=== PATIENT | female | born 1965 | race Caucasian/White ===

== ENCOUNTER → 2018-05-10 14:23 | Outpatient (CLI) | payer OTHER, SELFPAY ==
--- NOTE | 2018-05-10 | DI.CT.S_ITS ---
PROCEDURE: CT CERVICAL SPINE WO CON INDICATIONS: ARTHRODESIS STATUS/NECK PAIN TECHNIQUE: Noncontrast 3 mm thick sections acquired from the skull base to the T4 level. Sagittal and coronal reformats were then constructed. For radiation dose reduction, the following was used: automated exposure control, adjustment of mA and/or kV according to patient size. COMPARISON: [facility] [place], CR, XR CERVICAL SPINE 2 OR 3 VIEWS, 05/03/2018, 13:33. [facility] [place], CR, XR CERVICAL SPINE 2 OR 3 VIEWS, 02/09/2018, 16:32. [facility] [place], CR, XR CERVICAL SPINE 2 OR 3 VIEWS, 12/07/2017, 8:57. [facility], CT, C-SPINE WITHOUT CONTRAST, 08/23/2017, 12:48. FINDINGS: Image quality: Excellent. Bones: There is a new finding of anterolisthesis of C3 on C4 by 4 mm, across the disc/endplate prosthesis at this level. A similar disc/endplate prosthesis at C45 has been removed, with anterior interbody fixation device placed subsequent to the most recent available CT scan from 08/23/17. There has been a prior fusion between C5 and C6, stable. A prior anterior fusion plate crossing C6-C7 appears stable also. Soft tissues: Prevertebral soft tissues are normal in thickness. No paravertebral hematomas. No apical pneumothoraces. IMPRESSION: Interval development of anterolisthesis by 4 mm of C3 on C4 in this patient who has previously had a greater degree of anterolisthesis of C4 on C5, stabilized by removal of the prior endplate/disc prosthesis and anterior fixation. On the prior CT the C3-C4 relationship did not include anterolisthesis. No other change identified. Dictated by: Jerod Couch M.D. on 05/10/2018 at 16:24 Approved by: Jerod Couch M.D. on 05/10/2018 at 16:29
== END ==
PROVIDERS: PCP Internal Medicine; Visit Provider Orthopaedic Surgery
DX: M54.2 Cervicalgia (principal); M43.12 Spondylolisthesis, cervical region; Z98.1 Arthrodesis status
CPT/HCPCS: 72125

== ENCOUNTER → 2018-09-18 10:54 | Outpatient (CLI) | payer OTHER, SELFPAY ==
--- NOTE | 2018-09-18 | DI.NM.S_ITS ---
PROCEDURE: [place] BONE SPECT RADIOPHARMACEUTICAL: 17.6 mCi Tc-99m MDP IV. INDICATIONS: Unspecified inflammatory spondylopathy, cervical r TECHNIQUE: Delayed bone scintigrams were obtained of the region of interest 3-4 hours after intravenous administration of Tc-99m MDP. Additional tomographic (SPECT) imaging was performed and displayed in axial, coronal, and sagittal planes. COMPARISON: [facility], CT, CT CERVICAL SPINE WO CON, 05/10/2018, 14:31. [facility], RF, CERVICAL FACET, 08/24/2018, 9:53. FINDINGS: Asymmetric mild to moderate a.c. joint osteoarthritis is present, right greater than left. Note is made of a focus of relatively prominent isotope uptake seen at a single rib on the right, likely the right sixth rib laterally, in a position not typically involved by the trauma. Note is made of elevated isotope deposition within the cervical spine from C3-C7, in the areas of prior surgical intervention. No specific prominent focus of isotope deposition is seen that would indicate device loosening or disruption. Note is also made of right and left-sided elevated isotope uptake over the middle and lower thirds of the cervical spine facet joints, left slightly greater than right. IMPRESSION: 1. Expected pattern of isotope deposition through the cervical spine, from C3-C7, considering the operative procedures that had been performed in these areas and the degenerative changes present seen on recent CT scanning from April of this year. No focus suggestive of of device loosening or disruption is identified. 2. Bilateral facet osteoarthritic change is present over the middle and lower thirds of the cervical spine, left slightly greater than right. 3. Unexplained focus of single rib involvement, likely the sixth rib on the right, near the anterior border of the scapula in an area generally not involved by trauma. Please correlate clinically for whether workup for infection or neoplasm is warranted. 4. Right greater than left a.c. joint osteoarthritic change. Dictated by: Jerod Couch M.D. on 09/18/2018 at 16:36 Approved by: Jerod Couch M.D. on 09/18/2018 at 16:46
== END ==
PROVIDERS: PCP Internal Medicine; Visit Provider Orthopaedic Surgery
DX: M46.92 Unspecified inflammatory spondylopathy, cervical region (principal); M19.012 Primary osteoarthritis, left shoulder; M19.011 Primary osteoarthritis, right shoulder; M47.812 Spondylosis without myelopathy or radiculopathy, cervical region
CPT/HCPCS: 78320; A9503

== ENCOUNTER → 2018-09-25 15:09 | Outpatient (CLI) | payer OTHER, SELFPAY ==
--- NOTE | 2018-09-25 | DI.RAD.S_ITS ---
This blank DEXA report has been sent in error by the PACS system. The correct and complete report will be forthcoming in 1-2 days. Thank you for your patience and understanding. Dictated by: Milo Kyle M.D. on 09/25/2018 at 16:54 Approved by: Milo Kyle M.D. on 09/25/2018 at 16:54
== END ==
PROVIDERS: PCP Internal Medicine; Visit Provider Internal Medicine
DX: Z78.0 Asymptomatic menopausal state (principal); M81.0 Age-related osteoporosis without current pathological fracture; Z90.722 Acquired absence of ovaries, bilateral; Z82.62 Family history of osteoporosis
CPT/HCPCS: 77080; 77081

== ENCOUNTER → 2018-10-02 10:27 | Outpatient (CLI) | payer OTHER, SELFPAY ==
--- NOTE | 2018-10-02 | DI.CT.S_ITS ---
PROCEDURE: CT CHEST WO CON INDICATIONS: DEFORMITY OF CHEST AND RIB TECHNIQUE: Noncontrast 5 mm thick sections acquired from the pulmonary apices to the posterior costophrenic angles. 7 mm thick coronal and sagittal MIP reformats were then acquired. For radiation dose reduction, the following was used: automated exposure control, adjustment of mA and/or kV according to patient size. COMPARISON: [place], [place], [place] BONE SPECT, 09/18/2018, 14:16. FINDINGS: Image quality: Excellent. Lungs and pleura: No acute air space opacities. No pleural effusions or pneumothorax. Central and peripheral airways are patent and normal in caliber. Mediastinum: Heart size is normal. No pericardial effusion. No mediastinal adenopathy by size criteria. Thoracic aorta and central pulmonary arteries are normal in size. Esophagus is normal in caliber. No hiatal hernia. Bones and chest wall: No suspicious bony lesions. A healing sixth right lateral rib fractures noted (series 3, image 26). This most likely corresponds with the focus of abnormal radiotracer uptake on the comparison bone scan dated 09/18/18. No vertebral body compression fractures. No axillary or supraclavicular adenopathy by size criteria. Thyroid gland is unremarkable. Abdomen: Visualized upper abdominal solid organs and bowel loops appear normal in the absence of contrast. IMPRESSION: 1. Solitary healing right sixth lateral rib fracture which corresponds with the abnormal focus of radiotracer uptake on the comparison bone scan dated 09/18/18. 2. No other bony abnormalities. 3. No cardiopulmonary abnormalities. Dictated by: Kajal Ewing M.D. on 10/02/2018 at 13:33 Approved by: Kajal Ewing M.D. on 10/02/2018 at 13:38
== END ==
PROVIDERS: PCP Internal Medicine; Visit Provider Orthopaedic Surgery
DX: M95.4 Acquired deformity of chest and rib (principal); S22.31XD Fracture of one rib, right side, subsequent encounter for fracture with routine healing
CPT/HCPCS: 71250

== ENCOUNTER 2018-11-24 08:43 | Day surgery (SDC) | payer OTHER, SELFPAY ==
[2018-11-24] VITALS (7 sets, daily range): BP systolic 104–114; BP diastolic 62–76; PULSE 73–110; RESP 14–19; TEMP 36.6–36.7; O2SAT 96–100; BMI 25.7
--- NOTE | 2018-11-24 | PATH_ITS ---
[facility] Accession Number: [id number] . 01 Material submitted: . PART A: SIGMOID POLYP PART B: SIGMOID POLYP AT 15CM . 02 Diagnosis: A. Sigmoid Colon, Polyp, Biopsy: Hyperplastic polyp. . B. Sigmoid Colon, Polyp at 15 cm, Biopsy: Hyperplastic polyp. MRV/11/27/2018 . 02 Electronically signed: . Radha Gaming MD, Pathologist NPI- [id number] . 01 Gross description: . Part A: SIGMOID POLYP: Received in formalin are 2 fragment(s) of mantilla, soft tissue measuring 0.5 x 0.3 x 0.2 cm to 0.3 x 0.3 x 0.1 cm submitted entirely in 1 cassette(s) Part B: SIGMOID POLYP AT 15CM: Received in formalin are multiple fragment(s) of mantilla, soft tissue measuring 0.2 x 0.1 x 0.1 cm in aggregate submitted entirely in 1 cassette(s) /CKI /CKI . 02 Pathologist provided ICD-10: K63.5 . 02 CPT . 511313, [id number] Performed at: 01 [facility] [address] [facility], [place], [place] [id number] MD Niles Norwood MD Phone: [phone] Performed at: 02 [facility] [address] [place], [place] [id number] MD Radha Gaming MD Phone: [phone]
[2018-11-24] MEDS: SODIUM CHLORIDE 0.9% 1,000 ML 200 ML IV (09:52)
--- NOTE | 2018-11-24 10:30 | PM.HP.1 ---
History of Present Illness Date Patient Seen: 11/24/18 Time Patient Seen: 10:30 Chief complaint: 24510 SCREENING COLONOSCOPY Narrative: 53-year-old female with family history of colon cancer in her mother who was diagnosed at a very early age with the disease. By the patient's report her mother was in her 30s when she was treated for colorectal cancer. Patient has had several colonoscopies in the past with no significant findings. Last colonoscopy was 5 years ago. She presents now for colorectal surveillance given her family history. On further history today she denies any nausea, vomiting, abdominal pain, anorexia, unintended weight loss, change in bowel habits, diarrhea, constipation, melena, hematochezia, or bright red blood per rectum. 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) Surgical History History of breast surgery (Acute) History of colonoscopy (Acute) History of tonsillectomy (Acute) Family History Brother Age: 58 Hypertension Brother Age: 69 Hypertension High cholesterol Father Skin cancer Hypertension Mother Colon cancer Hypertension Stroke Sister Age: 62 Hypertension Sister Age: 68 Hypertension High cholesterol Social History household members: spouse Family & Social History Family History Brother Age: 58 Hypertension Brother Age: 69 Hypertension High cholesterol Father Skin cancer Hypertension Mother Colon cancer Hypertension Stroke Sister Age: 62 Hypertension Sister Age: 68 Hypertension High cholesterol Social History: household members spouse Meds Home Medications Medication Instructions Recorded Confirmed Type cyclobenzaprine 5 mg PO HSP #0 08/31/17 11/24/18 History acetaminophen [Tylenol Extra 500 mg PO Q6HP PRN #0 12/30/17 11/24/18 History Strength] Celebrex 200 mg BID 11/24/18 11/24/18 History Celexa 20 mg DAILY 11/24/18 11/24/18 History terbinafine 250 mg DAILY 11/24/18 11/24/18 History Allergies Allergy/AdvReac Type Severity Reaction Status Date / Time oxycodone [OXYCODONE] Allergy Severe ANAPHYLAXIS Unverified 02/01/18 12:11 gabapentin [GABAPENTIN] Allergy Intermediate RASH/ITCH Unverified 02/01/18 12:11 latex [LATEX] Allergy Mild HIVES Unverified 02/01/18 12:11 pregabalin [PREGABALIN] AdvReac Intermediate BLURRED Unverified 02/01/18 12:11 VISION, HEADACHES Review of Systems Review of Systems All systems reviewed & are unremarkable except as noted in HPI and below Exam Vital Signs (past 8 hours): - 11/24/18 09:38 Temperature 97.8 F Pulse Rate 73 Respiratory Rate 16 Blood Pressure 110/71 Pulse Oximetry 100 Oxygen Delivery Method Room Air Narrative Exam Narrative: Well-nourished well-developed female in no acute distress. Alert oriented x3. Neck is supple Regular rate and rhythm Abdomen soft, nondistended, nontender Extremities show no clubbing or cyanosis Objective Labs Labs: No recent laboratory or radiographic studies review Assessment & Plan Plan: Assessment/Plan Narrative: 53-year-old female with family history of colon cancer in her mother at an early age. Her last endoscopy was 5 years ago. Patient requires colorectal surveillance given her strong family history. Colonoscopy is once again recommended. Technical details reviewed. Risks, benefits, alternatives were explained. Risks including but not limited to sedation, aspiration, bleeding, pain, missed lesion, incomplete examination, need for further radiographic studies, colonic perforation, and need for further major abdominal surgery were all discussed in detail. All questions were answered to her satisfaction, and she voiced understanding. Consent was placed on the chart. We will proceed as above.
--- NOTE | 2018-11-24 10:34 | PM.PREOP ---
Pre-operative Note Interval Note History & Physical reviewed/Exam performed by Physician: Yes Changes to H&P: No H&P completed within 30 days and has changed as indicated here:: Patient seen and examined today. History physical examination placed on the chart. Obviously, there have been no changes within the last 15 min. Proceed with colonoscopy today as planned. ASA Class (for procedural sedation): II
[2018-11-24] MEDS: MIDAZOLAM 5 MG/5 ML VIAL IV (10:52)
[2018-11-24] MEDS: fentaNYL 250 MCG/5 ML INJ IV (10:53)
--- NOTE | 2018-11-24 11:01 | PM.OP.ENDO ---
Operative Date/Time/Diagnoses Date of procedure: 11/24/18 Time of procedure: 11:01 Pre-op diagnosis: Family history of colorectal cancer in her mother at an early age Post-op diagnosis: other (Colon polyps) Procedure & Clinicians Study performed: 1. Sedation per surgeon 2. Colonoscopy with cold forceps polypectomies Same procedure as scheduled: Yes Indications: 53-year-old female with family history of colorectal cancer in her mother who was diagnosed with the disease in her 30s. Patient has had prior colonoscopies for surveillance. Last colonoscopy was 5 years ago. She requires colorectal surveillance currently, and therefore colonoscopy is once again recommended. Surgeon: Edmar Le Procedure Notes SCOAP/Timeout: Yes Procedure in detail: After obtaining informed consent, the patient was brought to the GI suite and placed in the left lateral decubitus position on the examination table. After placement of appropriate monitors, the patient was given incremental doses of Versed and Fentanyl until an appropriate level of sedation was achieved. A time out was held per SCOAP protocol. A digital rectal examination was performed and did not reveal any masses or obstructing lesions. The colonoscope was gently passed into the patient's anus and the entire colon navigated to the level of the cecum with minimal difficulty. Once in the cecum, the scope was withdrawn being sure to go before and beyond all mucosal folds and prominences and get an excellent examination. The findings are noted above. At the level of the rectal vault, the scope was retroflexed and the internal anal canal was examined. The scope was straightened and air aspirated from the colon. The instrument was removed from the patient's body and the procedure was concluded. The patient was allowed to awaken from sedation without difficulty and taken to the post-anesthesia care unit in good condition. Scope withdrawal time: 12:40 min Sedation minutes: 25 Findings: polyp and other findings (Otherwise normal colon and rectum) Specimen(s): other (1. Sigmoid polyp above rectosigmoid junction 2. Second sigmoid polyp at 15 cm) Complications: none Recommendations: Colonscopy in 5 years, High fiber diet and Will call with biopsy results Plan for aftercare: 1. Discharge home Follow up: as needed Disposition: PACU
== END 2018-11-24 12:01 | disposition home or self-care (01) ==
PROVIDERS: PCP Internal Medicine; Visit Provider Surgery
PROC: 0DJD8ZZ Inspection of Lower Intestinal Tract, Via Natural or Artificial Opening Endoscopic (ICD-10-PCS; CPT 45378; principal; 2018-11-24 10:45)
DX: Z12.11 Encounter for screening for malignant neoplasm of colon (principal); Z80.0 Family history of malignant neoplasm of digestive organs; F41.9 Anxiety disorder, unspecified; F33.41 Major depressive disorder, recurrent, in partial remission; M79.7 Fibromyalgia; D12.5 Benign neoplasm of sigmoid colon
CPT/HCPCS: 45380; 88305; 99152; 99153; J2250; J3010

== ENCOUNTER → 2019-03-21 11:22 | Outpatient (CLI) | payer OTHER, SELFPAY ==
--- NOTE | 2019-03-21 | DI.CT.S_ITS ---
PROCEDURE: CT CERVICAL SPINE WO CON INDICATIONS: Strain of muscle, fascia and tendon at neck level TECHNIQUE: Noncontrast 3 mm thick sections acquired from the skull base to the T4 level. Sagittal and coronal reformats were then constructed. For radiation dose reduction, the following was used: automated exposure control, adjustment of mA and/or kV according to patient size. COMPARISON: [facility], CT, CT CERVICAL SPINE WO CON, 05/10/2018, 14:31. [facility], CT, C-SPINE WITHOUT CONTRAST, 08/23/2017, 12:48. FINDINGS: Image quality: Excellent. Bones: No fractures or dislocations. Visualized superior ribs are intact. Note is made of multiple prior cervical surgeries, to include interbody disc prosthesis at C3-C4 with grade 1 anterolisthesis previously present again noted at that level. Additionally, what appears to be a interbody bone graft at the disc level of C4-C5 with an anterior fusion staple is present. This was previously present also on the comparison study from April of last year. Osseous fusion between C5 and C6 appears chronic, and likely is operative in origin. There is also a C6-C7 anterior fusion plate with nonunion between the vertebral endplates at this level after presumed anterior discectomy. No subluxation is associated. Soft tissues: Prevertebral soft tissues are normal in thickness. No paravertebral hematomas. No apical pneumothoraces. IMPRESSION: Extensive multiple surgical procedures have been performed along the cervical spine from C3 inferiorly to the cervical thoracic junction. No change in alignment or evidence of device loosening or disruption is seen with reference to the prior CT scan utilizing standard technique 05/10/18. Source of new neck pain is not seen. Dictated by: Jerod Couch M.D. on 03/21/2019 at 15:37 Approved by: Jerod Couch M.D. on 03/21/2019 at 15:40
== END ==
PROVIDERS: PCP Internal Medicine; Visit Provider Orthopaedic Surgery
DX: S16.1XXD Strain of muscle, fascia and tendon at neck level, subsequent encounter (principal); M43.12 Spondylolisthesis, cervical region; M54.2 Cervicalgia; Z98.1 Arthrodesis status
CPT/HCPCS: 72125

== ENCOUNTER → 2019-08-30 19:18 | Outpatient (CLI) | payer OTHER, SELFPAY ==
--- NOTE | 2019-08-30 | DI.MRI.S_ITS ---
PROCEDURE: MR LUMBAR SPINE WO CON INDICATIONS: STRAIN OF MUSCLE, FASCIA AND TENDON OF LOWER BACK TECHNIQUE: Noncontrast sagittal T1 spin echo and T2 fast echo, sagittal STIR, axial T1 and T2 fast spin echo through the lumbar spine. In cases with scoliosis, additional coronal T2 fast spin echo may be performed. COMPARISON: [facility] [place], CR, XR LUMBAR SPINE 2 OR 3 VIEWS, 08/08/2019, 8:44. [facility], MR, L-SPINE WITHOUT CONTRAST, 10/07/2014, 13:00. FINDINGS: Image quality: Diagnostic. Alignment and Curvature: There is straightening of normal lumbar lordosis. Moderate dextroscoliosis of lumbar spine centered at L2-3 level is seen. Bone Marrow: Patient is status post right transpedicular fusion at L5-S1 level with intervertebral spacer placement. No gross marrow edema. No acute compression fracture. Grade 1 anterolisthesis of L5 on S1 is seen. Minimal retrolisthesis of L3 on L4 is noted. Vertebral body heights are preserved. No suspicious intraosseous lesion. Spinal Cord: Conus medullaris terminates at the T12-L1 level. Visualized cord demonstrates normal signal and size. Paraspinous Soft Tissues: No paravertebral masses. L1-L2: Decreased intervertebral disc space is seen. Diffuse disc bulge and bilateral facet arthrosis is seen with mild central canal stenosis, no significant neuroforaminal narrowing. L2-L3: Decreased intervertebral disc space and degenerative endplate changes are noted. There is broad-based disc bulge and bilateral facet arthrosis causing mild central canal stenosis and left-sided neuroforaminal narrowing. Bulging disc is seen contacting exiting left L2 nerve root. L3-L4: Broad-based disc bulge and bilateral facet arthrosis is seen with hypertrophy of ligamentum flavum. Moderate central canal stenosis and bilateral neuroforaminal narrowing is seen. There is likely mild compression of exiting left L3 nerve root. L4-L5: The broad-based disc bulge and bilateral facet arthrosis is seen. There is diffuse disc bulge and bilateral facet arthrosis causing moderate central canal stenosis. Right worse than left bilateral neuroforaminal narrowing is seen. L5-S1: Post surgical changes are noted. There is bilateral facet arthrosis and broad-based disc bulge. Mild central canal stenosis and bilateral neuroforaminal narrowing is seen. IMPRESSION: 1. Prior right transpedicular fusion at L5-S1 level. Grade 1 anterolisthesis of L5 on S1. No acute compression fracture. Minimal retrolisthesis at L3-4 level. 2. Moderate dextroscoliosis centered at L2-3 level. 3. Degenerative disc bulge and bilateral facet arthrosis throughout lumbar spine causing [id number] central canal stenosis and left worse than right bilateral neuroforaminal narrowing as described above. Dictated by: Milo Kyle M.D. on 08/31/2019 at 10:45 Approved by: Milo Kyle M.D. on 08/31/2019 at 10:53
== END ==
PROVIDERS: PCP Internal Medicine; Visit Provider Orthopaedic Surgery
DX: S39.012D Strain of muscle, fascia and tendon of lower back, subsequent encounter (principal); M47.816 Spondylosis without myelopathy or radiculopathy, lumbar region; M47.817 Spondylosis without myelopathy or radiculopathy, lumbosacral region; M51.36 Other intervertebral disc degeneration, lumbar region; M51.37 Other intervertebral disc degeneration, lumbosacral region; M48.061 Spinal stenosis, lumbar region without neurogenic claudication; M48.07 Spinal stenosis, lumbosacral region; M43.17 Spondylolisthesis, lumbosacral region; M41.86 Other forms of scoliosis, lumbar region; Z98.1 Arthrodesis status
CPT/HCPCS: 72148

== ENCOUNTER 2019-11-13 06:04 | Inpatient (IN) | payer MEDICARE, OTHER, SELFPAY ==
[2019-10-29 09:57] VITALS: BMI 26.6
[2019-11-13] VITALS (19 sets, daily range): BP systolic 88–147; BP diastolic 47–79; PULSE 77–110; RESP 11–20; TEMP 35.7–37.3; O2SAT 93–100; BMI 26.9
--- NOTE | 2019-11-13 | DI.RAD.S_ITS ---
PROCEDURE: XR LUMBAR SPINE 2-3V INDICATIONS: L1-2, L2-3, L3-4, L4-5 XLIF TECHNIQUE: Fluoroscopic images were obtained during an operative procedure and submitted for interpretation following the completion of the procedure. COMPARISON: [facility], , L-SPINE 2-3 VIEWS, 02/24/2016, 8:30. FINDINGS: These fluoroscopic images were performed for intraoperative localization. On these images, the apparent disc spacers can be seen at L1-L2, L3-L4, and L4-L5, with an apparent artificial disc at L2-L3. Please correlate with intraoperative findings. IMPRESSION: Normal intraoperative examination. Dictated by: Tavo Scruggs M.D. on 11/13/2019 at 9:46 Approved by: Tavo Scruggs M.D. on 11/13/2019 at 9:48
--- NOTE | 2019-11-13 07:29 | PM.PREOP ---
Pre-operative Note Interval Note History & Physical reviewed/Exam performed by Physician: Yes Changes to H&P: No
[2019-11-13] MEDS: LACTATED RINGERS 1,000 ML 42 ML IV ×2 (07:30→09:56)
--- NOTE | 2019-11-13 07:37 | PM.OP.1 ---
Operative Date/Time/Diagnoses Date of procedure: 11/13/19 Time of procedure: 10:13 Pre-op diagnosis: lumbar stenosis with radiculopathy thoracolumbar scoliosis history lumbar fusion Post-op diagnosis: same Procedure & Clinicians Procedure: L1-2, L23, L34, L45 anterior fusion with cages allograft bone Same procedure as scheduled: Yes Indications: [age] year old the with intractable pain from stenosis. They had failed conservative management and requested operative intervention. Risks and benefits of surgery were discussed and appropriate consents were obtained. Surgeon: Geo Wilson Solution Sales Senior Executive: Urvashi Hollingsworth Anesthesia Type: General Operative Notes Findings: None Closure Type: primary Specimen(s): none sent Prosthetic devices, grafts, tissues, transplants, or devices: NuVasive XLIF cages Applied: catheter Estimated Blood Loss (mL): 75 Procedure in detail: Patient was brought to the operating room and intubated on the table. Time-out was performed. They were then rolled over to the lateral decubitus position with the [id number]. The table was bent and they were taped down in the correct position. X-rays were taken to confirm a true AP and lateral. Preoperative antibiotics were given. The left flank was prepped and draped in standard sterile fashion. Using fluoroscopy, a 3 cm incision was made above the iliac crest. We bluntly dissected down with Metzenbaum scissors and split the 3 abdominal muscle layers. We dissected out the retroperitoneal space and using finger guidance, brought our 1st dilator down to the psoas muscle. Using neuromonitoring and fluoroscopy, we placed it through the psoas onto the L4-5 disc space in an anterior position and gradually pulled the dilator posteriorly along the disc space. We placed our guidewire and measured our depth for the retractor. We then dilated with the next 2 dilators and then placed our retractor over the dilators. Position was confirmed with fluoroscopy and the retractor was locked down to the bar. We opened up the retractor and checked with neuro monitoring. We then placed the ras and again checked with neuro monitoring. The retractor was opened further and the ALL retractor was placed. An annulotomy was performed. We then performed a complete diskectomy with ring curette, pituitary, box osteotome. A Ovalle was advanced across the disc space under fluoroscopy to release the lateral annulus on the opposite side. We then used sequentially larger trials and confirmed under fluoroscopy. An XLIF cage was packed with Osteocel bone graft and impacted into the L4-5 disc space with fluoroscopy for the anterior fusion at this level. The wound was irrigated. The retractor was closed down. The ras was removed. We carefully removed the retractor with direct visualization to make sure there was no neurovascular or abdominal injury. We then went up to the L3-4 level. Again we used the dilators and placed a retractor. A complete diskectomy was performed as well as lateral annulus released. We trialed with the 8, and then the 10 mm trial. When we were impacting the 10 mm trial, this kicked forward and tore through part of the ALL on the right-hand side but was still intact on the left anterior portion. We carefully placed another cage packed with bone graft for the anterior fusion at L3-4, with care to try to put it as posterior as possible as it kept trying to kick forward, but it was still well contained at the end, although slightly out laterally to maintain this position. The wound was irrigated and the retractor was removed with direct visualization. We then went up to L2-3. Again we we used our dilators then placed a retractor. This was placed on top of her osteophytes at this level and then opened up and pressed around the edges. We used a box osteotome to break through the osteophyte and then performed a complete diskectomy with lateral annular release. We trialed and placed another cage with bone graft for the anterior fusion at L2-3. This 1 was tight enough that I elected to use the Modulus titanium cage for stability. The wound was irrigated and the retractor was removed. Finally we went up to L1-2. Again we used our dilators placed a retractor. We performed a complete diskectomy with lateral release. We trialed and placed our cage with bone graft for the anterior fusion at L1-2. Wound was irrigated and the retractor was removed. Final x-rays were taken. The muscle fascia was closed, superficial tissue was closed. The skin was closed. Sterile dressing was placed. The patient was then rolled over, extubated, brought to the recovery room with no complications. Complications: none Post-operative Condition: stable Disposition: PACU Plan for aftercare: Inpatient. Plan for return for a T10 through S1 posterior instrumented fusion in 2 days.
[2019-11-13] MEDS: CEFAZOLIN 2 GM/100 ML FROZ.PIGGY IV ×3 (07:45→23:34)
--- NOTE | 2019-11-13 08:31 | SUR.OPER ---
Right lateral on padded OR table. Head on pillow, gel axillary roll, pillows x2 to support left arm. Legs flexed, pillows between legs, gel pad under down leg and ankle. Multiple passes of 3 inch cloth tape across shoulder, hip, upper and lower legs to secure patient on OR table by surgeon.
[2019-11-13] MEDS: THROMBIN (RECOMBINANT) 5,000 UNIT VIAL 5000 UNIT TOP (08:36)
[2019-11-13] MEDS: SODIUM CHLORIDE 0.9% 1,000 ML, GENTAMICIN 80 MG IRR (08:37)
[2019-11-13] MEDS: BUPIVACAINE 0.25% W/ EPI (PF) 10 ML VIAL 60 ML INJ (10:09)
[2019-11-13] MEDS: VANCOMYCIN 1,000 MG VIAL 1000 MG TOP (10:14)
--- NOTE | 2019-11-13 12:23 | SUR.PHASEI ---
Patient taken up to room 223 in bed by nursing staff. Receiving RN at bedside to receive patient.
[2019-11-13] MEDS: LACTATED RINGERS 1,000 ML 125 ML IV ×2 (12:38→20:13)
--- NOTE | 2019-11-13 13:19 | PC.NURSE ---
Addendum entered by Marianela Moe R.N. 11/13/19 14:33: Pt sat upright, more alert, having, water, saltine crackers and applesauce. C/O 8/10 pain to BLE, states has chronic pain to RLE at home. Dilaudid IV prn given at 1424. Plan to have po pain management after tolerating snack. Original Note: Day Shift- Report rec'd from RN Coordinator Keenan who rec'd report from PACU. Pt arrived to unit via bed at 1210 into room 223. Pt sleepy, arousable upon arrival, able to answer questions appropriately, denies pain, repositioned onto left side then 30 mins later onto right side supported with pillows behind back and in between legs. Ice pack to left flank/back incision dressing CDI area. VSS, afebrile. O2 sat 95-98% on RA, RR 14bpm , shallow, encouraged to take deep breaths. repositioned using SMOOTH bed tilt function. Pt's Orville in room, assisted with admission assessment, Orville took pt's home meds home after med review. Oriented to stuart light, bed tilt with staff assist, post op vital signs check. Pt denies pain, nausea, wants to sleep. Will hold Scheduled Celebrex until more alert and having fluids, light food. IVF started per DEC. Bilateral foot SCD's in place. call light within reach, bed alarm on.
[2019-11-13] MEDS: HYDROMORPHONE 0.5 MG INJ IV (14:24)
--- NOTE | 2019-11-13 15:15 | PT.IIE ---
Current Diagnoses Other forms of scoliosis, lumbar region (11/13/19) Spinal stenosis, lumbar region with neurogenic claudication (11/13/19) Arthrodesis status (11/13/19) Surgery Performed Operation Date: 11/13/19 07:45 Actual Procedures p L1-2,L23,L34,L45 anterior fusion w/cages and bone graft - Geo Wilson MD Operation Date: 11/15/19 07:45 <No data on this case meets the specified criteria> Surgical History (Last Updated 10/29/19 @ 10:43 by Macie Recinos RN) H/O: hysterectomy (Acute ~2014) History of breast surgery (Acute) History of colonoscopy (Acute) History of hysterectomy (Acute) History of lumbar fusion (Acute ~2015) History of lumbar surgery (Acute ~2015) History of lumbar surgery (Acute) History of repair of left rotator cuff (Acute) History of repair of right rotator cuff (Acute) History of surgery (Acute) History of tonsillectomy (Acute) Hx of arthroscopy of right knee (Acute 12/30/17) Hx of left knee surgery (Acute) Hx of rhinoplasty (Acute) S/P cervical spinal fusion (Acute) Status post Mohs surgery (Acute) Medical History (Last Updated 10/29/19 @ 10:45 by Macie Recinos RN) Anxiety (Acute) Atypical chest pain (Acute) Balance problem (Acute) Bartholin's cyst (Acute) Chronic constipation (Acute) Chronic low back pain (Acute) Cyst in hand (Acute) Depression (Acute) Difficulty in walking (Acute) Easy bruisability (Acute) Family history of colon cancer in mother (Acute) Fibromyalgia (Acute) History of hysteroscopy (Acute) Jaw fracture (Acute) 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) Osteoarthritis (Acute) Osteoporosis (Acute) Raynaud's disease (Acute) Rheumatoid arthritis (Acute) RLS (restless legs syndrome) (Acute) Scoliosis (Acute) Physical Therapy Inpatient Evaluation/Re-Eval M1 PT/OT-IP Prior Functional Status Start: 11/13/19 16:31 Freq: NEEDED Status: Active Protocol: Document 11/13/19 15:15 AB (Rec: 11/13/19 16:51 AB [id number]) Medical Review Prior Functional Status Medical History Reviewed Yes Communication able to make needs known Mobility and Gait pt stated that he is independent with all mobilities and ambulation without AD Social History Household Members spouse Living Arrangements RV Number of Floors (Floors) Two Floors Number of Stairs To Enter/Railing? pt lives in a 5th wheel has 4 steps to enter with L rail ascending has 2 steps to the living room with R rail ascending Home Environment Standard Height Toilet,Walk in Shower,Built-In Shower Seat Home Equipment Front Wheel Walker,Raised Toilet Seat Without Armrests, Hand Held Shower Additional Social History Comment stated that she will sleep on a power recliner at home M2 PT-IP Current Condition Start: 11/13/19 16:31 Freq: NEEDED Status: Active Protocol: Document 11/13/19 15:15 AB (Rec: 11/13/19 16:51 AB [id number]) Physical Therapy Current Condition Current Condition Evaluation Date 11/13/19 Treatment Diagnosis s/p L1-5 anterior fusion; difficulty in walking Onset Date 11/13/2019 Precautions Lumbar Precautions Log Roll,No Twisting,Limit Bending,Lifting Restriction of 10 lbs,Gait Belt above Incisional Area M3 PT-IP Subjective Start: 11/13/19 16:31 Freq: NEEDED Status: Active Protocol: Document 11/13/19 15:15 AB (Rec: 11/13/19 16:51 AB [id number]) Subjective Physical Therapy Visit Type Type Initial Evaluation Visit Start Time 15:15 Visit Stop Time 15:40 Total Visit Minutes 25 Notes pt s/p L1-5 anterior fusion with cage and plans to have another surgery in 2 days/ for T10-S1 posterior fusion per EMR Number of ADULT NEUROLOGIST Visits 0 Physical Therapy Visit Comments Patient Comments pt agreeable to do PT Therapy Pain Assessment Pain When Pain Assessed At Rest Pain Present Pain Present Pain Reported Location lower back Intensity 3 Scale Used Numeric (1 - 10) Pain Management Techniques Re-positioning,Timing of Activity with Medications M4 PT-IP Mobility and Gait Start: 11/13/19 16:31 Freq: NEEDED Status: Active Protocol: Document 11/13/19 15:15 AB (Rec: 11/13/19 16:51 AB [id number]) PT-Bed Mobility Assessment Rolling Type of Rolling Log Rolling Level of Assist Standby Assistance Supine to Sit Supine to Sit Standby Assistance PT-Transfer Assessment Sit to and From Stand Sit to and from Stand Contact Guard Assistance,1 Person Assistance Equipment Transfer Assistive Device Gait Belt,Front Wheeled Walker Orthotic/Prosthetic Devices or Brace: No Transfers Transfer Destination Chair Transfer Technique ambulated using FWW Transfer Ability Level of Assist Contact Guard Assistance, Minimal Assistance,1 Person Assistance,Use of Upper Extremities Comments Mobility Comments pt agreed to do PT. BP: 116/ 74. reviewed back precautions and log roll bed mobility. pt completed supine to sit SBA . pt was able to sit on EOB SBA. completed sit to stand CGA and cues. ambulated towards the chair using FWW ~ 10 ft requiring CGA to occasionaly min A and cues. pt refused further ambualation but agreed to sit up on chair . positioned pt on chair. call light and table placed within reach. Gait Assessment Gait Gait Assistance Required: Contact Guard Assist,Minimum Assistance Distance (Feet) 10 Able to Maintain Weight Bearing Status Yes During Gait Assistive Devices Assistive Device Gait Belt,Front Wheeled Walker Orthotic/Prosthetic Devices or Brace: No Gait Deviations General Gait Pattern Antalgic,Decreased Stride Length,Decreased Feet Clearance Factors Limiting Gait Function Factors Limiting Gait Function Decreased Activity Tolerance, Decreased Strength,Limited Range of Motion,Pain,Poor Balance,Poor Safety Awareness Comments Gait Comments pls refer to mobility section for details PT-Balance Assessment Sitting Balance and Reactions Static Sitting Balance Ability Good Dynamic Sitting Balance Ability Good Standing Balance and Reactions Static Standing Balance Ability Fair Dynamic Standing Balance Ability Fair Device Used FWW M5 PT-IP Objective Assessments Start: 11/13/19 16:31 Freq: NEEDED Status: Active Protocol: Document 11/13/19 15:15 AB (Rec: 11/13/19 16:51 AB [id number]) Orientation Orientation/Cognition Level of Alertness Alert Orientation Name,Age,Place,Situation Language Function Ability No Deficits Noted Safety Awareness Understands Safety Issues Memory Description No Deficits Noted Gross Range of Motion Lower Extremity ROM Assessment Within Functional Limits Strength Lower Extremity Strength Assessment Bilaterally Impaired Hip 4-/5 Knee 3+/5 Coordination Assessment Gross Coordination Gross Coordination WNL Muscle Tone Muscle Tone WNL Yes M6 PT-IP Treatment Start: 11/13/19 16:31 Freq: NEEDED Status: Active Protocol: Document 11/13/19 15:15 AB (Rec: 11/13/19 16:51 AB [id number]) Physical Therapy Treatment Education Education Provided Precautions,Weight Bearing Status,Post-Op Packet,Safety M7 PT-IP Assessment and Plan Start: 11/13/19 16:31 Freq: NEEDED Status: Active Protocol: Document 11/13/19 15:15 AB (Rec: 11/13/19 16:51 AB [id number]) PT Summary Assessment and Plan Potential Rehabilitation Potential Good Status of Condition at Evaluation Stable Summary Impairments Pain,ROM,Strength,Balance, Coordination,Sensation,Tone, Cognition,Bed Mobility, Transfers,Gait,Activity Tolerance Assessment Summary pt s/p L1-L5 anterior fusion and plans to have another surgery on for T10-L1 posterior fusion. currently, pt requires CGA to min A with ambulation. d/c plan depending on level of assistance after 2nd surgery but pt plans to go home and spouse will assist pt and her son will also be able to assist when spouse is not available. will continue to assess progress. Goals Bed Mobility Goal Independent Transfer Goal Independent,Front Wheeled Walker Gait Goal Independent,Front Wheel Walker Gait Distance 150 Other Goals up/down 4 steps L rail ascending up/down 2 steps R rail ascending Days to Meet Goals 10 Frequency of Treatment Frequency Of Treatment Twice a Day Treatment Plan Physical Therapy Treatment Plan Bed Mobility Training,Transfer Training,Gait Training, Therapeutic Exercise,Balance Retraining,Post Op Education, Discharge Planning,Hot or Cold Pack,Neuromuscular Re-ed, Coordination Retraining,Manual Therapy Other Recommendations and Next Treatment ambulation, bed mobility Focus Recommendations To Nursing Amount of Assist Needed 1 Person Assist Discharge Recommendations PT Discharge Recommendations Home with Assistance Other Discharge Recommendations d/c plan depending on level of assistance after 2nd surgery on 11/15/2019
[2019-11-13] MEDS: CELECOXIB 200 MG CAPSULE 400 MG PO (15:22)
--- NOTE | 2019-11-13 15:35 | CM.DANOTE ---
Discharge Planning/Care Management CM Discharge Assessment Start: 11/13/19 15:34 Freq: Status: Active Protocol: Document 11/13/19 15:35 ITV (Rec: 11/13/19 15:35 ITV [id number]) Discharge Planning Assessment Advance Directives? No History Provided By Medical Record Prior Living Arrangements RV Household Members spouse Review Status In Process Pre-Anesthesia Assessment Start: 10/29/19 09:57 Freq: Status: Complete Protocol: Document 10/29/19 09:57 CAB (Rec: 10/29/19 10:46 CAB [id number]) Pre-Anesthesia Assessment Preferred Name Randa Patient Information Reviewed Via Phone Assessment Assessment Completed With Patient Primary Care Provider NAV[employer] Specialist Seen Swimming Pool Salesperson,Orthopedist, Animal Ride Manager,Other Primary Language Setswana Caustic Room Operator Required No Height 165.1 cm Weight 72.575 kg Body Mass Index (BMI) 26.6 Hearing Ability Normal Visual Assist Magnifying Glass Dentition Type Teeth, Natural Present,Partial - Upper Barriers to Learning None Hx Anesthesia Reactions No: Pt denies Hx Family Anesthesia Reaction Yes: Mom-PONV Hx Malignant Hyperthermia No Hx Blood Transfusions No Anesthesia Review Requested No alcohol intake current Alcohol Intake Frequency Other: Occasional Smoking Status Never smoker Substance Use Type does not use Pain Present Pain Reported Musculoskeletal Symptoms Abnormal Gait,Back Pain, Difficulty Walking,Joint Stiffness,Muscle Weakness,Neck Pain,Numbness,Radiating Pain into Limb,Tingling History of Falling (Recent or History of Yes ) Patient is completely paralyzed or No completely immobile Mental Status Oriented to own ability Is patient on oxygen? No Does patient have COOPER/SOB No Hx Sleep Apnea No Currently Taking a Beta Ady No Can You Climb a Flight of Stairs Without Yes SOB Hx Chest Pain Yes: Greater than 15 years ago , none since Hx SOB No Hx Syncope or Dizziness No Anti-Coagulant Therapy No Has a Newspaper Columnist No Cardiac Testing No Hx Pacemaker/ICD No Pacemaker Rep Required? No Cardiac Clearance Received Not Applicable Diet Type At Home Regular dysphagia Yes: Occasional, pt feels r/t mult neck surgeries Bladder Pattern Incontinent, Stress Urinary Catheter Present No Hx Urinary Self Catheterization No Diabetes No Patient No Lactating No Hx Drug Resistant Organism No Presence of External or Internal Medical No Devices Have you traveled outside the [facility] in the last 30 days? Marital Status Lives With spouse Prior Living Arrangements RV Support System Spouse Does the Patient Have Assistance After Yes Surgery Patient Discharge Plan Description Return Home Comment Pt advised 7 days total for both surgeries Feels Safe in Current Environment Yes Been Physically Hurt or Threatened By a No Person in Current Environment Do you have thoughts of harming yourself None or others? Are you currently considering suicide? No Do you have a plan to hurt yourself or No Plan others? Do You Have Any Spiritual Beliefs That No May Affect Your HC Choices? Do You Have Any Cultural Practices That No May Affect Your HC Choices? Who Can We Speak to About Patient's Care Family, friends Identifying Code for Release of Patient Declines to issue Information Health Care Proxy/Next of Kin Orville () Health Care Proxy Emergency Contact Name Orville () Emergency Contact Advance Directives? No Power of Stoneworking Belt Sander Yes Power of Stoneworking Belt Sander Name Orville Doyle Power of Stoneworking Belt Sander PAC Instructions Medications to take/avoid, Nasal antibiotic,No ETOH/ petroleum product on skin DOS, NPO,Pre-surgical wash,Sturdy shoes/comfortable clothes,Do not bring valuables and remove jewelry
--- NOTE | 2019-11-13 15:39 | CM.DANOTE ---
Discharge Planning/Care Management DCP: assessment: Initiated: Case received, EMR reviewed and pre-op assessment information noted: from 10/29: CAB. Pt's d/c plan as expressed to the pre-op RN was for d/c to home setting when stable for same. Pt has been in surgery most of the day; has now arrived to the acute care floor. Pt is a 54 year old female who admitted to care of surgeon Dr. Wilson for a planned spinal fusion/hardware removal. Planned as a 2 part surgery with next surgery scheduled for 11/15. Payer: Medicare A only and for Life. INPT admission status: confirmed by UR RN Brti. OT and PT will be seeing pt. P: DCP team to meet with pt to continue the assessment process and follow as the d/c needs are clarified. pt is well poised for snf level rehab should this be needed as she can access her Medicare A snf benefit for same. CM Discharge Assessment Start: 11/13/19 15:34 Freq: Status: Active Protocol: Document 11/13/19 15:35 ITV (Rec: 11/13/19 15:35 ITV [id number]) Discharge Planning Assessment Advance Directives? No History Provided By Medical Record Prior Living Arrangements RV Household Members spouse Review Status In Process Document 11/13/19 15:38 ITV (Rec: 11/13/19 15:39 ITV [id number]) Discharge Planning Assessment Advance Directives? No History Provided By Medical Record Prior Living Arrangements RV Household Members spouse Review Status In Process Pre-Anesthesia Assessment Start: 10/29/19 09:57 Freq: Status: Complete Protocol: Document 10/29/19 09:57 CAB (Rec: 10/29/19 10:46 CAB [id number]) Pre-Anesthesia Assessment Preferred Name Randa Patient Information Reviewed Via Phone Assessment Assessment Completed With Patient Primary Care Provider [employer] Specialist Seen Android Ios Developer,Orthopedist, Stitching Machine Setter,Other Primary Language Swedish Train Brakeman Required No Height 165.1 cm Weight 72.575 kg Body Mass Index (BMI) 26.6 Hearing Ability Normal Visual Assist Magnifying Glass Dentition Type Teeth, Natural Present,Partial - Upper Barriers to Learning None Hx Anesthesia Reactions No: Pt denies Hx Family Anesthesia Reaction Yes: Mom-PONV Hx Malignant Hyperthermia No Hx Blood Transfusions No Anesthesia Review Requested No alcohol intake current Alcohol Intake Frequency Other: Occasional Smoking Status Never smoker Substance Use Type does not use Pain Present Pain Reported Musculoskeletal Symptoms Abnormal Gait,Back Pain, Difficulty Walking,Joint Stiffness,Muscle Weakness,Neck Pain,Numbness,Radiating Pain into Limb,Tingling History of Falling (Recent or History of Yes ) Patient is completely paralyzed or No completely immobile Mental Status Oriented to own ability Is patient on oxygen? No Does patient have COOPER/SOB No Hx Sleep Apnea No Currently Taking a Beta Ady No Can You Climb a Flight of Stairs Without Yes SOB Hx Chest Pain Yes: Greater than 15 years ago , none since Hx SOB No Hx Syncope or Dizziness No Anti-Coagulant Therapy No Has a Early Childhood Special Educator No Cardiac Testing No Hx Pacemaker/ICD No Pacemaker Rep Required? No Cardiac Clearance Received Not Applicable Diet Type At Home Regular dysphagia Yes: Occasional, pt feels r/t mult neck surgeries Bladder Pattern Incontinent, Stress Urinary Catheter Present No Hx Urinary Self Catheterization No Diabetes No Patient No Lactating No Hx Drug Resistant Organism No Presence of External or Internal Medical No Devices Have you traveled outside the [facility] in the last 30 days? Marital Status Lives With spouse Prior Living Arrangements RV Support System Spouse Does the Patient Have Assistance After Yes Surgery Patient Discharge Plan Description Return Home Comment Pt advised 7 days total for both surgeries Feels Safe in Current Environment Yes Been Physically Hurt or Threatened By a No Person in Current Environment Do you have thoughts of harming yourself None or others? Are you currently considering suicide? No Do you have a plan to hurt yourself or No Plan others? Do You Have Any Spiritual Beliefs That No May Affect Your HC Choices? Do You Have Any Cultural Practices That No May Affect Your HC Choices? Who Can We Speak to About Patient's Care Family, friends Identifying Code for Release of Patient Declines to issue Information Health Care Proxy/Next of Kin Orville quinton) Health Care Proxy Emergency Contact Name Orville alcantara) Emergency Contact Advance Directives? No Power of Sterilizer Operator Yes Power of Sterilizer Operator Name Orville Doyle Power of Sterilizer Operator PAC Instructions Medications to take/avoid, Nasal antibiotic,No ETOH/ petroleum product on skin DOS, NPO,Pre-surgical wash,Sturdy shoes/comfortable clothes,Do not bring valuables and remove jewelry
[2019-11-13] MEDS: HYDROCODONE/ACET 5/325 TABLET 2 TAB PO (16:31)
[2019-11-13] MEDS: DOCUSATE 100 MG CAPSULE PO (20:12)
[2019-11-13] MEDS: ACETAMINOPHEN 325 MG TABLET 650 MG PO (20:12)
[2019-11-13] MEDS: CITALOPRAM 20 MG TABLET PO (20:13)
[2019-11-13] MEDS: SENNOSIDES 8.6 MG TABLET 17.2 MG PO (20:13)
--- NOTE | 2019-11-14 04:53 | PC.NURSE ---
Pt POD 1 s/p lumbar fusion with cage and bone graft. Rates pain 0-1/10 overnight, denies need for pain medication. Neurovascular checks normal. Pt denies numbness/tingling out of her normal. Unable to lie on back at baseline. Logrolls to left/right side q2hrs with use of marielle bed. Hood intact, draining large amt clear yellow urine. Order to discontinue Hood today. Plan for pt to remain inpt and have second step of surgery on . Continue to monitor for neurovascular changes.
[2019-11-14 05:00] VITALS: BP 111/63; PULSE 75; RESP 16; TEMP 36; O2SAT 99
[2019-11-14] MEDS: LACTATED RINGERS 1,000 ML 125 ML IV ×3 (05:32→21:17)
[2019-11-14] MEDS: SODIUM CHLORIDE 0.9% FLUSH 10 ML IV (05:32)
[2019-11-14] MEDS: ACETAMINOPHEN 325 MG TABLET 650 MG PO (05:34)
[2019-11-14 05:35] LABS: Hematocrit 36.2 % (36-46); Hemoglobin 12.1 g/dL (12.0-16.0)
[2019-11-14 07:42] VITALS: BP 111/66; PULSE 97; RESP 16; TEMP 36.8; O2SAT 98
--- NOTE | 2019-11-14 08:05 | PM.PNPO.1 ---
Subjective Subjective Date Patient Seen: 11/14/19 Time Patient Seen: 08:05 Interval history: She is doing well. Minimal pain at rest. However, she had a significant amount of back pain after sitting up for about 5 minutes yesterday and didn't do anything else besides that. No more leg symptoms since she woke up from surgery. Exam Vital Signs (past 8 hours): - 11/14/19 05:00 Temperature 96.8 F L Pulse Rate 75 Respiratory Rate 16 Blood Pressure 111/63 Pulse Oximetry 99 Oxygen Delivery Method Room Air Oxygen Flow Rate 0 Const Orientation: alert and oriented x3 Back/Spine/Pelvis Other: Minimal drainage. 5/5 motor both lower extremities Objective Labs Result Diagrams: 11/14/19 04:55 Labs: Laboratory Results - last 24 hr 11/14/19 04:55 Hgb 12.1 Hct 36.2 Assessment & Plan Post-op Postoperative Procedures: Procedures Operation Date: 11/13/19 07:45 Actual Procedures Side Surgeon p L1-2,L23,L34,L45 anterior fusion w/cages and bone graft Geo Wilson MD Operation Date: 11/15/19 07:45 <No data on this case meets the specified criteria> She is doing well. We're going to return tomorrow for the posterior half of her surgery with a T10 through S1 instrumented fusion with bone graft. Risks and benefits were again discussed and consents signed. Quality VTE Deep Vein Thrombosis/Pulmonary Embolism Present on Admission: No
[2019-11-14] MEDS: DOCUSATE 100 MG CAPSULE PO ×2 (08:41→21:16)
--- NOTE | 2019-11-14 09:43 | PT.IPTN ---
Current Diagnoses Other forms of scoliosis, lumbar region (11/13/19) Spinal stenosis, lumbar region with neurogenic claudication (11/13/19) Arthrodesis status (11/13/19) Surgery Performed Operation Date: 11/13/19 07:45 Actual Procedures p L1-2,L23,L34,L45 anterior fusion w/cages and bone graft - Geo Wilson MD Operation Date: 11/15/19 07:45 <No data on this case meets the specified criteria> Physical Therapy Treatment Note M2 PT-IP Current Condition Start: 11/13/19 16:31 Freq: NEEDED Status: Active Protocol: Document 11/13/19 15:15 AB (Rec: 11/13/19 16:51 AB [id number]) Physical Therapy Current Condition Current Condition Evaluation Date 11/13/19 Treatment Diagnosis s/p L1-5 anterior fusion; difficulty in walking Onset Date 11/13/2019 Precautions Lumbar Precautions Log Roll,No Twisting,Limit Bending,Lifting Restriction of 10 lbs,Gait Belt above Incisional Area M3 PT-IP Subjective Start: 11/13/19 16:31 Freq: NEEDED Status: Active Protocol: Document 11/14/19 09:33 LJ (Rec: 11/14/19 09:43 LJ [id number]) Subjective Physical Therapy Visit Type Type Treatment Note Visit Start Time 09:15 Visit Stop Time 09:33 Total Visit Minutes 18 Notes Pt sleeping in bed willing to get up amd ambulate in the room. Therapy Pain Assessment Pain When Pain Assessed At Rest Pain Present Pain Present Pain Reported M4 PT-IP Mobility and Gait Start: 11/13/19 16:31 Freq: NEEDED Status: Active Protocol: Document 11/14/19 09:33 LJ (Rec: 11/14/19 09:43 LJ [id number]) PT-Bed Mobility Assessment Rolling Type of Rolling Log Rolling Level of Assist Standby Assistance Supine to Sit Supine to Sit Standby Assistance Sit to Supine Sit to Supine Standby Assistance Scooting Scooting to Edge of Bed Standby Assistance PT-Transfer Assessment Sit to and From Stand Sit to and from Stand Standby Assistance,1 Person Assistance Equipment Transfer Assistive Device Gait Belt,Front Wheeled Walker Orthotic/Prosthetic Devices or Brace: No Transfers Transfer Destination Bed Transfer Technique ambulated using FWW Transfer Ability Level of Assist Standby Assistance,1 Person Assistance,Use of Upper Extremities Comments Mobility Comments Pt in bed agreeable to do PT. SBA for bed mobility and transfers. Pt reuired assist for IV only. Gait Assessment Gait Gait Assistance Required: Standby Assistance,Minimum Assistance Distance (Feet) 90 Able to Maintain Weight Bearing Status Yes During Gait Assistive Devices Assistive Device Gait Belt,Front Wheeled Walker Orthotic/Prosthetic Devices or Brace: No Gait Deviations General Gait Pattern Antalgic,Decreased Stride Length,Decreased Feet Clearance Factors Limiting Gait Function Factors Limiting Gait Function Decreased Activity Tolerance, Decreased Strength,Limited Range of Motion,Pain,Poor Balance,Poor Safety Awareness Comments Gait Comments Pt ambulated around room x3 laps with Min assist for IV. Pt is steady with slow gait and proper FWW management. M5 PT-IP Objective Assessments Start: 11/13/19 16:31 Freq: NEEDED Status: Active Protocol: Document 11/13/19 15:15 AB (Rec: 11/13/19 16:51 AB [id number]) Orientation Orientation/Cognition Level of Alertness Alert Orientation Name,Age,Place,Situation Language Function Ability No Deficits Noted Safety Awareness Understands Safety Issues Memory Description No Deficits Noted Gross Range of Motion Lower Extremity ROM Assessment Within Functional Limits Strength Lower Extremity Strength Assessment Bilaterally Impaired Hip 4-/5 Knee 3+/5 Coordination Assessment Gross Coordination Gross Coordination WNL Muscle Tone Muscle Tone WNL Yes M6 PT-IP Treatment Start: 11/13/19 16:31 Freq: NEEDED Status: Active Protocol: Document 11/13/19 15:15 AB (Rec: 11/13/19 16:51 AB [id number]) Physical Therapy Treatment Education Education Provided Precautions,Weight Bearing Status,Post-Op Packet,Safety M7 PT-IP Assessment and Plan Start: 11/13/19 16:31 Freq: NEEDED Status: Active Protocol: Document 11/14/19 09:33 LJ (Rec: 11/14/19 09:43 LJ [id number]) PT Summary Assessment and Plan Potential Rehabilitation Potential Good Status of Condition at Evaluation Stable Summary Impairments Pain,ROM,Strength,Balance, Coordination,Sensation,Tone, Cognition,Bed Mobility, Transfers,Gait,Activity Tolerance Assessment Summary Pt moving well with bed mobility, transfers and gait. Requires SBA with Zahida for IV. Goals Bed Mobility Goal Independent Transfer Goal Independent,Front Wheeled Walker Gait Goal Independent,Front Wheel Walker Gait Distance 150 Other Goals up/down 4 steps L rail ascending up/down 2 steps R rail ascending Days to Meet Goals 10 Frequency of Treatment Frequency Of Treatment Twice a Day Treatment Plan Physical Therapy Treatment Plan Bed Mobility Training,Transfer Training,Gait Training, Therapeutic Exercise,Balance Retraining,Post Op Education, Discharge Planning,Hot or Cold Pack,Neuromuscular Re-ed, Coordination Retraining,Manual Therapy Other Recommendations and Next Treatment ambulation, bed mobility Focus Recommendations To Nursing Amount of Assist Needed 1 Person Assist Discharge Recommendations PT Discharge Recommendations Home with Assistance Other Discharge Recommendations d/c plan depending on level of assistance after 2nd surgery on 11/15/2019
[2019-11-14 11:30] VITALS: BP 121/65; PULSE 93; RESP 16; TEMP 37.2; O2SAT 97
--- NOTE | 2019-11-14 12:54 | OT.IPNOTE ---
Pt wanted to hold off on OT eval until tomorrow after her second back surgery.. Pt states has already been up with PT. therefore to see pt tomorrow for OT eval.
--- NOTE | 2019-11-14 14:45 | PT.IPTN ---
Current Diagnoses Other forms of scoliosis, lumbar region (11/13/19) Spinal stenosis, lumbar region with neurogenic claudication (11/13/19) Arthrodesis status (11/13/19) Surgery Performed Operation Date: 11/13/19 07:45 Actual Procedures p L1-2,L23,L34,L45 anterior fusion w/cages and bone graft - Geo Wilson MD Operation Date: 11/15/19 07:45 <No data on this case meets the specified criteria> Physical Therapy Treatment Note M2 PT-IP Current Condition Start: 11/13/19 16:31 Freq: NEEDED Status: Active Protocol: Document 11/13/19 15:15 AB (Rec: 11/13/19 16:51 AB [id number]) Physical Therapy Current Condition Current Condition Evaluation Date 11/13/19 Treatment Diagnosis s/p L1-5 anterior fusion; difficulty in walking Onset Date 11/13/2019 Precautions Lumbar Precautions Log Roll,No Twisting,Limit Bending,Lifting Restriction of 10 lbs,Gait Belt above Incisional Area M3 PT-IP Subjective Start: 11/13/19 16:31 Freq: NEEDED Status: Active Protocol: Document 11/14/19 14:30 LJ (Rec: 11/14/19 14:45 LJ [id number]) Subjective Physical Therapy Visit Type Type Treatment Note Visit Start Time 14:16 Visit Stop Time 14:30 Total Visit Minutes 14 Physical Therapy Visit Comments Patient Comments Pt in bed with in room . Willing to get up and walk in hallway. Stated her left leg felt weird, like it didn 't want to do what she told it to do. She then stated the DrEnrico told her that was normal and he had to cut through some muscle. Therapy Pain Assessment Pain When Pain Assessed At Rest Pain Present Pain Present Pain Reported M4 PT-IP Mobility and Gait Start: 11/13/19 16:31 Freq: NEEDED Status: Active Protocol: Document 11/14/19 14:30 LJ (Rec: 11/14/19 14:45 LJ [id number]) PT-Bed Mobility Assessment Rolling Type of Rolling Log Rolling Level of Assist Standby Assistance Supine to Sit Supine to Sit Standby Assistance Sit to Supine Sit to Supine Standby Assistance Scooting Scooting to Edge of Bed Standby Assistance PT-Transfer Assessment Sit to and From Stand Sit to and from Stand Standby Assistance,1 Person Assistance Equipment Transfer Assistive Device Gait Belt,Front Wheeled Walker Orthotic/Prosthetic Devices or Brace: No Transfers Transfer Destination Bed Transfer Technique ambulated using FWW Transfer Ability Level of Assist Standby Assistance,1 Person Assistance,Use of Upper Extremities Comments Mobility Comments Pt SBA for bed mobility and required assist for IV and Hood. Pt used UEs on bed to stand Gait Assessment Gait Gait Assistance Required: Standby Assistance,Minimum Assistance Distance (Feet) 140 Able to Maintain Weight Bearing Status Yes During Gait Assistive Devices Assistive Device Gait Belt,Front Wheeled Walker Orthotic/Prosthetic Devices or Brace: No Gait Deviations General Gait Pattern Antalgic,Decreased Stride Length,Decreased Feet Clearance Factors Limiting Gait Function Factors Limiting Gait Function Decreased Activity Tolerance, Decreased Strength,Limited Range of Motion,Pain,Poor Balance,Poor Safety Awareness Comments Gait Comments Pt ambulated to sink to brush teeth. Ambulated SBA and Zahida (for IV) in hallway. Good FWW management M5 PT-IP Objective Assessments Start: 11/13/19 16:31 Freq: NEEDED Status: Active Protocol: Document 11/13/19 15:15 AB (Rec: 11/13/19 16:51 AB [id number]) Orientation Orientation/Cognition Level of Alertness Alert Orientation Name,Age,Place,Situation Language Function Ability No Deficits Noted Safety Awareness Understands Safety Issues Memory Description No Deficits Noted Gross Range of Motion Lower Extremity ROM Assessment Within Functional Limits Strength Lower Extremity Strength Assessment Bilaterally Impaired Hip 4-/5 Knee 3+/5 Coordination Assessment Gross Coordination Gross Coordination WNL Muscle Tone Muscle Tone WNL Yes M6 PT-IP Treatment Start: 11/13/19 16:31 Freq: NEEDED Status: Active Protocol: Document 11/13/19 15:15 AB (Rec: 11/13/19 16:51 AB [id number]) Physical Therapy Treatment Education Education Provided Precautions,Weight Bearing Status,Post-Op Packet,Safety M7 PT-IP Assessment and Plan Start: 11/13/19 16:31 Freq: NEEDED Status: Active Protocol: Document 11/14/19 14:30 LJ (Rec: 11/14/19 14:45 LJ [id number]) PT Summary Assessment and Plan Potential Rehabilitation Potential Good Status of Condition at Evaluation Stable Summary Impairments Pain,ROM,Strength,Balance, Coordination,Sensation,Tone, Cognition,Bed Mobility, Transfers,Gait,Activity Tolerance Assessment Summary Pt with less pain this afternoon. Requires SBA for mobility and Zahida for IV during ambulation. Pt did not want to walk any farther though stated she could. Goals Bed Mobility Goal Independent Transfer Goal Independent,Front Wheeled Walker Gait Goal Independent,Front Wheel Walker Gait Distance 150 Other Goals up/down 4 steps L rail ascending up/down 2 steps R rail ascending Days to Meet Goals 10 Frequency of Treatment Frequency Of Treatment Twice a Day Treatment Plan Physical Therapy Treatment Plan Bed Mobility Training,Transfer Training,Gait Training, Therapeutic Exercise,Balance Retraining,Post Op Education, Discharge Planning,Hot or Cold Pack,Neuromuscular Re-ed, Coordination Retraining,Manual Therapy Other Recommendations and Next Treatment ambulation, bed mobility Focus Recommendations To Nursing Amount of Assist Needed 2 Person Assist Discharge Recommendations PT Discharge Recommendations Home with Assistance Other Discharge Recommendations d/c plan depending on level of assistance after 2nd surgery on 11/15/2019
--- NOTE | 2019-11-14 16:41 | PC.NURSE ---
Patient alert, oriented, denies pain and nausea. Assisted to right side, CMS+, patient refused foot SCDs at this time, states I've had them on all day.
[2019-11-14 16:57] VITALS: BP 108/65; PULSE 98; RESP 19; TEMP 36.7; O2SAT 99
[2019-11-14 20:12] VITALS: BP 110/60; PULSE 91; RESP 16; TEMP 36.8; O2SAT 93
[2019-11-14] MEDS: SENNOSIDES 8.6 MG TABLET 17.2 MG PO (21:16)
[2019-11-14] MEDS: CITALOPRAM 20 MG TABLET PO (21:17)
[2019-11-14 23:00] VITALS: BP 117/76; PULSE 88; RESP 16; TEMP 36.7; O2SAT 96
[2019-11-15] VITALS (19 sets, daily range): BP systolic 92–132; BP diastolic 56–87; PULSE 85–105; RESP 7–23; TEMP 35.9–36.9; O2SAT 95–100; BMI 26.9
--- NOTE | 2019-11-15 | DI.RAD.S_ITS ---
PROCEDURE: XR LUMBAR SPINE 2-3V INDICATIONS: POSTERIOR SCREWS T10 TO S1 BILATERAL TECHNIQUE: Fluoroscopic images were obtained during an operative procedure and submitted for interpretation following the completion of the procedure. COMPARISON: [facility] Outside Film, CT, CT LUMBAR SPINE WITHOUT CONTRAST, 09/18/2019, 13:42. [facility], CR, XR LUMBAR SPINE 2-3V, 11/13/2019, 11:04. FINDINGS: These fluoroscopic images were performed for intraoperative localization. On these images, lumbar fixation hardware has been placed posteriorly T10-S1. Please correlate with intraoperative findings. IMPRESSION: Normal intraoperative examination. Dictated by: Tavo Scruggs M.D. on 11/15/2019 at 11:09 Approved by: Tavo Scruggs M.D. on 11/15/2019 at 11:11
[2019-11-15] MEDS: LACTATED RINGERS 1,000 ML 125 ML IV ×4 (05:46→22:38)
[2019-11-15] MEDS: LACTATED RINGERS 1,000 ML 42 ML IV ×2 (07:09→12:55)
--- NOTE | 2019-11-15 07:18 | PM.PREOP ---
Pre-operative Note Interval Note History & Physical reviewed/Exam performed by Physician: Yes Changes to H&P: No
[2019-11-15] MEDS: ACETAMINOPHEN 325 MG TABLET PO (07:19)
[2019-11-15] MEDS: CELECOXIB 200 MG CAPSULE 400 MG PO (07:20)
[2019-11-15] MEDS: SCOPOLAMINE 1 PATCH TOP (07:25)
[2019-11-15] MEDS: CEFAZOLIN 2 GM/100 ML FROZ.PIGGY IV ×3 (07:50→23:54)
--- NOTE | 2019-11-15 08:32 | SUR.OPER ---
Prone on spine table, head in foam head support, padded chest and pelvic supports, gel pad at knees, lower legs supported by pillows; nipples, genitalia and toes free of pressure, arms secured on foam padded arm boards at <90 degrees abduction. Tape over blanket at thigh secured to table.
[2019-11-15] MEDS: BUPIVACAINE 0.5% (PF) 20 ML, BUPIVACAINE LIPOSOME 266 MG INJ (08:41)
[2019-11-15] MEDS: SODIUM CHLORIDE 0.9% 1,000 ML, GENTAMICIN 80 MG IRR (08:41)
[2019-11-15] MEDS: VANCOMYCIN 1,000 MG VIAL 1000 MG TOP (08:42)
--- NOTE | 2019-11-15 10:27 | PT-IP ANOTE ---
Pt out of her room for her back surgery. will f/u
--- NOTE | 2019-11-15 11:51 | P.OP_ITS ---
Operative Date/Time/Diagnoses Date of procedure: 11/15/19 Time of procedure: 11:51 Pre-op diagnosis: Lumbar scoliosis and stenosis Post-op diagnosis: same Procedure & Clinicians Procedure: T10 through S1 instrumented posterior fusion Iliac crest bone graft aspirate Removal of L5-S1 screws with fusion exploration Same procedure as scheduled: Yes Indications: 54-year-old female who had undergone stage I of her anterior- posterior scoliosis fusion. Plan was to return today for the posterior fusion. Risks and benefits of surgery were discussed and appropriate consents were obtained. Surgeon: Geo Wilson Supervisor Rubber Covering: [place] Anesthesia Type: General Operative Notes Findings: None Closure Type: primary Specimen(s): none sent Prosthetic devices, grafts, tissues, transplants, or devices: NuVasive MAS Reline screws Applied: catheter Estimated Blood Loss (mL): 1,500 Blood products transfused: none Procedure in detail: Patient was brought to the operating room and intubated on the stretcher. The rolled over to the well-padded prone position on the Mau table. A time-out was performed. Antibiotics were given. Back was prepped and draped in the standard sterile fashion. Using fluoroscopy for localization, two 25 cm incisions were made on each side of the midline. Bovie used to come down to and split the fascia. We exposed the previous right-sided L5 and S1 screws. The set screws were removed and the simeon was removed. These were stressed and there appeared to still be motion and looseness in the S1 screw. These were removed. We then percutaneously placed Jamshidi needles down the bilateral pedicles of T10 through S1 using fluoroscopy and neural monitoring. We change these out to guidewires. We dissected down through the soft tissue on the right side to expose the posterolateral gutter with transverse processes through the lumbar spine as well as the posterior aspect of the thoracic spine. We used a bur to decorticate the facets and posterior lamina and transverse processes on the right side. We then exposed the left side and decorticated the sacral ala and the facet and the L5 transverse process. This completed the preparation for the fusion. We then tapped and placed our screws over the guidewires on the right. We manipulated the simeon into a good alignment. The set screws were placed into the screws and tightened down. The towers were removed. We then went over and did the same on the left side and tightened down the simeon and set screws. Final x-rays were taken. The wounds were irrigated. A small stab incision was made over the right PSIS and Jamshidi needle was inserted into the iliac crest. 10 mL of bone marrow was aspirated through this. This was then mixed with Osteocel and bone chips and placed in the posterior and posterolateral gutter for the posterior fusion from T10 through S1 on the right as well as at L5-S1 on the left. The fascia was then closed in layers. Vancomycin powder was placed in the wounds. The superficial tissues closed then the skin was closed. Sterile dressings were placed. They were then rolled over, extubated, and brought to recovery room without complications. Complications: none Post-operative Condition: stable Disposition: PACU Plan for aftercare: Inpatient. Up with PT.
[2019-11-15] MEDS: fentaNYL 100 MCG/2 ML INJ IV ×2 (12:33→12:52)
--- NOTE | 2019-11-15 12:39 | SUR.PHASEI ---
Pt awakened, 08/02 pain, Dr. Florentino to bedside, stated it was ok to give 50mcg of fentanyl, pain 101/. Pt assisted to turn to l and r sides for POC.
--- NOTE | 2019-11-15 12:41 | SUR.PHASEI ---
Report to DONNA Zeng
--- NOTE | 2019-11-15 12:46 | SUR.PHASEI ---
ASSUMED CARE OF PT AT THIS TIME. RECEIVED BEDSIDE REPORT FROM DONNA HOLLIS. PT IN STABLE CONDITION, VSS. PT LAYING ON LEFT SIDE SLEEPING AT THIS TIME, EASILY AROUSABLE TO VOICE WHEN SPOKEN TO. IV SITE CLEAR AND INFUSING WITHOUT DIFFICULTLY. DRSG OBSERVED TO HAVE MODERATE AMOUNT OF DRAINAGE, OUTLINED WITH BLACK SHARPIE. PT APPEARS COMFORTABLE AT THIS TIME. GODFREY SECURED AND DRAINING YELLOW URINE.
[2019-11-15] MEDS: HYDROMORPHONE 2 MG INJ IV ×2 (12:55→13:00)
--- NOTE | 2019-11-15 13:23 | SUR.PHASEI ---
NICOLLE GARG AT BEDSIDE OBSERVING DRAINAGE AMOUNT ON SURGICAL DRESSING ON BACK. PA INSTRUCTED TO CHANGE DRSG, WILL CHANGE DRSG INSTRUCTED AT THIS TIME.
--- NOTE | 2019-11-15 13:32 | SUR.PHASEI ---
SURGICAL BACK DRSG CHANGED BY Chris HOLLIS RN. PT TOLERATED WELL. REPORT CALLED TO DONNA GARCIA AT THIS TIME. PT VSS AND IN STABLE CONDITION. PT BEING TRANSFERRED TO ACUTE CARE FLOOR AT THIS TIME.
--- NOTE | 2019-11-15 13:53 | SUR.PHASEI ---
VITAL SIGNS CHARTED BY ME WHILE PT IN PACU SHOULD OF SHOWN PT ON 3L NASAL CANNULA SUPPLEMNTAL O2.
--- NOTE | 2019-11-15 15:43 | OT.IPNOTE ---
Pt's nurse states pt hs not been up on the floor for long , still sleeping and better to see pt tomorrow for OT eval.
[2019-11-15] MEDS: HYDROMORPHONE 0.5 MG INJ IV ×2 (15:51→20:58)
--- NOTE | 2019-11-15 16:06 | PT-IP ANOTE ---
Checked with the nurse and stated that pt is not ready for PT. will f/u tomorrow.
[2019-11-15] MEDS: HYDROCODONE/ACET 5/325 TABLET 1 TAB PO (18:24)
[2019-11-15] MEDS: CYCLOBENZAPRINE 5 MG TABLET PO (18:24)
[2019-11-15] MEDS: DOCUSATE 100 MG CAPSULE PO (20:58)
[2019-11-15] MEDS: SENNOSIDES 8.6 MG TABLET 17.2 MG PO (20:58)
[2019-11-15] MEDS: CELECOXIB 200 MG CAPSULE PO (20:59)
[2019-11-15] MEDS: CITALOPRAM 20 MG TABLET PO (20:59)
[2019-11-15] MEDS: SODIUM CHLORIDE 0.9% FLUSH 10 ML IV (20:59)
--- NOTE | 2019-11-15 21:42 | PC.NURSE ---
Evening Shift Note- Dressing found to have drained and leaked onto draw sheet. reinforced dressing as ordered. patient tolerated. will continue to monitor.
[2019-11-15] MEDS: HYDROCODONE/ACET 5/325 TABLET 2 TAB PO (22:36)
[2019-11-16] VITALS (8 sets, daily range): BP systolic 88–110; BP diastolic 53–65; PULSE 93–108; RESP 16–17; TEMP 36.4–37.3; O2SAT 90–96
[2019-11-16] MEDS: LACTATED RINGERS 1,000 ML 125 ML IV (04:08)
[2019-11-16] MEDS: HYDROMORPHONE 0.5 MG INJ 0.2 MG IV (04:37)
[2019-11-16] MEDS: hydrOXYzine pamoate 25 MG CAPSULE PO ×2 (04:38→08:44)
[2019-11-16 05:25] LABS: Hematocrit 30.3 % (36-46); Hemoglobin 10.2 g/dL (12.0-16.0)
--- NOTE | 2019-11-16 06:10 | PC.NURSE ---
Pt POD 1 s/p Satinder/TLIF. This was second (and final) of two back surgeries. Bulky gauze with tegaderm dressing saturated with oozing, no copious bleeding noted. Previous RN reinforced dressing per order, no order to change dressing. CMS intact. Denies pain until 0500 then reported pain 6/10 at back surgical site. PRN diluadid and vistaril given with good effect, allowed pt to sleep. Pt felt need to use BSC. Up to BSC with 2pa, FWW, gait belt. Allowed to dangle at bedside before standing. Pt tolerated pivot transfer with activity precautions. When sitting pt began to feel dizzy, assisted back to bed. BP at that time 90/60, HR 98. Recheck BP 89/58 (MAP 68). Hood patent, clear yellow UOP. Denies passing flatus. Pt uses marielle bed for side to side lying only, unable to tolerated supine position. IVF of LR @125cc/hr con't due to dizziness and low BP. Will monitor symptoms and VS.
--- NOTE | 2019-11-16 07:08 | P.PN_ITS ---
Subjective Subjective Date Patient Seen: 11/16/19 Time Patient Seen: 07:08 Interval history: She is doing very well. Pain had been up to about a 7/10 but is back under control with medication. Fairly manageable just laying in bed. She had some cramping in the left leg but that's resolved. Otherwise, legs are doing great. Exam Vital Signs (past 8 hours): - 11/15/19 23:54 11/16/19 01:26 11/16/19 04:43 Temperature 98.0 F 97.6 F Pulse Rate 97 H 106 H 98 H Respiratory Rate 16 16 16 Blood Pressure 92/56 L 110/65 101/53 L Pulse Oximetry 96 11/16/19 06:23 11/16/19 06:39 Temperature Pulse Rate 99 H 108 H Respiratory Rate 16 Blood Pressure 89/58 L 99/58 L Pulse Oximetry Oxygen Delivery Method Room Air Oxygen Flow Rate 0 Const Orientation: alert and oriented x3 Back/Spine/Pelvis Other: Mild to moderate drainage. 5/5 motor both lower extremities Objective Labs Result Diagrams: 11/16/19 04:40 Labs: Laboratory Results - last 24 hr 11/16/19 04:40 Hgb 10.2 L Hct 30.3 L Assessment & Plan Post-op Postoperative Procedures: Procedures Operation Date: 11/13/19 07:45 Actual Procedures Side Surgeon p L1-2,L23,L34,L45 anterior fusion w/cages and bone graft Geo Wilson MD Operation Date: 11/15/19 07:45 Actual Procedures Side Surgeon p T10-S1 instrumentated fusion w/bone graft, removal old L5S1 screws Geo Wilson MD She is doing very well. Mobilize with physical therapy. Anticipate discharge darrion shea Tuesday. Quality VTE Deep Vein Thrombosis/Pulmonary Embolism Present on Admission: No
--- NOTE | 2019-11-16 08:00 | OT.IP.EVAL ---
Current Diagnoses Other forms of scoliosis, lumbar region (11/13/19) Spinal stenosis, lumbar region with neurogenic claudication (11/13/19) Arthrodesis status (11/13/19) Surgery Performed Operation Date: 11/13/19 07:45 Actual Procedures p L1-2,L23,L34,L45 anterior fusion w/cages and bone graft - Geo Wilson MD Operation Date: 11/15/19 07:45 Actual Procedures p T10-S1 instrumentated fusion w/bone graft, removal old L5S1 screws - Geo Wilson MD Past Medical History (Last Updated 10/29/19 @ 10:45 by Macie Recinos RN) Anxiety (Acute) Atypical chest pain (Acute) Balance problem (Acute) Bartholin's cyst (Acute) Chronic constipation (Acute) Chronic low back pain (Acute) Cyst in hand (Acute) Depression (Acute) Difficulty in walking (Acute) Easy bruisability (Acute) Family history of colon cancer in mother (Acute) Fibromyalgia (Acute) History of hysteroscopy (Acute) Jaw fracture (Acute) 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) Osteoarthritis (Acute) Osteoporosis (Acute) Raynaud's disease (Acute) Rheumatoid arthritis (Acute) RLS (restless legs syndrome) (Acute) Scoliosis (Acute) Surgical History (Last Updated 10/29/19 @ 10:43 by Macie Recinos, RN) H/O: hysterectomy (Acute ~2014) History of breast surgery (Acute) History of colonoscopy (Acute) History of hysterectomy (Acute) History of lumbar fusion (Acute ~2016) History of lumbar surgery (Acute ~2016) History of lumbar surgery (Acute) History of repair of left rotator cuff (Acute) History of repair of right rotator cuff (Acute) History of surgery (Acute) History of tonsillectomy (Acute) Hx of arthroscopy of right knee (Acute 12/30/17) Hx of left knee surgery (Acute) Hx of rhinoplasty (Acute) S/P cervical spinal fusion (Acute) Status post Mohs surgery (Acute) Occupational Therapy Inpatient Evaluation/Re-Eval M1 PT/OT-IP Prior Functional Status Start: 11/13/19 16:31 Freq: NEEDED Status: Active Protocol: Document 11/16/19 10:43 CGR (Rec: 11/16/19 10:57 CGR [email or web address]) Medical Review Prior Functional Status Medical History Reviewed Yes Communication able to make needs known Mobility and Gait pt stated that she is independent with all mobilities and ambulation without AD Activities of Daily Living and IADL's Pt was IND in all ADLs Social History Household Members spouse Living Arrangements RV Number of Floors (Floors) One Floor Number of Stairs To Enter/Railing? pt lives in a 5th wheel has 4 steps to enter with L rail ascending has 2 steps to the living room with R rail ascending Home Environment Standard Height Toilet,Walk in Shower,Built-In Shower Seat Home Equipment Front Wheel Walker,Raised Toilet Seat Without Armrests, Hand Held Shower,Senior Sustainability Advisor Employment Status Unemployed Additional Social History Comment Pt lives with her in an RV. Pt has been disabled. M2 OT-IP Current Condition Start: 11/14/19 12:53 Freq: Status: Active Protocol: Document 11/16/19 10:43 CGR (Rec: 11/16/19 10:57 CGR [email or web address]) Occupational Therapy Current Condition Current Condition Evaluation Date 11/16/19 Treatment Diagnosis L1-5 anterior fusion with cage , T10-S1 post instrumentation (sx x 2 days) Diagnosis Onset Date 11/13/19 11/15/19 Post Operative Precautions Lumbar Precautions Log Roll,No Twisting,Limit Bending,Lifting Restriction of 10 lbs,Gait Belt above Incisional Area M3 OT- IP Subjective and Pain Start: 11/14/19 12:53 Freq: Status: Active Protocol: Document 11/16/19 10:43 CGR (Rec: 11/16/19 10:57 CGR [email or web address]) OT- Subjective Occupational Therapy Visit Type Type Initial Evaluation Visit Start Time 07:19 Visit Stop Time 08:00 Total Visit Minutes 41 Notes Pt's present throughout session. OT Pain Assessment Pain When Pain Assessed At Rest Pain Present Pain Present Pain Reported Location lower back Intensity 2 Scale Used Numeric (1 - 10) Management Techniques Modification of Treatment, Timing of Activity with Medications M4 OT- IP ADL's Start: 11/14/19 12:53 Freq: Status: Active Protocol: Document 11/16/19 10:43 CGR (Rec: 11/16/19 10:57 CGR [email or web address]) OT [id number] Comments OT Self-Feeding Comments Not meal time OT ADL-Grooming General Evaluation Grooming Ability Standby Assistance Areas Needing Assistance Retrieving/Set-up of Grooming Items,Combing/Brushing Hair, Face Washing Comments OT Grooming Comments Standing at sink OT ADL-Oral Care General Eval Oral Care Ability Standby Assistance Areas of Assistance Brushing Teeth,Retrieving/Set- Up of Items Comments Oral Care Comments Standing at sink. Pt reports feeling dizzy upon finishing her teeth. Sat in chair at sink then transfered to recliner brought to her. BP 88 /58. Pt states she typically sits in the 90s systolic. OT ADL-Dressing General Eval Lower Body Dressing Ability Total Assistance Areas Needing Assistance Socks OT ADL-Toileting Comments OT Toileting Comments Pt with gruber OT ADL-Bathing Comments OT Bathing Comments Not performed in this session. M5 OT- IP IADL's Start: 11/14/19 12:53 Freq: Status: Active Protocol: Document 11/16/19 10:43 CGR (Rec: 11/16/19 10:57 CGR [email or web address]) OT-Instrumental Activities of Daily Living Deficits IADL Deficits Identified No Deficits Home Safety Awareness Awareness of Need for Assistance at Home Good Awareness Ability to Problem Solve Emergency Able to Problem Solve Situations Medication Management Medication Management No Deficits Identified Money Management Money Management No Deficits Identified Meal Preparation Meal Preparation Caregiver Provides Assist Anodic Treater Anodic Treater Caregiver Provides Assist Driving Driving Caregiver Provides Assist M6 OT- IP Functional Cognition Start: 11/14/19 12:53 Freq: Status: Active Protocol: Document 11/16/19 10:43 CGR (Rec: 11/16/19 10:57 CGR [email or web address]) Cognitive Factors Limiting Selfcare Function Cognitive Ability Level of Alertness Alert Patient Orientation Name,Age,Birthday,Month,Date, Year,Day of Week,Place, Situation Attention Span Ability Capable of Focused Attention, Capable of Sustained Attention Ability to Follow Commands Able to Follow Multi-Step Commands Memory Description No Deficits Noted Safety Awareness No Deficits Noted Problem Solving Ability No deficits Noted Executive Function Ability No Deficits Noted Abstract Thinking Ability No Deficits Noted OT- Vision and Hearing OT- Hearing Assessment OT- Hearing Assessment WFL OT- Vision Assessment Visual Acuity WFL Visual Attentiveness WFL Occular Pursuits WFL Visual Convergence WFL Visual [place]úñ[place] WFL M7 OT- IP Mobility and Balance Start: 11/14/19 12:53 Freq: Status: Active Protocol: Document 11/16/19 10:43 CGR (Rec: 11/16/19 10:57 CGR [email or web address]) OT- Bed Mobility Assessment Rolling Type of Rolling Log Rolling,Roll to Left Level of Assistance Minimal Assistance Supine to Sit Supine to Sit Assist Contact Guard Assistance Scooting Scooting to Edge of Bed Standby Assistance OT-Transfer Assessment Sit to and From Stand Sit to and from Stand Minimal Assistance Transfers Transfer Ability Minimal Assistance Technique Transfer Destination Bed,Chair Transfer Technique Stand Step Pivot Devices Transfer Assistive Devices Gait Belt,Front Wheeled Walker Comments Mobility Comments Pt stood from bed with CGA and stood at sink for ADLs. Became dizzy and sat on chiar provided. Needed min a once recliner brought closer to her for sit to stand and transfer to recliner. OT- Balance Assessment Sitting Balance and Reactions Static Sitting Balance Ability Good Dynamic Sitting Balance Ability Fair M8 OT- IP Objective Assessments Start: 11/14/19 12:53 Freq: Status: Active Protocol: Document 11/16/19 10:43 CGR (Rec: 11/16/19 10:57 CGR [email or web address]) OT Gross Range of Motion Upper Extremity Range of Motion Assessment Within Functional Limits OT Strength Upper Extremity Strength Assessment Within Functional Limits OT- Coordination Assessment Upper Extremity Finger to Nose Test Within Functional Limits Finger Tapping Test Within Functional Limits OT-Muscle Tone Assessment Muscle Tone WNL Yes OT Sensation Assessment Comments Summary Comments No sensation deficits. Edema Edema Absent M9 OT- IP Assessment and Plan Start: 11/14/19 12:53 Freq: Status: Active Protocol: Document 11/16/19 10:43 CGR (Rec: 11/16/19 10:57 CGR [email or web address]) OT Summary Assessment and Plan Potential Rehabilitation Potential Excellent Analytic Complexity at Evaluation Low Summary OT Impairments Pain,Balance,Functional Mobility,Grooming,Dressing, Toileting,Bathing,Toilet Transfers,Shower Transfers, Activity Tolerance Progress Towards Goals Progressing Toward Goals,Slow Progress due to Activity Tolerance Assessment Summary Pt presents as a low complexety evaluation s/p 2 seperate back sx, L1-5 anterior fusion and T10-S1 posterior instrumentation. Pt is progressing well after such a large sx and will likely be safe for discharge home with . Pt will need further ADL training as pt's low BP limited todays session. Goals Grooming Goal Independent Dressing Goal Independent Toileting Goal Independent Bathing Goal Independent Toilet Transfer Goal Independent Shower Transfer Goal Independent Days to Meet Goals 3 Frequency of Treatment Frequency Of Treatment Once a Day Treatment Plan OT Treatment Plan ADL Training,Functional Mobility,Patient/Family Education,Discharge Planning Discharge Recommendations OT Discharge Recommendations Home with Assistance Home Equipment Needs GB in bathroom or toilt riser with handles. Transportation Needs at Discharge Private Vehicle
[2019-11-16] MEDS: CELECOXIB 200 MG CAPSULE PO ×2 (08:43→20:04)
[2019-11-16] MEDS: DOCUSATE 100 MG CAPSULE PO ×2 (08:43→20:04)
[2019-11-16] MEDS: HYDROCODONE/ACET 5/325 TABLET 2 TAB PO (08:44)
--- NOTE | 2019-11-16 11:06 | PT.IIE ---
Current Diagnoses Other forms of scoliosis, lumbar region (11/13/19) Spinal stenosis, lumbar region with neurogenic claudication (11/13/19) Arthrodesis status (11/13/19) Surgery Performed Operation Date: 11/13/19 07:45 Actual Procedures p L1-2,L23,L34,L45 anterior fusion w/cages and bone graft - Geo Wilson MD Operation Date: 11/15/19 07:45 Actual Procedures p T10-S1 instrumentated fusion w/bone graft, removal old L5S1 screws - Geo Wilson MD Surgical History (Last Updated 10/29/19 @ 10:43 by Macie Recinos RN) H/O: hysterectomy (Acute ~2014) History of breast surgery (Acute) History of colonoscopy (Acute) History of hysterectomy (Acute) History of lumbar fusion (Acute ~2015) History of lumbar surgery (Acute ~2015) History of lumbar surgery (Acute) History of repair of left rotator cuff (Acute) History of repair of right rotator cuff (Acute) History of surgery (Acute) History of tonsillectomy (Acute) Hx of arthroscopy of right knee (Acute 12/30/17) Hx of left knee surgery (Acute) Hx of rhinoplasty (Acute) S/P cervical spinal fusion (Acute) Status post Mohs surgery (Acute) Medical History (Last Updated 10/29/19 @ 10:45 by Macie Recinos, RN) Anxiety (Acute) Atypical chest pain (Acute) Balance problem (Acute) Bartholin's cyst (Acute) Chronic constipation (Acute) Chronic low back pain (Acute) Cyst in hand (Acute) Depression (Acute) Difficulty in walking (Acute) Easy bruisability (Acute) Family history of colon cancer in mother (Acute) Fibromyalgia (Acute) History of hysteroscopy (Acute) Jaw fracture (Acute) 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) Osteoarthritis (Acute) Osteoporosis (Acute) Raynaud's disease (Acute) Rheumatoid arthritis (Acute) RLS (restless legs syndrome) (Acute) Scoliosis (Acute) Physical Therapy Inpatient Evaluation/Re-Eval M1 PT/OT-IP Prior Functional Status Start: 11/13/19 16:31 Freq: NEEDED Status: Active Protocol: Document 11/16/19 10:43 CGR (Rec: 11/16/19 10:57 CGR [email or web address]) Medical Review Prior Functional Status Medical History Reviewed Yes Communication able to make needs known Mobility and Gait pt stated that she is independent with all mobilities and ambulation without AD Activities of Daily Living and IADL's Pt was IND in all ADLs Social History Household Members spouse Living Arrangements RV Number of Floors (Floors) One Floor Number of Stairs To Enter/Railing? pt lives in a 5th wheel has 4 steps to enter with L rail ascending has 2 steps to the living room with R rail ascending Home Environment Standard Height Toilet,Walk in Shower,Built-In Shower Seat Home Equipment Front Wheel Walker,Raised Toilet Seat Without Armrests, Hand Held Shower,Program Manufacturing Leader Employment Status Unemployed Additional Social History Comment Pt lives with her in an RV. Pt has been disabled. M1 PT/OT-IP Prior Functional Status Start: 11/14/19 12:53 Freq: NEEDED Status: Active Protocol: Document 11/16/19 11:06 AB (Rec: 11/16/19 13:17 AB [id number]) Medical Review Prior Functional Status Medical History Reviewed Yes Communication able to make needs known Mobility and Gait pt stated that she is independent with all mobilities and ambulation without AD Activities of Daily Living and IADL's Pt was IND in all ADLs Social History Household Members spouse Living Arrangements RV Number of Floors (Floors) One Floor Number of Stairs To Enter/Railing? pt lives in a 5th wheel has 4 steps to enter with L rail ascending has 2 steps to the living room with R rail ascending Home Environment Standard Height Toilet,Walk in Shower,Built-In Shower Seat Home Equipment Front Wheel Walker,Raised Toilet Seat Without Armrests, Hand Held Shower,Program Manufacturing Leader Employment Status Unemployed Additional Social History Comment Pt lives with her in an RV. Pt has been disabled. M2 PT-IP Current Condition Start: 11/13/19 16:31 Freq: NEEDED Status: Active Protocol: Document 11/16/19 11:06 AB (Rec: 11/16/19 13:17 AB [id number]) Physical Therapy Current Condition Current Condition Evaluation Date 11/16/19 Treatment Diagnosis s/p T10-S1 posterior fusion; s /p L1-5 ant fusion; difficulty in walking Onset Date 11/13/2019 Precautions Lumbar Precautions Log Roll,No Twisting,Limit Bending,Lifting Restriction of 10 lbs,Gait Belt above Incisional Area M3 PT-IP Subjective Start: 11/13/19 16:31 Freq: NEEDED Status: Active Protocol: Document 11/16/19 11:06 AB (Rec: 11/16/19 13:17 AB [id number]) Subjective Physical Therapy Visit Type Type Re-Evaluation Visit Start Time 11:06 Visit Stop Time 11:26 Total Visit Minutes 20 Number of BATCH MAKER Visits 0 Physical Therapy Visit Comments Patient Comments pt agreeable to do PT Therapy Pain Assessment Pain When Pain Assessed At Rest Pain Present Pain Present Pain Reported Location lower back Intensity 7 Scale Used Numeric (1 - 10) Pain Management Techniques Re-positioning,Timing of Activity with Medications M4 PT-IP Mobility and Gait Start: 11/13/19 16:31 Freq: NEEDED Status: Active Protocol: Document 11/16/19 11:06 AB (Rec: 11/16/19 13:17 [id number]) PT-Bed Mobility Assessment Supine to Sit Supine to Sit Standby Assistance PT-Transfer Assessment Sit to and From Stand Sit to and from Stand Contact Guard Assistance,1 Person Assistance Equipment Transfer Assistive Device Gait Belt,Front Wheeled Walker Orthotic/Prosthetic Devices or Brace: No Transfers Transfer Destination Chair Transfer Technique ambulated using FWW Transfer Ability Level of Assist Contact Guard Assistance, Minimal Assistance,1 Person Assistance,Use of Upper Extremities Comments Mobility Comments pt sidelying in bed. agreeable to get up. BP in supine: 91/43. pt completed supine to sit SBA. pt was able to sit on EOB SBA. pt without any complaints. BP checked: 95/52. completed sit to stand CGA to min A and pt ambulated to the chair ~ 12 ft CGA to min A. instructed pt to sit on the chair. BP checked: 75/40. positioned pt on chair. LE elevated. BP checked again: 93/61. call light and table placed within reach. informed nurse regarding BP. Gait Assessment Gait Gait Assistance Required: Contact Guard Assist,Minimum Assistance,1 Person Assist Distance (Feet) 12 Able to Maintain Weight Bearing Status Yes During Gait Assistive Devices Assistive Device Gait Belt,Front Wheeled Walker Orthotic/Prosthetic Devices or Brace: No Gait Deviations General Gait Pattern Antalgic,Decreased Stride Length,Decreased Feet Clearance Factors Limiting Gait Function Factors Limiting Gait Function Decreased Activity Tolerance, Decreased Sensation,Decreased Strength,Limited Range of Motion,Pain,Poor Balance,Poor Safety Awareness Comments Gait Comments pls refer to mobility section for details PT-Balance Assessment Sitting Balance and Reactions Static Sitting Balance Ability Good Dynamic Sitting Balance Ability Fair Standing Balance and Reactions Static Standing Balance Ability Fair Dynamic Standing Balance Ability Fair Device Used FWW M5 PT-IP Objective Assessments Start: 11/13/19 16:31 Freq: NEEDED Status: Active Protocol: Document 11/16/19 11:06 AB (Rec: 11/16/19 13:17 AB [id number]) Orientation Orientation/Cognition Level of Alertness Alert Orientation Name,Place,Situation Language Function Ability No Deficits Noted Safety Awareness Understands Safety Issues Memory Description No Deficits Noted Gross Range of Motion Lower Extremity ROM Assessment Within Functional Limits Strength Lower Extremity Strength Assessment Bilaterally Impaired Hip 4-/5 Knee 3+/5 Coordination Assessment Gross Coordination Gross Coordination WNL Muscle Tone Muscle Tone WNL Yes M6 PT-IP Treatment Start: 11/13/19 16:31 Freq: NEEDED Status: Active Protocol: Document 11/16/19 11:06 AB (Rec: 11/16/19 13:17 AB [id number]) Physical Therapy Treatment Education Education Provided Precautions,Safety M7 PT-IP Assessment and Plan Start: 11/13/19 16:31 Freq: NEEDED Status: Active Protocol: Document 11/16/19 11:06 AB (Rec: 11/16/19 13:17 AB [id number]) PT Summary Assessment and Plan Potential Rehabilitation Potential Good Status of Condition at Evaluation Evolving Summary Impairments Pain,ROM,Strength,Balance, Coordination,Sensation,Bed Mobility,Transfers,Gait, Activity Tolerance Assessment Summary pt requiring CGA to min A with mobility using FWW but unable to tolerate much activity with decrease in BP in upright mobility. d/c plan depending on progress. pt plans to go home and family to assist her. will have to complete caregiver training and stair climbing training prior to d/c . Goals Bed Mobility Goal Independent Transfer Goal Independent,Front Wheeled Walker Gait Goal Independent,Front Wheel Walker Gait Distance 150 Other Goals up/down 4 steps L rail ; 2 steps R rail SBA Days to Meet Goals 10 Frequency of Treatment Frequency Of Treatment Twice a Day Treatment Plan Physical Therapy Treatment Plan Bed Mobility Training,Transfer Training,Gait Training, Therapeutic Exercise,Balance Retraining,Post Op Education, Discharge Planning,Hot or Cold Pack,Neuromuscular Re-ed, Coordination Retraining,Manual Therapy Other Recommendations and Next Treatment ambulation, caregiver training Focus and stair training when appropriate Recommendations To Nursing Amount of Assist Needed 1 Person Assist Discharge Recommendations PT Discharge Recommendations Home with Assistance Transportation Needs at Discharge Private Vehicle
[2019-11-16] MEDS: HYDROCODONE/ACET 5/325 TABLET 1 TAB PO ×2 (13:02→17:11)
--- NOTE | 2019-11-16 14:20 | PC.NURSE ---
Ortho: Pt reports she is doing well and having adaq pain control with vicodin. Bp lowest 80's systolic, heart rate 100's, she reports both of these being normal for her. Has been up to the chair x2. Hood out and has been to the bathroom but was unable to void. Pt was a little dizzy this am when up to the chair for the first time but has denied dizziness since. Dressing is saturated and she has some swelling to the rt low back area. Skin showing signs of shear force, dressing changed. Pt reports the incision and area around it feel much better now that the skin is no longer being pulled. Currently taking a nap before PT comes again. Will try then to void. Has been following her lami precautions and has been log rolling. Cont w/poc.
--- NOTE | 2019-11-16 15:18 | PT.IPTN ---
Current Diagnoses Other forms of scoliosis, lumbar region (11/13/19) Spinal stenosis, lumbar region with neurogenic claudication (11/13/19) Arthrodesis status (11/13/19) Surgery Performed Operation Date: 11/13/19 07:45 Actual Procedures p L1-2,L23,L34,L45 anterior fusion w/cages and bone graft - Geo Wilson MD Operation Date: 11/15/19 07:45 Actual Procedures p T10-S1 instrumentated fusion w/bone graft, removal old L5S1 screws - Geo Wilson MD Physical Therapy Treatment Note M2 PT-IP Current Condition Start: 11/13/19 16:31 Freq: NEEDED Status: Active Protocol: Document 11/16/19 11:06 AB (Rec: 11/16/19 13:17 AB [id number]) Physical Therapy Current Condition Current Condition Evaluation Date 11/16/19 Treatment Diagnosis s/p T10-S1 posterior fusion; s /p L1-5 ant fusion; difficulty in walking Onset Date 11/13/2019 Precautions Lumbar Precautions Log Roll,No Twisting,Limit Bending,Lifting Restriction of 10 lbs,Gait Belt above Incisional Area M3 PT-IP Subjective Start: 11/13/19 16:31 Freq: NEEDED Status: Active Protocol: Document 11/16/19 15:18 AB (Rec: 11/16/19 16:56 AB [id number]) Subjective Physical Therapy Visit Type Type Treatment Note Visit Start Time 15:18 Visit Stop Time 15:31 Total Visit Minutes 13 Number of [employer] Visits 0 Physical Therapy Visit Comments Patient Comments pt agreeable to do PT. requested to go back to bed after. Therapy Pain Assessment Pain When Pain Assessed At Rest Pain Present Pain Present Pain Reported Location right leg Intensity 7 Pain Management Techniques Re-positioning,Timing of Activity with Medications M4 PT-IP Mobility and Gait Start: 11/13/19 16:31 Freq: NEEDED Status: Active Protocol: Document 11/16/19 15:18 AB (Rec: 11/16/19 16:56 AB [id number]) PT-Bed Mobility Assessment Supine to Sit Supine to Sit Standby Assistance Sit to Supine Sit to Supine Standby Assistance Scooting Scooting to Edge of Bed Standby Assistance PT-Transfer Assessment Sit to and From Stand Sit to and from Stand Contact Guard Assistance,1 Person Assistance,Use of Upper Extremities Equipment Transfer Assistive Device Gait Belt,Front Wheeled Walker Orthotic/Prosthetic Devices or Brace: No Comments Mobility Comments BP in supine: 93/61. pt completed supine to sit SBA. pt was able to sit on EOB SBA. BP checked: 92/53. pt ambulated in room using FWW 90 ft SBA to CGA. BP checked sitting on EOB: 96/59. pt completed sit to supine SBA. positioned pt in bed. call light and table placed within reach. Gait Assessment Gait Gait Assistance Required: Standby Assistance Distance (Feet) 90 Able to Maintain Weight Bearing Status Yes During Gait Assistive Devices Assistive Device Gait Belt,Front Wheeled Walker Orthotic/Prosthetic Devices or Brace: No Gait Deviations General Gait Pattern Antalgic,Decreased Stride Length,Decreased Feet Clearance Factors Limiting Gait Function Factors Limiting Gait Function Decreased Activity Tolerance, Decreased Strength,Limited Range of Motion,Pain,Poor Balance M5 PT-IP Objective Assessments Start: 11/13/19 16:31 Freq: NEEDED Status: Active Protocol: Document 11/16/19 11:06 AB (Rec: 11/16/19 13:17 AB [id number]) Orientation Orientation/Cognition Level of Alertness Alert Orientation Name,Place,Situation Language Function Ability No Deficits Noted Safety Awareness Understands Safety Issues Memory Description No Deficits Noted Gross Range of Motion Lower Extremity ROM Assessment Within Functional Limits Strength Lower Extremity Strength Assessment Bilaterally Impaired Hip 4-/5 Knee 3+/5 Coordination Assessment Gross Coordination Gross Coordination WNL Muscle Tone Muscle Tone WNL Yes M6 PT-IP Treatment Start: 11/13/19 16:31 Freq: NEEDED Status: Active Protocol: Document 11/16/19 15:18 AB (Rec: 11/16/19 16:56 AB [id number]) Physical Therapy Treatment Education Education Provided Precautions,Safety M7 PT-IP Assessment and Plan Start: 11/13/19 16:31 Freq: NEEDED Status: Active Protocol: Document 11/16/19 15:18 AB (Rec: 11/16/19 16:56 AB [id number]) PT Summary Assessment and Plan Potential Rehabilitation Potential Good Summary Impairments Pain,ROM,Strength,Balance,Bed Mobility,Transfers,Gait, Activity Tolerance Progress Towards Goals Progressing Toward Goals Assessment Summary pt progressing with ambulation . BP seems more stable this afternoon. pt plans to go home with family to assist her . will conduct caregiver training when appropriate as well as stair climbing training. Goals Bed Mobility Goal Independent Transfer Goal Independent,Front Wheeled Walker Gait Goal Independent,Front Wheel Walker Gait Distance 150 Other Goals up/down 4 steps L rail ; 2 steps R rail SBA Days to Meet Goals 10 Frequency of Treatment Frequency Of Treatment Twice a Day Treatment Plan Physical Therapy Treatment Plan Bed Mobility Training,Transfer Training,Gait Training, Therapeutic Exercise,Balance Retraining,Post Op Education, Discharge Planning,Hot or Cold Pack,Neuromuscular Re-ed, Coordination Retraining,Manual Therapy Other Recommendations and Next Treatment ambulation, caregiver training Focus and stair training when appropriate Recommendations To Nursing Amount of Assist Needed 1 Person Assist Discharge Recommendations PT Discharge Recommendations Home with Assistance Transportation Needs at Discharge Private Vehicle
[2019-11-16] MEDS: SODIUM CHLORIDE 0.9% FLUSH 10 ML IV (19:56)
[2019-11-16] MEDS: HYDROMORPHONE 0.5 MG INJ IV (19:56)
[2019-11-16] MEDS: SENNOSIDES 8.6 MG TABLET 17.2 MG PO (20:04)
[2019-11-16] MEDS: CYCLOBENZAPRINE 5 MG TABLET PO (20:04)
[2019-11-16] MEDS: CITALOPRAM 20 MG TABLET PO (20:05)
[2019-11-16] MEDS: ACETAMINOPHEN 325 MG TABLET 650 MG PO (20:06)
[2019-11-17] VITALS (16 sets, daily range): BP systolic 85–117; BP diastolic 48–72; PULSE 71–110; RESP 16–20; TEMP 36.6–37.2; O2SAT 70–100
--- NOTE | 2019-11-17 | DI.CT.S_ITS ---
PROCEDURE: CT ANGIO CHEST PE PROTOCOL INDICATIONS: elevated d-dimer, well's criteria 6, hypoxia / tachycardia TECHNIQUE: After the administration of intravenous contrast, 2 mm thick sections acquired from the pulmonary apices to the posterior costophrenic angles. 3-dimensional maximum intensity projection (MIP) coronal and sagittal reformats were then acquired through the thorax. For radiation dose reduction, the following was used: automated exposure control, adjustment of mA and/or kV according to patient size. COMPARISON: [facility], CT, CT CHEST WO [facility], 10/02/2018, 10:26. FINDINGS: Image quality: Diagnostic. Pulmonary arteries: Pulmonary arteries are normal in size, and demonstrate no intraluminal filling defects to suggest central pulmonary embolism. Lungs and pleura: Scar versus atelectasis is evident on the periphery of the both lungs. There is a most likely prominent area of consolidation identified within the inferior margin of the left lower lobe along the bronchovascular structures. No effusion or pneumothorax is evident. No definite pulmonary nodules are appreciated. Mediastinum: Heart size is normal, without pericardial effusion. No mediastinal or hilar adenopathy. Thoracic aorta is normal in caliber and enhancement. Esophagus is normal in caliber, without hiatal hernia. Bones and chest wall: Soft tissue air is identified within the posterior paraspinal muscles along the thoracic spine which is slightly more prominent at the thoracolumbar junction, but is not adequately characterize. Fluid is seen within the subcutaneous tissues along the posterior aspect of the spine at this location. Skin joyce are noted. Expected postoperative changes related to a recent spinal fusion procedure is identified, which is not adequately characterized on this study. No suspicious bony lesions. No acute fractures are identified. Focal sclerosis involving the 6th right lateral rib correlates with a healed fracture. No acute rib fractures are identified. Postoperative changes of the lower cervical spine are noted, but not adequately characterized. Thyroid gland is slightly heterogeneous, but not adequately characterized. No axillary or supraclavicular adenopathy. Abdomen: A small amount of retroperitoneal air is identified adjacent to the superior aspect of the left kidney which is not completely included on this study. IMPRESSION: 1. No evidence of pulmonary emboli. 2. Mild consolidation within the left lower lobe may represent atelectasis, aspiration, or pneumonia. 3. Postoperative changes of the thoracolumbar junction are not adequately characterize. There is soft tissue edema and fluid are probably postoperative in nature. Developing infection cannot be completely excluded, but is felt to be less likely. 4. Areas of soft tissue air along the posterior aspect of the thoracic spine and within the upper left retroperitoneum adjacent to the left kidney probably is postoperative. Note: The preliminary report provided by [facility] is concordant with the final report. A significant Dictated by: Boris Arroyo M.D. on 11/17/2019 at 8:52 Approved by: Boris Arroyo M.D. on 11/17/2019 at 8:58
[2019-11-17] MEDS: HYDROCODONE/ACET 5/325 TABLET 1 TAB PO (00:11)
[2019-11-17] MEDS: hydrOXYzine pamoate 25 MG CAPSULE PO (00:11)
[2019-11-17] MEDS: SODIUM CHLORIDE 0.9% 500 ML 1000 ML IV (00:55)
--- NOTE | 2019-11-17 01:04 | DI.RAD.S_ITS ---
PROCEDURE: XR CHEST 1V INDICATIONS: low oxygen saturation TECHNIQUE: One view of the chest was acquired. COMPARISON: [facility], CT, CT ANGIO CHEST PE PROTOCOL, 11/17/2019, 2:28. FINDINGS: Surgical changes and devices: The postoperative changes of the thoracolumbar junction are present. Skin joyce are noted. There also are postoperative changes of the lower cervical spine. Lungs and pleura: Mild prominence of the perihilar interstitial markings appear to be present. Linear areas of increased density are seen at the bilateral lung bases. No large effusion or pneumothorax is evident. Mediastinum: Mediastinal contours appear normal. Heart size is enlarged. Bones and chest wall: No suspicious bony lesions. Overlying soft tissues appear unremarkable. IMPRESSION: 1. Cardiomegaly with associated prominent vascular congestion is suggestive of pulmonary edema. 2. Bibasilar atelectasis. Dictated by: Boris Arroyo M.D. on 11/17/2019 at 7:26 Approved by: Boris Arroyo M.D. on 11/17/2019 at 7:29
--- NOTE | 2019-11-17 01:15 | PM.EVENT ---
Event Note Date Patient Seen: 11/17/19 Time Patient Seen: 01:15 Event Note: Patient is being evaluated for request from Dr. Mckay. There was a concern from patient's nurse that her oxygen saturation has dropped into 70s. Patient has been on room air since operative procedure. Is being communicated to me that the SpO2 has been checked with 3 different monitoring devices and all have yielded a sat in the 70s to 80s for approximately 5 minutes. S/P 11/15/19 - T10 through S1 instrumented posterior fusion - Iliac crest bone graft aspirate - Removal of L5-S1 screws with fusion exploration Patient was seen at bedside immediately Resting, no acute distress No dyspnea or tachypnea at rest Breath sounds are diminished Patient is on 6 L of oxygen with SpO2 of 96-98%, have turned down her oxygen to 3 L and her SpO2 maintained 98-99% BP check, LUE w/ patient laying on her right side, 81/49 (HR 106) and supine 97/65 (105) Patient has not been doing her IS by report Abdomen is round, mildly distended, and tender in the LLQ of abdomen on palpation (new discomfort) No right flank or CVA pain No evidence of ecchymosis in the flank or abdominal area Surgical incision intact w/ old blood residue, does not appear to have active bleeding Adequate BLE perfusion, bi-pedal pulses palpable, no edema [place] evaluation of patient she appeared comfortable and in no acute distress. I have titrated down her oxygen from 6 L to 3 L given absence of overt respiratory abnormality and she maintained SpO2 of 98-99%. Patient does have a soft blood pressure. However, patient herself reports a baseline low SBP between 95 to low 100s mmHg. Patient's record was reviewed. It appears she has had intraoperative blood loss of 1500 ml. Received hydroxyzine and hydrocodone at 12:11 a.m on 11/17/19, potentially contributing to some hypotension Review of vital sign trans shows patient to be tachycardic with heart rate ranging 100-110s since operative procedure and her blood pressures have been soft. Patient is asymptomatic. She denies chest pain, palpitations, dizziness, and lightheadedness. Will obtain STAT labs and imaging - CXR - CBC, BMP, Trop, D-Dimer, and Lactate HGB 8.9 (12.1 -> 10.2 -> 8.9_ D-Dimer 637 Na 135 K 3.3 Cl 99 Ca 8.1 GLU 124 BUN 14 Cr 0.7 Lactate 1.1 Trop 1.14 - EKG. ST (v-rate 103). QTC 413. Nonspecific ST changes, consistent with prior EKG. Non-ischemic. Patient's D-Dimer is elevated, even when adjusted for age. Well's Score for PE is 6 (PE #1 dx or likely, HR > 100, immobilization x3 days / recent surgery). Will get a stat CTA of chest to rule out PE. Hypokalemia, K 3.3, may be contributing to her tachycardia. Will replete w/ 60 mEq of KCl. 11/17/2019 0417 CTA of chest available for review No PE No thoracic aortic aneurysm or dissection Pericardial effusion 5 mm thickness Minimal bilateral pleural effusions Mild ill-defined left lower lobe consolidation and left greater than right dependent densities probably related to atelectasis Superimposed pneumonia less likely. Clinical correlation Mild thickening of interlobular septae may be related to mild edema Partial imaging of lower thoracic to lumbar posterior fusion with pedicle screws, rods, and bone graft. Posterior subcutaneous in soft tissue post-surgical gas. Overlying surgical skin joyce. Trop 1.14, will give ASA 324 x1
[2019-11-17 01:42] LABS: Add Manual Diff / Slide Review NO; Basophils Absolute Auto 100 /uL (0-100); Basophils Percent Auto 0.7 % (0-2); Eosinophils Absolute Auto 200 /uL (0-450); Hematocrit 26.2 % (36-46); Hemoglobin 8.9 g/dL (12.0-16.0); Lymphocytes Absolute Auto 3100 /uL (1100-4500); Lymphocytes Percent Auto 27.7 % (25-40); Mean Corpuscular HGB Conc 33.8 % (30-36); Mean Corpuscular Hemoglobin 31.1 PG (26-34); Monocytes Absolute Auto 800 /uL (0-900); Monocytes Percent Auto 7.5 % (3-14); Neutrophils Absolute Auto 6900 /uL (1500-7000); Neutrophils Percent Auto 62.1 % (50-75); Platelet Count 190 X10^3/uL (150-400); Red Blood Cell Count 2.85 X10^6/uL (4.0-5.2); Red Cell Distribution Width 12.8 % (11.6-14.8); White Blood Cell Count 11.1 X10^3/uL (4.5-11.0)
[2019-11-17 01:46] LABS: D Dimer 637 ng/mL (<230); Lactate (Lactic Acid) 1.1 mmol/L (0.7-2.1)
[2019-11-17 01:47] LABS: Blood Urea Nitrogen 14 mg/dL (7-17); Calcium 8.1 mg/dL (8.4-10.2); Carbon Dioxide 32 mmol/L (22-32); Chloride 99 mmol/L (98-107); Estimated Glomerular Filt Rate > 60.0 mL/min (>60); Glucose 124 mg/dL (70-100); HEMOLYSIS < 15 (0-50); Potassium 3.3 mmol/L (3.4-5.1); Sodium 135 mmol/L (137-145)
--- NOTE | 2019-11-17 01:48 | PC.NURSE ---
Addendum entered by Krystal Rubio R.N. 11/17/19 06:00: Aspirin 325mg given Potassium chloride 60 meq given during night. A Second fluid bolus was ordered and given as well Addendum entered by Krystal Rubio R.N. 11/17/19 04:41: Pt was titrated down to 3L NC and saturating at 89-93%, with no respiratory distress noted. CT Scan was done Serial Troponins being taken Addendum entered by Krystal Rubio R.N. 11/17/19 02:37: Critical Troponin 1.140; pt denies any chest pain D-Dimer 637 Original Note: Pt is AxOx3 and reports feeling tired, no other real complaints. Hypotensive with BP highest at 85/48 and O2 at 70% on room air. 3 different pulses ox's applied with a good Pleth wave. RT came to assess patient as well. She was placed on 6L NC and eventually satting at 95%. Lung sounds diminished. Pt states she not been using an incentive spirometer. Dr. Mckay called and notified of change in patients status. He ordered 500mL NS bolus and for RT to come assess and for the hospitalist to take a look at the patient. RODNEY Keith came to assess patient. Ordered stat EKG, Chest X ray, labs, and a bladder scan which showed 270mL B/L foots SCDs on patient.
[2019-11-17] MEDS: POTASSIUM CHLORIDE 20 MEQ TAB 60 MEQ PO (02:13)
[2019-11-17] MEDS: ASPIRIN 325 MG TABLET PO (04:30)
[2019-11-17] MEDS: SODIUM CHLORIDE 0.9% 500 ML IV (04:30)
[2019-11-17 05:29] LABS: Troponin I 0.931 ng/mL (0.01-0.034)
--- NOTE | 2019-11-17 06:08 | P.CONS_ITS ---
History of Present Illness Consult details Date Patient Seen: 11/17/19 Time Patient Seen: 01:35 Chief complaint: Extreme Lat Interbody Fusion/Lmainectomy Reason for consult: Hypoxia Requesting provider: Santino Mckay Narrative: The patient is a 54-year-old female with PMH of migraine headaches, fibromyalgia, scoliosis, and lumbar / cervical spinal stenosis, Raynaud's, RA, and osteoarthritis.. patient underwent a L1-L5 anterior (11/13/2019) and T10-S1 instrumented posterior fusion and removal of old L5-S1 screws with fusion exploration (11/15/2019). Hospitalist service was consulted on 11/17/2019 out of concern for hypoxia. earlier this shift patient was noted to have a sudden drop in her oxygen saturation in to 70% range. During the event patient was described as symptomatic with exception of hypotension. Up to this point the patient has been on room air. Given her drop she has required supplemental oxygen and is able to maintain SpO2 greater than 90% at 6 L. Patient has been refusing to use her incentive spirometer. Patient's records were reviewed. Patient herself does not endorse any fever, chills, diaphoresis, chest pain, palpitations, dizziness, lightheadedness, pleurisy, or dyspnea. She has not had a syncopal event. She is not having a cough or hemoptysis. Patient reports having soft baseline blood pressures at home. she is not complaining of pain. At baseline patient is not oxygen dependent. Records reviewed. Patient has been fairly immobile since her to recent surgical procedures. She is noted to have had an intraoperative blood loss of 1500 mls on 11/17. She is noted to have downward trending hemoglobin. She has had tachycardia for the last couple of days as well as soft blood pressures. Meds Home Medications and Allergies Home Medications Medication Instructions Recorded Confirmed Type cyclobenzaprine 5 mg PO HSP PRN #0 08/31/17 11/13/19 History acetaminophen [Tylenol Extra 500 mg PO Q6HP PRN #0 12/30/17 11/13/19 History Strength] celecoxib [Celebrex] 200 mg PO BID #0 11/24/18 11/13/19 History citalopram 20 mg PO BEDTIME #0 11/24/18 11/13/19 History Allergies Allergy/AdvReac Type Severity Reaction Status Date / Time oxycodone [OXYCODONE] Allergy Severe ANAPHYLAXIS Verified 11/13/19 06:50 gabapentin [GABAPENTIN] Allergy Intermediate RASH/ITCH Verified 11/13/19 06:50 latex [LATEX] Allergy Mild HIVES Verified 11/13/19 06:50 acetaminophen [From Percocet] Allergy Verified 11/15/19 07:05 pregabalin [PREGABALIN] AdvReac Intermediate BLURRED Verified 11/13/19 06:50 VISION, HEADACHES Review of Systems Review of Systems ROS Unobtainable: All systems reviewed & are unremarkable except as noted in HPI and below Exam Vital Signs (past 8 hours): - 11/17/19 00:00 11/17/19 00:05 11/17/19 00:27 Temperature 98.9 F Pulse Rate 105 H 104 H 110 H Respiratory Rate 16 20 Blood Pressure 85/48 L 90/60 Pulse Oximetry 70 L 95 93 11/17/19 02:27 11/17/19 02:53 11/17/19 03:15 Temperature Pulse Rate 94 H Respiratory Rate 16 Blood Pressure 101/69 Pulse Oximetry 88 L 93 90 L 11/17/19 04:47 Temperature Pulse Rate 89 Respiratory Rate Blood Pressure Pulse Oximetry 93 Oxygen Delivery Method High Flow Nasal Cannula Oxygen Flow Rate 3 Narrative Exam Narrative: Constitutional: NAD, appears older than stated age BP 81/49 HR 106 patient is lying on her right side BP 97/65 HR 105 patient in supine position A 500 cc NS bolus was ordered by Dr. Mckay, which is infusing at this time Neurologic: AOx3, no focal neurological deficits Head: NC, AT Eyes: PERRL, EOMI, sclerae anicteric Ears: external ears normal, no otorrhea Nose: external nose normal, no rhinorrhea or epistaxis Throat: DRY MM, oropharynx w/o exudate Neck: no masses, lymphadenopathy, or JVD Chest / Respiratory: equal chest rise, unlabored respiratory effort, no tachypnea Breath sounds are diminished Patient is on 6 L of oxygen with SpO2 96 98%, Oxygen was turned down to 3 L and maintainin in them 98-99% range Heart / CV: S1S2, no murmur, tachycardic HR in the 1 teens Abdomen / GI: Abdomen is round, mildly distended, and tender in the LLQ of abdomen on palpation (new discomfort per patient) Last BM on 11/16 by report No evidence of ecchymosis in the flank or abdominal area Spine: Surgical incisions intact, dressing with old blood residue, does not appear to have active bleeding Tenderness to palpation at incision sites : no suprapubic tenderness, no CVA Peripheral / Vascular: warm to touch, DP and PT pulses palpable, no edema, adequate perfusion, no paresthesia reported Musc: diminished ROM of bilateral lower extremities Skin: no ecchymosis or suspicious lesions / ulcers Objective Labs Result Diagrams: 11/17/19 01:23 11/17/19 01:23 Labs: Laboratory Results - last 24 hr 11/17/19 11/17/19 11/17/19 01:23 01:23 01:23 WBC 11.1 H RBC 2.85 L Hgb 8.9 L Hct 26.2 L MCV 92.0 MCH 31.1 MCHC 33.8 RDW 12.8 Plt Count 190 Neut % (Auto) 62.1 Lymph % (Auto) 27.7 [facility] % (Auto) 7.5 Eos % (Auto) 2.0 Baso % (Auto) 0.7 Neut # (Auto) 6900 Lymph # (Auto) 3100 [facility] # (Auto) 800 Eos # (Auto) 200 Baso # (Auto) 100 D-Dimer 637 H Sodium 135 L Potassium 3.3 L Chloride 99 Carbon Dioxide 32 BUN 14 Creatinine 0.70 Estimated GFR > 60.0 BUN/Creatinine Ratio 20.0 Glucose 124 H Lactate Calcium 8.1 L Troponin I 1.140 H* 11/17/19 11/17/19 01:23 04:39 WBC RBC Hgb Hct MCV MCH MCHC RDW Plt Count Neut % (Auto) Lymph % (Auto) [facility] % (Auto) Eos % (Auto) Baso % (Auto) Neut # (Auto) Lymph # (Auto) [facility] # (Auto) Eos # (Auto) Baso # (Auto) D-Dimer Sodium Potassium Chloride Carbon Dioxide BUN Creatinine Estimated GFR BUN/Creatinine Ratio Glucose Lactate 1.1 Calcium Troponin I 0.931 H* Assessment & Plan Assessment & Plan narrative: ASSESSMENT Hospitalist service was asked to evaluate patient for acute episode of hypoxia. On initial presentation patient appeared comfortable and in no acute respiratory distress. It was able to titrate her oxygen from 6 L to 3 L, which she tolerated with adequate SpO2. She was able to maintain her O2 saturation levels in the upper 90s for the next hour, and then was noted to be 88% on 3 L of oxygen. Patient did not endorse any chest pain or palpitations. She was afebrile. She was tachycardic at time of evaluation. She was also noted to be hypotensive and responded to the 500 cc NS bolus. PLAN Acute hypoxia, new onset, active - Etiology is not entirely clear, ddx: anemia vs PE vs myocardial ischemia vs pneumonia Appears to have had significant blood loss intraoperatively Wells criteria of 6 - STAT CXR - pending - STAT CBC, BMP, trop, D-dimer, and lactate - STAT EKG. ST, non-ischemic - Continuous pulse ox STAT labs were abnormal. HGB 8.9, D-dimer 637, Trop 1.14 Post op blood loss anemia, secondary to surgical procedure, active - Hgb 12.1 -> 10.2 -> 8.9 - Trend Hbg, next 0800 - Consider transfusing for Hgb < 7 Hypotension, acute, active - Given additional bolus for a total of 1 L with positive response - On opioids and [employer] depressing meds that may predispose to hypotension, try to minimize use if able Elevated D-dimer, acute, active - Well's score 6 (PE #1 dx or likely, HR > 100, immobilization x3 days/recent surgery) - STAT CTA CHEST, negative for PE Acute hypokalemia (K 3.3), active - received 60 mEq use of KCL - K in am 0800 Myocardial ischemia type II, acute, present on admission, active - No active chest pain, palpitations, dizziness/lightheadedness, dyspnea - Trop 1.14 -> 0.931, continue trending 0800 and 1400 - EKG. ST (v-rate 103), QTc 413. Nonspecific ST changes. EKG is consistent with prior EKG on file. Non-ischemic. - ASA 324 mg x1
[2019-11-17 08:39] LABS: Hemoglobin 9.3 g/dL (12.0-16.0)
[2019-11-17 08:41] LABS: HEMOLYSIS < 15 (0-50); Potassium 3.6 mmol/L (3.4-5.1)
--- NOTE | 2019-11-17 08:46 | DI.ECHO.S_ITS ---
[facility] +---------+ : : [address] : [address] : : : : [id number] : : : : Phone: [phone]+ Echocardiogram Report + + :Name: SONYA LEGER Study Date: 11/17/2019 Height: 65 in : :[facility] Weight: 162 lb : : Gender: Female BSA: 1.8 m2 : :: 1965 Age: 54 yrs BP: 106/72 mmHg: :Reason For Study: Acute IL : :Ordering Physician: Dr. Mccormick : :Candi Performed By: Mason Sanchez : :Referring: HEMANT CULP : + + Interpretation Summary 1) Normal left ventricular thickness and size with hyperdynamic systolic function (EF 70-75%). 2) No focal wall motion abnormalities. 3) The right ventricle is severely dilated. Right ventricular systolic function is moderately reduced. The right ventricular apical 1/3 of the wall motion is severley hypokinetic. RV free wall has the best wall motion. 4) There is mild to moderate tricuspid regurgitation. 5) Right ventricular systolic pressure is estimated to be 48 mmHg plus the clinically estimated CVP which cannot be estimated on this exam. 6) No prior Echo available for comparison. Procedure: A two-dimensional transthoracic echocardiogram with color flow and Doppler was performed. The study quality was technically difficult. The apical views were difficult to obtain and are suboptimal in quality. There is no prior echocardiogram noted for this patient. The patient was in a tachycardic rhythm during the exam. The heart rate ranged between 104-114 bpm during the study. Left Ventricle: The left ventricle is normal in size. There is normal left ventricular wall thickness. The left ventricle is hyperdynamic. The ejection fraction is estimated to be 70-75%. Left ventricular wall motion is normal. Right Ventricle: The right ventricle is severely dilated. Right ventricular systolic function is moderately reduced. Atria: The left atrial size is normal. The right atrium is severely dilated. The interatrial septum is intact with no evidence for an atrial septal defect. Mitral Valve: The mitral valve is normal in structure and function. There is no mitral regurgitation noted. Aortic Valve: The aortic valve is trileaflet. The aortic valve opens well. No aortic regurgitation is present. Tricuspid Valve: The tricuspid valve leaflets are thin and pliable. There is mild to moderate tricuspid regurgitation. Right ventricular systolic pressure is estimated to be 48 mmHg plus the clinically estimated CVP which cannot be estimated on this exam. Pulmonic Valve: The pulmonic valve is not well visualized. There is trace pulmonic regurgitation. Great Vessels: The aortic root is normal size. The dimensions of the ascending aorta are normal. The inferior vena cava was not visualized. Pericardium/ Pleura There is no pericardial effusion. There is no pleural effusion. MMode/2D Measurements & Calculations LVIDd: 3.7 cm LVOT diam: 1.8 cm LVIDs: 2.4 cm Ao root diam: 3.1 cm FS: 34.3 % EPSS: 0.43 cm IVSd: 1.0 cm LVPWd: 0.96 cm LV posadas. diameter/BSA (cm/m^2): 2.0 LV sys. diameter/BSA (cm/m^2): 1.3 RA long axis: 5.1 cm TAPSE: 1.8 cm RA area: 20.7 cm2 RA vol: 71.5 ml RA : 39.5 ml/m2 RV Mid_phl: 5.3 cm Doppler Measurements & Calculations Med Peak E' Ezequiel: 7.4 cm/sec TR max ezequiel: 345.2 cm/sec Lat Peak E' Ezequiel: 7.7 cm/sec TR max P.7 mmHg Reading Physician:01:51 PM
[2019-11-17] MEDS: CELECOXIB 200 MG CAPSULE PO ×2 (08:49→20:19)
[2019-11-17] MEDS: SODIUM CHLORIDE 0.9% FLUSH 10 ML IV ×2 (08:49→21:36)
[2019-11-17] MEDS: DOCUSATE 100 MG CAPSULE PO ×2 (08:49→20:19)
[2019-11-17] MEDS: HYDROCODONE/ACET 5/325 TABLET 2 TAB PO ×3 (08:49→20:19)
--- NOTE | 2019-11-17 09:01 | PM.PNPO.1 ---
Subjective Subjective Date Patient Seen: 11/17/19 Time Patient Seen: 09:01 Interval history: The patient reports feeling much better this morning. She is now able to breathe without oxygen supplementation. Exam Vital Signs (past 8 hours): - 11/17/19 02:27 11/17/19 02:53 11/17/19 03:15 Temperature Pulse Rate 94 H Respiratory Rate 16 Blood Pressure 101/69 Pulse Oximetry 88 L 93 90 L 11/17/19 04:47 11/17/19 05:30 Temperature 97.9 F Pulse Rate 89 82 Respiratory Rate 16 Blood Pressure 97/57 L Pulse Oximetry 93 95 Oxygen Delivery Method High Flow Nasal Cannula Oxygen Flow Rate 0 Narrative Exam Narrative: Flank and back wounds are dressed with moderate drainage. Light touch and motion are intact in both lower extremities. Objective Labs Result Diagrams: 11/17/19 08:21 11/17/19 08:21 Labs: Laboratory Results - last 24 hr 11/17/19 11/17/19 11/17/19 01:23 01:23 01:23 WBC 11.1 H RBC 2.85 L Hgb 8.9 L Hct 26.2 L MCV 92.0 MCH 31.1 MCHC 33.8 RDW 12.8 Plt Count 190 Neut % (Auto) 62.1 Lymph % (Auto) 27.7 [place] % (Auto) 7.5 Eos % (Auto) 2.0 Baso % (Auto) 0.7 Neut # (Auto) 6900 Lymph # (Auto) 3100 [place] # (Auto) 800 Eos # (Auto) 200 Baso # (Auto) 100 D-Dimer 637 H Sodium 135 L Potassium 3.3 L Chloride 99 Carbon Dioxide 32 BUN 14 Creatinine 0.70 Estimated GFR > 60.0 BUN/Creatinine Ratio 20.0 Glucose 124 H Lactate Calcium 8.1 L Troponin I 1.140 H* 11/17/19 11/17/19 11/17/19 01:23 04:39 08:21 WBC RBC Hgb 9.3 L Hct 27.0 L MCV MCH MCHC RDW Plt Count Neut % (Auto) Lymph % (Auto) [place] % (Auto) Eos % (Auto) Baso % (Auto) Neut # (Auto) Lymph # (Auto) [place] # (Auto) Eos # (Auto) Baso # (Auto) D-Dimer Sodium Potassium Chloride Carbon Dioxide BUN Creatinine Estimated GFR BUN/Creatinine Ratio Glucose Lactate 1.1 Calcium Troponin I 0.931 H* 11/17/19 08:21 WBC RBC Hgb Hct MCV MCH MCHC RDW Plt Count Neut % (Auto) Lymph % (Auto) [place] % (Auto) Eos % (Auto) Baso % (Auto) Neut # (Auto) Lymph # (Auto) [place] # (Auto) Eos # (Auto) Baso # (Auto) D-Dimer Sodium Potassium 3.6 Chloride Carbon Dioxide BUN Creatinine Estimated GFR BUN/Creatinine Ratio Glucose Lactate Calcium Troponin I Assessment & Plan Post-op Postoperative Procedures: Procedures Operation Date: 11/13/19 07:45 Actual Procedures Side Surgeon p L1-2,L23,L34,L45 anterior fusion w/cages and bone graft Geo Wilson MD Operation Date: 11/15/19 07:45 Actual Procedures Side Surgeon p T10-S1 instrumentated fusion w/bone graft, removal old L5S1 screws Geo Wilson MD Postoperative day: 2 Postoperative status: other Postoperative status narrative: 1. Postop T10 through S1 posterior fusion: Neurologic status stable. There is some mild drainage on the dressing and these will be changed. 2. Acute hypoxia last night: This appears to have resolved this morning. PE studies have been negative. 3. Acute myocardial infarction: A the hospitalists have been involved and will be further evaluating her with a cardiac echo. 4. Hypokalemia: This appears to be resolving with potassium supplementation. Postoperative plan: routine post-op care, see orders and other (As per hospitalist service.) Postoperative plan narrative: We will continue routine care for her fusion. We appreciate the input and care of the hospitalist service. Further evaluation today with an echocardiogram and planning with regards to her heart and potassium level per the hospitalist service. Time Spent With Patient Time with patient: 15-24 minutes Quality VTE Deep Vein Thrombosis/Pulmonary Embolism Present on Admission: No
[2019-11-17 09:13] LABS: B Type Natriuretic Peptide 109 (<100)
--- NOTE | 2019-11-17 09:20 | PM.PNPO.1 ---
Subjective Subjective Date Patient Seen: 11/17/19 Time Patient Seen: 09:21 Interval history: Events of last night reviewed. Patient was hypotensive and hypoxic requiring oxygen supplementation. This gradually resolved. She was not having any chest pain or shortness of breath through all of this. She had been up and walking well yesterday and has been up again out of bed today and doing well with normal but mild postoperative pain. At this point, she and her are still quite surprised this happened but feel fairly calm S she is doing so well right now. Exam Vital Signs (past 8 hours): - 11/17/19 02:27 11/17/19 02:53 11/17/19 03:15 Temperature Pulse Rate 94 H Respiratory Rate 16 Blood Pressure 101/69 Pulse Oximetry 88 L 93 90 L 11/17/19 04:47 11/17/19 05:30 Temperature 97.9 F Pulse Rate 89 82 Respiratory Rate 16 Blood Pressure 97/57 L Pulse Oximetry 93 95 Oxygen Delivery Method High Flow Nasal Cannula Oxygen Flow Rate 0 Const Orientation: alert and oriented x3 Back/Spine/Pelvis Other: Mild drainage. 5/5 motor both lower extremities Objective Labs Result Diagrams: 11/17/19 08:21 11/17/19 08:21 Labs: Laboratory Results - last 24 hr 11/17/19 11/17/19 11/17/19 01:23 01:23 01:23 WBC 11.1 H RBC 2.85 L Hgb 8.9 L Hct 26.2 L MCV 92.0 MCH 31.1 MCHC 33.8 RDW 12.8 Plt Count 190 Neut % (Auto) 62.1 Lymph % (Auto) 27.7 [place] % (Auto) 7.5 Eos % (Auto) 2.0 Baso % (Auto) 0.7 Neut # (Auto) 6900 Lymph # (Auto) 3100 [place] # (Auto) 800 Eos # (Auto) 200 Baso # (Auto) 100 D-Dimer 637 H Sodium 135 L Potassium 3.3 L Chloride 99 Carbon Dioxide 32 BUN 14 Creatinine 0.70 Estimated GFR > 60.0 BUN/Creatinine Ratio 20.0 Glucose 124 H Lactate Calcium 8.1 L Troponin I 1.140 H* B-Natriuretic Peptide 11/17/19 11/17/19 11/17/19 01:23 04:39 08:21 WBC RBC Hgb 9.3 L Hct 27.0 L MCV MCH MCHC RDW Plt Count Neut % (Auto) Lymph % (Auto) [place] % (Auto) Eos % (Auto) Baso % (Auto) Neut # (Auto) Lymph # (Auto) [place] # (Auto) Eos # (Auto) Baso # (Auto) D-Dimer Sodium Potassium Chloride Carbon Dioxide BUN Creatinine Estimated GFR BUN/Creatinine Ratio Glucose Lactate 1.1 Calcium Troponin I 0.931 H* B-Natriuretic Peptide 11/17/19 11/17/19 08:21 08:21 WBC RBC Hgb Hct MCV MCH MCHC RDW Plt Count Neut % (Auto) Lymph % (Auto) [place] % (Auto) Eos % (Auto) Baso % (Auto) Neut # (Auto) Lymph # (Auto) [place] # (Auto) Eos # (Auto) Baso # (Auto) D-Dimer Sodium Potassium 3.6 Chloride Carbon Dioxide BUN Creatinine Estimated GFR BUN/Creatinine Ratio Glucose Lactate Calcium Troponin I B-Natriuretic Peptide 109 H Assessment & Plan Post-op Postoperative Procedures: Procedures Operation Date: 11/13/19 07:45 Actual Procedures Side Surgeon p L1-2,L23,L34,L45 anterior fusion w/cages and bone graft Geo Wilson MD Operation Date: 11/15/19 07:45 Actual Procedures Side Surgeon p T10-S1 instrumentated fusion w/bone graft, removal old L5S1 screws Geo Wilson MD Her D-dimer was high. I don't have the final report but evidently her CT angiogram was negative for PE. Her EKG did not change but her troponins spiked and now are coming back down. She was hypokalemic but her potassium is back within the normal range this morning. She still has some acute blood loss anemia with a downward trending H&H, but I would not transfuse with her hemoglobin of 9.3 today. I've discussed this with Dr. Mckay and then with Dr. Christopher. Plan is for a echocardiogram today. I'm fine with her getting anticoagulation if Dr. Christopher feels this would be needed. I anticipate her being in the hospital for a few more days due to cardiac issues. Quality VTE Deep Vein Thrombosis/Pulmonary Embolism Present on Admission: No
[2019-11-17 09:32] LABS: Troponin I 0.804 ng/mL (0.01-0.034)
--- NOTE | 2019-11-17 09:48 | OT.IPNOTE ---
Clarified with Hospitalist if okay to work with pt Troponin levels are high, however trending down from 1.14 to .804 . Per Hospitalist okay to work . with the pt. Attempted to see pt for OT and states too tired and wanting to rest. Able to talk to pt and regrading their questions for OT. Educated regarding body mechanics and precautions for brushing her teeth while standing at the sink. Okay to bend at the hips but not round her back or just spit into a cup. No Charge.
--- NOTE | 2019-11-17 10:10 | PT-IP ANOTE ---
Attempted to see patient at 10:09 for therapy, pt refused due to pain and fatigue. At this point, pt is agreeable to therapy this PM.
--- NOTE | 2019-11-17 14:21 | CM.DPC ---
DCP: continued: Case received again yesterday, EMR for last several days was reviewed and discussed case Team Rounds yesterday and again this morning. Pt had completed the second part of the spinal surgery on 11/15 and PT/OT were recommending a home plan with spouse's supportive care. Discussion in Rounds this morning revealed that pt had cardiac issues, was up most of the night and hospitalist Dr. Christopher was consulted. Dr. Mckay saw pt this morning and then pt's surgeon Dr. Wilson arrived and saw pt. Updated EMR was reviewed. Dr. Wilson indicates he anticipates pt will need to be in the hospital a few more days do to the cardiac issues.. Went to room to check in on pt. She was lying in bed, room dark, eyes closed. RN Shivani noted pt requested be be allowed to sleep until the lab needed to draw her blood. White board in room updated. Will check in with pt tomorrow after Rounds once more is known about what Dr. Christopher is recommending.
--- NOTE | 2019-11-17 14:41 | PT.IPTN ---
Current Diagnoses Other forms of scoliosis, lumbar region (11/13/19) Spinal stenosis, lumbar region with neurogenic claudication (11/13/19) Arthrodesis status (11/13/19) Surgery Performed Operation Date: 11/13/19 07:45 Actual Procedures p L1-2,L23,L34,L45 anterior fusion w/cages and bone graft - Geo Wilson MD Operation Date: 11/15/19 07:45 Actual Procedures p T10-S1 instrumentated fusion w/bone graft, removal old L5S1 screws - Geo Wilson MD Physical Therapy Treatment Note M2 PT-IP Current Condition Start: 11/13/19 16:31 Freq: NEEDED Status: Active Protocol: Document 11/16/19 11:06 AB (Rec: 11/16/19 13:17 AB [id number]) Physical Therapy Current Condition Current Condition Evaluation Date 11/16/19 Treatment Diagnosis s/p T10-S1 posterior fusion; s /p L1-5 ant fusion; difficulty in walking Onset Date 11/13/2019 Precautions Lumbar Precautions Log Roll,No Twisting,Limit Bending,Lifting Restriction of 10 lbs,Gait Belt above Incisional Area M3 PT-IP Subjective Start: 11/13/19 16:31 Freq: NEEDED Status: Active Protocol: Document 11/17/19 14:24 KS (Rec: 11/17/19 15:41 KS [email or web address]) Subjective Physical Therapy Visit Type Type Treatment Note Visit Start Time 14:24 Visit Stop Time 14:41 Total Visit Minutes 17 Number of FACILITIES OFFICER Visits 1 Physical Therapy Visit Comments Patient Comments Pt agreeable to work w/ therapy. PTs /caregiver present during treatment. Therapy Pain Assessment Pain When Pain Assessed During Mobility Pain Present Pain Present Pain Reported Location lower back Scale Used no number given Pain Behaviors Guarding Pain Management Techniques Re-positioning,Timing of Activity with Medications M4 PT-IP Mobility and Gait Start: 11/13/19 16:31 Freq: NEEDED Status: Active Protocol: Document 11/17/19 14:24 KS (Rec: 11/17/19 15:41 KS [email or web address]) PT-Bed Mobility Assessment Supine to Sit Supine to Sit Minimal Assistance,1 Person Assistance Sit to Supine Sit to Supine Contact Guard Assistance,1 Person Assistance Scooting Scooting to Edge of Bed Standby Assistance PT-Transfer Assessment Sit to and From Stand Sit to and from Stand Contact Guard Assistance,1 Person Assistance,Use of Upper Extremities Equipment Transfer Assistive Device Gait Belt,Front Wheeled Walker Orthotic/Prosthetic Devices or Brace: No Transfers Transfer Destination Bed Transfer Technique pt ambulated using FWW. Transfer Ability Level of Assist Contact Guard Assistance, Minimal Assistance,1 Person Assistance,Use of Upper Extremities Comments Mobility Comments Pt was sidelying in bed upon arrival from therapy. Pt noted that she had to use bathroom. Min A for L sidelying to sitting EOB w/ cues to push up from bed. Pt able to remain balanced while sitting EOB 2 min. CGA for sit<>stand w/ FWW . Pt then ambulated to bathroom w/ FWW - nursing notified and in room changing sheets. Pt SBA for sit<>stand from toilet w/ FWW. Pt then ambulated down hallway and back and returned to room. CGA and cues to reach back for bed for stand<>sit, and CGA for sit<>sidelying back into bed. Pt recalled 2/3 precautions (no bending, no twisting). Pts is helpful w/ cues and guarding of pt. Pt left sidelying in bed w/ in room, O2 on, and all needs in reach. Gait Assessment Gait Gait Assistance Required: Contact Guard Assist,1 Person Assist Distance (Feet) 200 Assistive Devices Assistive Device Gait Belt,Front Wheeled Walker Orthotic/Prosthetic Devices or Brace: No Gait Deviations General Gait Pattern Antalgic,Decreased Stride Length,Decreased Feet Clearance Factors Limiting Gait Function Factors Limiting Gait Function Decreased Activity Tolerance, Decreased Strength,Limited Range of Motion,Pain,Poor Balance Comments Gait Comments Pt ambulated ~200 ft from room down hallway and back w/ FWW. present during ambulation. No rest breaks needed. Decreased stride and foot clearance d/t decreased activity tolerance. PT-Balance Assessment Sitting Balance and Reactions Static Sitting Balance Ability Good Dynamic Sitting Balance Ability Fair Standing Balance and Reactions Static Standing Balance Ability Fair Dynamic Standing Balance Ability Fair Device Used FWW M5 PT-IP Objective Assessments Start: 11/13/19 16:31 Freq: NEEDED Status: Active Protocol: Document 11/16/19 11:06 AB (Rec: 11/16/19 13:17 AB [id number]) Orientation Orientation/Cognition Level of Alertness Alert Orientation Name,Place,Situation Language Function Ability No Deficits Noted Safety Awareness Understands Safety Issues Memory Description No Deficits Noted Gross Range of Motion Lower Extremity ROM Assessment Within Functional Limits Strength Lower Extremity Strength Assessment Bilaterally Impaired Hip 4-/5 Knee 3+/5 Coordination Assessment Gross Coordination Gross Coordination WNL Muscle Tone Muscle Tone WNL Yes M6 PT-IP Treatment Start: 11/13/19 16:31 Freq: NEEDED Status: Active Protocol: Document 11/17/19 14:24 KS (Rec: 11/17/19 15:41 KS [email or web address]) Physical Therapy Treatment Education Education Provided Precautions,Safety M7 PT-IP Assessment and Plan Start: 11/13/19 16:31 Freq: NEEDED Status: Active Protocol: Document 11/17/19 14:24 KS (Rec: 11/17/19 15:41 KS [email or web address]) PT Summary Assessment and Plan Potential Rehabilitation Potential Good Summary Impairments Pain,ROM,Strength,Balance,Bed Mobility,Transfers,Gait, Activity Tolerance Assessment Summary Pt was feeling better this afternoon and was able to ambulate ~200ft w/ FWW and CGA . Min A for sidelying to sit, SBA for scooting. CGA for stand<>sit and sit<>sidelying back in bed. Reminded pt and of no BLT precautions. Goals Bed Mobility Goal Independent Transfer Goal Independent,Front Wheeled Walker Gait Goal Independent,Front Wheel Walker Gait Distance 150 Other Goals up/down 4 steps L rail ; 2 steps R rail SBA Days to Meet Goals 10 Frequency of Treatment Frequency Of Treatment Twice a Day Treatment Plan Physical Therapy Treatment Plan Bed Mobility Training,Transfer Training,Gait Training, Therapeutic Exercise,Balance Retraining,Post Op Education, Discharge Planning,Hot or Cold Pack,Neuromuscular Re-ed, Coordination Retraining,Manual Therapy Other Recommendations and Next Treatment ambulation, caregiver training Focus and stair training when appropriate Recommendations To Nursing Amount of Assist Needed 1 Person Assist Discharge Recommendations PT Discharge Recommendations Home with Assistance Transportation Needs at Discharge Private Vehicle
[2019-11-17 14:51] LABS: Troponin I 0.551 ng/mL (0.01-0.034)
--- NOTE | 2019-11-17 16:53 | PM.EVENT ---
Event Note Date Patient Seen: 11/17/19 Event Note: Patient was re-evaluated this afternoon. Blood pressures continue to run low in the 90 systolic range and patient remains mildly hypoxic. Patient states her systolic blood pressures normally run in the low 100 range. She denies any chest pain or dyspnea. She states her major symptom last night was severe fatigue. She ruled in for acute SD with peak troponin 1.140 and trending down. EKG with sinus rhythm, possible old inferior SD, delayed R-wave progression but no acute appearing changes. CTA without acute PE but showed left lower lung infiltrate versus atelectasis although patient denies cough or fever. Pneumonia seems clinically unlikely. Echo showed normal LV EF but with a severely dilated RV with decreased RV systolic function and hypokinesis of the apical 1/3 of the right ventricular wall. Patient does not have prior cardiac history or significant risk factor for cardiac disease. Altogether this is confusing picture of patient having acute SD after extensive lumbar surgery with possibly acute RV dysfunction and wall motion abnormality in RV apex. Again acute PE was ruled out with CTA. It is unclear whether SD is due to acute coronary occlusion versus more likely demand related ischemia from hypotension and anemia postop. At this time patient asymptomatic except for mild hypotension and hypoxia. Reviewed all findings with patient. Recommended 1 unit PRBC transfusion to help anemia and hopefully blood pressures in setting of acute cardiac dysfunction. Aspirin 81 mg daily. Trend cardiac enzymes. Repeat hemoglobin in a.m.. Patient will need outpatient stress test which can be done as a chemical stress test in a couple of weeks with cardiology follow-up.
[2019-11-17] MEDS: CYCLOBENZAPRINE 5 MG TABLET PO (20:19)
[2019-11-17] MEDS: CITALOPRAM 20 MG TABLET PO (20:19)
[2019-11-17] MEDS: SENNOSIDES 8.6 MG TABLET 17.2 MG PO (20:19)
[2019-11-18] VITALS (8 sets, daily range): BP systolic 103–123; BP diastolic 57–72; PULSE 89–101; RESP 15–18; TEMP 36.9–37.3; O2SAT 80–100
[2019-11-18 05:48] LABS: Add Manual Diff / Slide Review NO; Basophils Absolute Auto 100 /uL (0-100); Basophils Percent Auto 0.6 % (0-2); Eosinophils Absolute Auto 300 /uL (0-450); Eosinophils Percent Auto 3.7 % (2-4); Hematocrit 28.8 % (36-46); Hemoglobin 9.9 g/dL (12.0-16.0); Lymphocytes Absolute Auto 2200 /uL (1100-4500); Mean Corpuscular HGB Conc 34.4 % (30-36); Mean Corpuscular Hemoglobin 31.7 PG (26-34); Monocytes Absolute Auto 700 /uL (0-900); Monocytes Percent Auto 7.3 % (3-14); Neutrophils Absolute Auto 5900 /uL (1500-7000); Neutrophils Percent Auto 64.4 % (50-75); Platelet Count 201 X10^3/uL (150-400); Red Blood Cell Count 3.13 X10^6/uL (4.0-5.2); Red Cell Distribution Width 12.9 % (11.6-14.8); White Blood Cell Count 9.1 X10^3/uL (4.5-11.0)
[2019-11-18 05:55] LABS: BUN Creatinine Ratio 16.7 (6-22); Blood Urea Nitrogen 10 mg/dL (7-17); Calcium 8.4 mg/dL (8.4-10.2); Carbon Dioxide 33 mmol/L (22-32); Chloride 103 mmol/L (98-107); Estimated Glomerular Filt Rate > 60.0 mL/min (>60); Glucose 109 mg/dL (70-100); HEMOLYSIS < 15 (0-50); Potassium 3.5 mmol/L (3.4-5.1); Sodium 139 mmol/L (137-145)
[2019-11-18] MEDS: ACETAMINOPHEN 325 MG TABLET 650 MG PO (06:12)
[2019-11-18 06:14] LABS: Troponin I 0.268 ng/mL (0.01-0.034)
--- NOTE | 2019-11-18 06:18 | PC.NURSE ---
Addendum entered by Krystal Rubio R.N. 11/18/19 07:01: 1 unmeasured void last night due to missing the hat. Bladder scanned this morning and it was 283mL; pt not feeling the urge to void, she wants to try after breakfast Original Note: Pt is doing better than the previous night. O2 sats on room air however were 80%. On 3L she was 87% so right now she is on 4L NC at 95%. Lungs diminished. Trying to encourage IS use. b/l calf SCDs on throughout night. Minimal pain. Rated 4 out of 10 this morning, given tylenol. Walking to bathroom well, 1p assist FWW. Tele: ST Orthostatic BP negative. New IV inserted to R AC 20G Critical Troponin but trending down: 0.268 Reported to RODNEY Newsome
[2019-11-18] MEDS: hydrOXYzine pamoate 25 MG CAPSULE PO (07:54)
[2019-11-18] MEDS: CELECOXIB 200 MG CAPSULE PO (07:55)
[2019-11-18] MEDS: SODIUM CHLORIDE 0.9% FLUSH 10 ML IV (07:55)
[2019-11-18] MEDS: HYDROCODONE/ACET 5/325 TABLET 1 TAB PO (07:55)
[2019-11-18] MEDS: DOCUSATE 100 MG CAPSULE PO (07:55)
[2019-11-18] MEDS: ASPIRIN EC 81 MG TABLET PO (07:55)
--- NOTE | 2019-11-18 08:31 | P.PN_ITS ---
Subjective Subjective Date Patient Seen: 11/18/19 Time Patient Seen: 08:31 Interval history: She received 1 unit of packed red blood cells yesterday. Her blood pressure has gone back up to normal. She is not requiring oxygen. She has been up and out of bed. She is just taking Tylenol right now. Exam Vital Signs (past 8 hours): - 11/18/19 05:35 11/18/19 05:37 11/18/19 05:39 Temperature 98.4 F Pulse Rate 96 H Respiratory Rate 16 Blood Pressure 123/66 103/65 111/72 Pulse Oximetry 98 Oxygen Delivery Method Nasal Cannula Oxygen Flow Rate 4 Const Orientation: alert and oriented x3 Back/Spine/Pelvis Other: CDI. 5/5 motor both lower extremities Objective Labs Result Diagrams: 11/18/19 05:38 11/18/19 05:38 Labs: Laboratory Results - last 24 hr 11/17/19 11/17/19 11/17/19 08:21 08:21 08:21 WBC RBC Hgb 9.3 L Hct 27.0 L MCV MCH MCHC RDW Plt Count Neut % (Auto) Lymph % (Auto) [place] % (Auto) Eos % (Auto) Baso % (Auto) Neut # (Auto) Lymph # (Auto) [place] # (Auto) Eos # (Auto) Baso # (Auto) Sodium Potassium 3.6 Chloride Carbon Dioxide BUN Creatinine Estimated GFR BUN/Creatinine Ratio Glucose Calcium Troponin I 0.804 H* B-Natriuretic Peptide Blood Type Antibody Screen Crossmatch 11/17/19 11/17/19 11/17/19 08:21 14:18 14:18 WBC RBC Hgb Hct MCV MCH MCHC RDW Plt Count Neut % (Auto) Lymph % (Auto) [place] % (Auto) Eos % (Auto) Baso % (Auto) Neut # (Auto) Lymph # (Auto) [place] # (Auto) Eos # (Auto) Baso # (Auto) Sodium Potassium Chloride Carbon Dioxide BUN Creatinine Estimated GFR BUN/Creatinine Ratio Glucose Calcium Troponin I 0.551 H* B-Natriuretic Peptide 109 H Blood Type A Negative Antibody Screen Negative Crossmatch See Detail 11/18/19 11/18/19 11/18/19 05:38 05:38 05:38 WBC 9.1 RBC 3.13 L Hgb 9.9 L Hct 28.8 L MCV 92.0 MCH 31.7 MCHC 34.4 RDW 12.9 Plt Count 201 Neut % (Auto) 64.4 Lymph % (Auto) 24.0 L [place] % (Auto) 7.3 Eos % (Auto) 3.7 Baso % (Auto) 0.6 Neut # (Auto) 5900 Lymph # (Auto) 2200 [place] # (Auto) 700 Eos # (Auto) 300 Baso # (Auto) 100 Sodium 139 Potassium 3.5 Chloride 103 Carbon Dioxide 33 H BUN 10 Creatinine 0.60 Estimated GFR > 60.0 BUN/Creatinine Ratio 16.7 Glucose 109 H Calcium 8.4 Troponin I 0.268 H* B-Natriuretic Peptide Blood Type Antibody Screen Crossmatch Assessment & Plan Post-op Postoperative Procedures: Procedures Operation Date: 11/13/19 07:45 Actual Procedures Side Surgeon p L1-2,L23,L34,L45 anterior fusion w/cages and bone graft Geo Wilson MD Operation Date: 11/15/19 07:45 Actual Procedures Side Surgeon p T10-S1 instrumentated fusion w/bone graft, removal old L5S1 screws Geo Wilson MD She is stabilized. Troponin levels are coming back down appropriately. H&H levels appropriately adjusted after 1 unit blood transfusion. Echo showed right ventricular dysfunction. I have discussed this with Dr. Christopher. As she is asymptomatic at this point, plan for discharge home on aspirin. [place] Quality VTE Deep Vein Thrombosis/Pulmonary Embolism Present on Admission: No
--- NOTE | 2019-11-18 08:34 | P.PN_ITS ---
Subjective Subjective Date Patient Seen: 11/18/19 Interval history: Patient is doing much better overall. She walked down hallway without having fatigue, shortness of breath, dizziness or chest discomfort. Blood pressures are in normal range after 1 unit transfusion last night. Her O2 sat is 100% on room air. Troponins continue trending down. Anemia is improved with hemoglobin 9.9 and hematocrit 28.8 this a.m.. As noted, her echo on 11/17/2019 showed a severely dilated RV with reduced RV systolic function and hypokinesis of the apical 1/3 of the RV wall, and mild to moderate TR, normal LV size and function. This is indicative of RV infarction either type 1 from coronary occlusion or type 2 demand related ischemia. In any event, she has markedly improved over the past 24 hours and medically stable to discharge home. Exam Vital Signs (past 8 hours): - 11/18/19 05:35 11/18/19 05:37 11/18/19 05:39 Temperature 98.4 F Pulse Rate 96 H Respiratory Rate 16 Blood Pressure 123/66 103/65 111/72 Pulse Oximetry 98 Oxygen Delivery Method Nasal Cannula Oxygen Flow Rate 4 Objective Labs Result Diagrams: 11/18/19 05:38 11/18/19 05:38 Labs: Laboratory Results - last 24 hr 11/17/19 11/17/19 11/17/19 08:21 08:21 08:21 WBC RBC Hgb 9.3 L Hct 27.0 L MCV MCH MCHC RDW Plt Count Neut % (Auto) Lymph % (Auto) [place] % (Auto) Eos % (Auto) Baso % (Auto) Neut # (Auto) Lymph # (Auto) [place] # (Auto) Eos # (Auto) Baso # (Auto) Sodium Potassium 3.6 Chloride Carbon Dioxide BUN Creatinine Estimated GFR BUN/Creatinine Ratio Glucose Calcium Troponin I 0.804 H* B-Natriuretic Peptide Blood Type Antibody Screen Crossmatch 11/17/19 11/17/19 11/17/19 08:21 14:18 14:18 WBC RBC Hgb Hct MCV MCH MCHC RDW Plt Count Neut % (Auto) Lymph % (Auto) [place] % (Auto) Eos % (Auto) Baso % (Auto) Neut # (Auto) Lymph # (Auto) [place] # (Auto) Eos # (Auto) Baso # (Auto) Sodium Potassium Chloride Carbon Dioxide BUN Creatinine Estimated GFR BUN/Creatinine Ratio Glucose Calcium Troponin I 0.551 H* B-Natriuretic Peptide 109 H Blood Type A Negative Antibody Screen Negative Crossmatch See Detail 11/18/19 11/18/19 11/18/19 05:38 05:38 05:38 WBC 9.1 RBC 3.13 L Hgb 9.9 L Hct 28.8 L MCV 92.0 MCH 31.7 MCHC 34.4 RDW 12.9 Plt Count 201 Neut % (Auto) 64.4 Lymph % (Auto) 24.0 L [place] % (Auto) 7.3 Eos % (Auto) 3.7 Baso % (Auto) 0.6 Neut # (Auto) 5900 Lymph # (Auto) 2200 [place] # (Auto) 700 Eos # (Auto) 300 Baso # (Auto) 100 Sodium 139 Potassium 3.5 Chloride 103 Carbon Dioxide 33 H BUN 10 Creatinine 0.60 Estimated GFR > 60.0 BUN/Creatinine Ratio 16.7 Glucose 109 H Calcium 8.4 Troponin I 0.268 H* B-Natriuretic Peptide Blood Type Antibody Screen Crossmatch Assessment & Plan Assessment & Plan narrative: 1. Postop acute DE, right ventricle apex, type 1 versus type 2 demand related ischemia -continue aspirin EC 81 mg daily. -verbal and written instructions provided to patient to have a chemical stress test and cardiology referral in about 2 weeks. 2. Postop hypotension -resolved 3. Acute hypoxic respiratory failure postop -resolved 4. Postop blood-loss anemia -improved, received 1 unit PRBC on 11/17/2019 -take iron sulfate 324 mg once or twice daily x1 month for anemia. Quality VTE Deep Vein Thrombosis/Pulmonary Embolism Present on Admission: No
--- NOTE | 2019-11-18 08:34 | PM.DS.1 ---
History of Present Illness History of Present Illness Date Patient Seen: 11/18/19 Time Patient Seen: 08:34 Chief complaint: Extreme Lat Interbody Fusion/Lmainectomy Narrative: 54-year-old female with back and right leg pain. She has a history of a previous laminectomy followed by a later fusion at L5-S1. She has a scoliosis curvature that has been progressing over the past several years. She failed conservative management with therapy and medication and injections. Discharge Providers Provider Date of admission: 11/13/19 06:04 Discharge Date: 11/18/19 Consults: 11/15/19 13:58 Consult to Occupational Therapy Evaluate & Treat Comment: Physician Instructions: Evaluate and treat Consult to Physical Therapy Evaluate & Treat Comment: Physician Instructions: Evaluate and Treat 11/17/19 01:30 Consult to Hospitalist Service Routine Comment: Consulting Provider: Alvin Keith Reason for consultation: Pt oxygen saturation 70% on room air 11/17/19 02:27 Consult to Respiratory Therapy Evaluate & Treat Comment: Physician Instructions: Evaluate and treat Discharge provider: Geo Wilson MD Summary Hospital Course Discharge Diagnosis: Lumbar stenosis with radiculopathy Lumbar scoliosis Hospital Course: She was brought to the operating room on 11/13/2019 where she underwent the 1st stage of her scoliosis procedure. This was a L1 through 5 anterior release and fusion. She was brought back to the operating room 2 days later on 11/15/2019 where she underwent the 2nd stage of her scoliosis procedure with a T10 through S1 instrumented fusion. She had a 1500 mL blood loss at this time but her H and H was stable at 10/30 the next day. She was up and walking and mobilizing well. On postoperative day 2 after the 2nd surgery, she became hypotensive and hypoxic. CT AA was performed which ruled out pulmonary embolus. However, her troponins spiked up indicating an acute AR. These appropriately trimmed down over the next day. She was given 1 unit of packed red blood cells for her H&H of /. The next day was appropriately increased to 10/. She was started on baby aspirin. Her hypotension and hypoxia resolved. An echocardiogram showed right ventricular dysfunction, which was the presumed cause of her AR. At this point she was asymptomatic, just taking Tylenol for pain, ambulating independently. This felt that she was stable for discharge. Plan is for her to contact cardiology on the [facility] Tuesday to schedule appointment and a stress test. Status at Discharge Cognitive/behavioral status at discharge: oriented Functional status at discharge: uses cane/walker Overall status at discharge: patient is progressing back to baseline Exam Vital Signs (past 8 hours): - 11/18/19 05:35 11/18/19 05:37 11/18/19 05:39 Temperature 98.4 F Pulse Rate 96 H Respiratory Rate 16 Blood Pressure 123/66 103/65 111/72 Pulse Oximetry 98 Oxygen Delivery Method Nasal Cannula Oxygen Flow Rate 4 Const Orientation: alert and oriented x3 Back/Spine/Pelvis Other: CDI. 5/5 motor both lower extremities Objective Labs Result Diagrams: 11/18/19 05:38 11/18/19 05:38 Labs: Laboratory Results - last 24 hr 11/17/19 11/17/19 11/17/19 08:21 08:21 08:21 WBC RBC Hgb 9.3 L Hct 27.0 L MCV MCH MCHC RDW Plt Count Neut % (Auto) Lymph % (Auto) [place] % (Auto) Eos % (Auto) Baso % (Auto) Neut # (Auto) Lymph # (Auto) [place] # (Auto) Eos # (Auto) Baso # (Auto) Sodium Potassium 3.6 Chloride Carbon Dioxide BUN Creatinine Estimated GFR BUN/Creatinine Ratio Glucose Calcium Troponin I 0.804 H* B-Natriuretic Peptide Blood Type Antibody Screen Crossmatch 11/17/19 11/17/19 11/17/19 08:21 14:18 14:18 WBC RBC Hgb Hct MCV MCH MCHC RDW Plt Count Neut % (Auto) Lymph % (Auto) [place] % (Auto) Eos % (Auto) Baso % (Auto) Neut # (Auto) Lymph # (Auto) [place] # (Auto) Eos # (Auto) Baso # (Auto) Sodium Potassium Chloride Carbon Dioxide BUN Creatinine Estimated GFR BUN/Creatinine Ratio Glucose Calcium Troponin I 0.551 H* B-Natriuretic Peptide 109 H Blood Type A Negative Antibody Screen Negative Crossmatch See Detail 11/18/19 11/18/19 11/18/19 05:38 05:38 05:38 WBC 9.1 RBC 3.13 L Hgb 9.9 L Hct 28.8 L MCV 92.0 MCH 31.7 MCHC 34.4 RDW 12.9 Plt Count 201 Neut % (Auto) 64.4 Lymph % (Auto) 24.0 L [place] % (Auto) 7.3 Eos % (Auto) 3.7 Baso % (Auto) 0.6 Neut # (Auto) 5900 Lymph # (Auto) 2200 [place] # (Auto) 700 Eos # (Auto) 300 Baso # (Auto) 100 Sodium 139 Potassium 3.5 Chloride 103 Carbon Dioxide 33 H BUN 10 Creatinine 0.60 Estimated GFR > 60.0 BUN/Creatinine Ratio 16.7 Glucose 109 H Calcium 8.4 Troponin I 0.268 H* B-Natriuretic Peptide Blood Type Antibody Screen Crossmatch Discharge Plan Discharge Plan Patient Disposition: Home Discharge comment: You should see your provider to have a chemical stress test and to see the administrative services manager in about 2 weeks. Follow-up in 1.[address] Wilson Discharge orders & Medications Prescriptions: New docusate sodium [DOK] 100 mg Capsule 100 mg PO BID PRN (Reason: constipation) Qty: 30 RF: 0 hydrocodone-acetaminophen 5-325 mg Tablet 1 tab PO Q4HR PRN (Reason: Pain, Moderate (4-6)) Qty: 20 RF: 0 hydroxyzine pamoate 25 mg Capsule 25 mg PO Q4HR PRN (Reason: spasms) Qty: 20 RF: 0 ferrous sulfate 325 mg (65 mg iron) tablet 325 mg PO DAILY Qty: 60 RF: 0 aspirin 81 mg Tablet,Delayed Release (Dr/Ec) 81 mg PO DAILY Qty: 30 RF: 0 Continued cyclobenzaprine 5 MG tablet 5 mg PO HSP PRN (Reason: Muscle Spasm) Qty: 0 RF: 0 acetaminophen [Tylenol Extra Strength] 500 MG tablet 500 mg PO Q6HP PRN (Reason: Pain (Scale Score 4-6)) Qty: 0 RF: 0 citalopram 20 mg Tablet 20 mg PO BEDTIME Qty: 0 RF: 0 Discontinued celecoxib [Celebrex] 200 mg Capsule 200 mg PO BID Qty: 0 RF: 0 Follow up/Referrals: Geo Wilson MD [Physician] - Discharge Health Status Multidrug resistant organism: No MDRO Diet/Activity/Treatments Diet: Diet as Tolerated Activity: limited BLT 10 lbs lift Skin/Wound/Dressing Care Report to your healthcare provider any signs of infection, such as:: chills, fever, night sweats, increased pain, unusual drainage and unusual redness Dressing: may change dressing and shower Tuesday Visit Report/Discharge Packet Instructions: How to Prevent Falls, DI for Postoperative Pain, DI for Prescription Opioid Use, DI for Heart Failure, DI for Lateral Lumbar Interbody Fusion Stand Alone Forms: Surgery Discharge Visit Report Forms: Stroke Signs & Symptoms Quality VTE Deep Vein Thrombosis/Pulmonary Embolism Present on Admission: No
--- NOTE | 2019-11-18 11:13 | PT.IPTN ---
Current Diagnoses Other forms of scoliosis, lumbar region (11/13/19) Spinal stenosis, lumbar region with neurogenic claudication (11/13/19) Arthrodesis status (11/13/19) Surgery Performed Operation Date: 11/13/19 07:45 Actual Procedures p L1-2,L23,L34,L45 anterior fusion w/cages and bone graft - Geo Wilson MD Operation Date: 11/15/19 07:45 Actual Procedures p T10-S1 instrumentated fusion w/bone graft, removal old L5S1 screws - Geo Wilson MD Physical Therapy Treatment Note M2 PT-IP Current Condition Start: 11/13/19 16:31 Freq: NEEDED Status: Active Protocol: Document 11/16/19 11:06 AB (Rec: 11/16/19 13:17 AB [id number]) Physical Therapy Current Condition Current Condition Evaluation Date 11/16/19 Treatment Diagnosis s/p T10-S1 posterior fusion; s /p L1-5 ant fusion; difficulty in walking Onset Date 11/13/2019 Precautions Lumbar Precautions Log Roll,No Twisting,Limit Bending,Lifting Restriction of 10 lbs,Gait Belt above Incisional Area M3 PT-IP Subjective Start: 11/13/19 16:31 Freq: NEEDED Status: Active Protocol: Document 11/18/19 10:57 CLB (Rec: 11/18/19 12:43 CLB [id number]) Subjective Physical Therapy Visit Type Type Treatment Note Visit Start Time 10:57 Visit Stop Time 11:13 Total Visit Minutes 16 Number of MOTION PICTURE OPERATOR Visits 2 Physical Therapy Visit Comments Patient Comments Pt agreeable to work with therapy. Therapy Pain Assessment Pain When Pain Assessed During Mobility Pain Present Pain Present Pain Reported Location lower back Scale Used no number given Pain Management Techniques Re-positioning,Timing of Activity with Medications M4 PT-IP Mobility and Gait Start: 11/13/19 16:31 Freq: NEEDED Status: Active Protocol: Document 11/18/19 10:57 CLB (Rec: 11/18/19 12:43 CLB [id number]) PT-Bed Mobility Assessment Rolling Type of Rolling Log Rolling,Roll to Left Supine to Sit Supine to Sit Standby Assistance,Head of Bed Elevated Sit to Supine Sit to Supine Standby Assistance Scooting Scooting to Edge of Bed Standby Assistance PT-Transfer Assessment Sit to and From Stand Sit to and from Stand Contact Guard Assistance,1 Person Assistance,Use of Upper Extremities Equipment Transfer Assistive Device Gait Belt,Front Wheeled Walker Orthotic/Prosthetic Devices or Brace: No Transfers Transfer Destination Bed,Toilet Transfer Technique pt ambulated using FWW. Transfer Ability Level of Assist Standby Assistance,Contact Guard Assistance,Use of Upper Extremities Comments Mobility Comments Pt was able to log roll and perform sit<>supine SBA. Pt required SBA to ambulate to BR and cues to use wall rail for sit<>stand. Pt with out put, RN informed, pt was able to perform own pericare. Pt required Min A once in sidelying to scoot in bed with use of draw sheet. Pt recalled 3/3 precautions. Pt left in bed in sidelying with call light and all needs within reach and bed alarm on. Gait Assessment Gait Gait Assistance Required: Standby Assistance,1 Person Assist Distance (Feet) 200 Assistive Devices Assistive Device Gait Belt,Front Wheeled Walker Orthotic/Prosthetic Devices or Brace: No Gait Deviations General Gait Pattern Antalgic,Decreased Stride Length,Decreased Feet Clearance Factors Limiting Gait Function Factors Limiting Gait Function Decreased Activity Tolerance, Decreased Strength,Limited Range of Motion,Pain,Poor Balance Comments Gait Comments Pt able to ambulate in jose SBA ~200ft, pt with slow but steady gait and good walker management. M5 PT-IP Objective Assessments Start: 11/13/19 16:31 Freq: NEEDED Status: Active Protocol: Document 11/16/19 11:06 AB (Rec: 11/16/19 13:17 AB [id number]) Orientation Orientation/Cognition Level of Alertness Alert Orientation Name,Place,Situation Language Function Ability No Deficits Noted Safety Awareness Understands Safety Issues Memory Description No Deficits Noted Gross Range of Motion Lower Extremity ROM Assessment Within Functional Limits Strength Lower Extremity Strength Assessment Bilaterally Impaired Hip 4-/5 Knee 3+/5 Coordination Assessment Gross Coordination Gross Coordination WNL Muscle Tone Muscle Tone WNL Yes M6 PT-IP Treatment Start: 11/13/19 16:31 Freq: NEEDED Status: Active Protocol: Document 11/17/19 14:24 KS (Rec: 11/17/19 15:41 KS [id number]) Physical Therapy Treatment Education Education Provided Precautions,Safety M7 PT-IP Assessment and Plan Start: 11/13/19 16:31 Freq: NEEDED Status: Active Protocol: Document 11/18/19 10:57 CLB (Rec: 11/18/19 12:43 CLB [id number]) PT Summary Assessment and Plan Summary Impairments Pain,ROM,Strength,Balance,Bed Mobility,Transfers,Gait, Activity Tolerance Assessment Summary Pt improving with all mobility requiring SBA-CGA for all mobility and transfers. Goals Bed Mobility Goal Independent Transfer Goal Independent,Front Wheeled Walker Gait Goal Independent,Front Wheel Walker Gait Distance 150 Other Goals up/down 4 steps L rail ; 2 steps R rail SBA Days to Meet Goals 10 Frequency of Treatment Frequency Of Treatment Twice a Day Treatment Plan Physical Therapy Treatment Plan Bed Mobility Training,Transfer Training,Gait Training, Therapeutic Exercise,Balance Retraining,Post Op Education, Discharge Planning,Hot or Cold Pack,Neuromuscular Re-ed, Coordination Retraining,Manual Therapy Other Recommendations and Next Treatment ambulation, caregiver training Focus and stair training Recommendations To Nursing Amount of Assist Needed 1 Person Assist Discharge Recommendations PT Discharge Recommendations Home with Assistance
--- NOTE | 2019-11-18 12:44 | PT.IPTN ---
Current Diagnoses Other forms of scoliosis, lumbar region (11/13/19) Spinal stenosis, lumbar region with neurogenic claudication (11/13/19) Arthrodesis status (11/13/19) Surgery Performed Operation Date: 11/13/19 07:45 Actual Procedures p L1-2,L23,L34,L45 anterior fusion w/cages and bone graft - Geo Wilson MD Operation Date: 11/15/19 07:45 Actual Procedures p T10-S1 instrumentated fusion w/bone graft, removal old L5S1 screws - Geo Wilson MD Physical Therapy Treatment Note M2 PT-IP Current Condition Start: 11/13/19 16:31 Freq: NEEDED Status: Active Protocol: Document 11/16/19 11:06 AB (Rec: 11/16/19 13:17 AB [id number]) Physical Therapy Current Condition Current Condition Evaluation Date 11/16/19 Treatment Diagnosis s/p T10-S1 posterior fusion; s /p L1-5 ant fusion; difficulty in walking Onset Date 11/13/2019 Precautions Lumbar Precautions Log Roll,No Twisting,Limit Bending,Lifting Restriction of 10 lbs,Gait Belt above Incisional Area M3 PT-IP Subjective Start: 11/13/19 16:31 Freq: NEEDED Status: Active Protocol: Document 11/18/19 12:44 CLB (Rec: 11/18/19 13:15 CLB [id number]) Subjective Physical Therapy Visit Type Type Treatment Note Visit Start Time 12:44 Visit Stop Time 13:03 Total Visit Minutes 19 Notes present for CG training and stair training. Number of BRIDGE INSTRUCTOR Visits 3 Physical Therapy Visit Comments Patient Comments Pt agreeable to work with therapy. Therapy Pain Assessment Pain When Pain Assessed After Treatment Pain Present Pain Present Pain Reported Location lower back Intensity 5 Scale Used Numeric (1 - 10) Pain Management Techniques Re-positioning,Timing of Activity with Medications M4 PT-IP Mobility and Gait Start: 11/13/19 16:31 Freq: NEEDED Status: Active Protocol: Document 11/18/19 12:44 CLB (Rec: 11/18/19 13:15 CLB [id number]) PT-Bed Mobility Assessment Supine to Sit Supine to Sit Standby Assistance Sit to Supine Sit to Supine Minimal Assistance Scooting Scooting to Edge of Bed Standby Assistance PT-Transfer Assessment Sit to and From Stand Sit to and from Stand Standby Assistance,Use of Upper Extremities Equipment Transfer Assistive Device Gait Belt,Front Wheeled Walker Orthotic/Prosthetic Devices or Brace: No Transfers Transfer Destination Bed Transfer Technique pt ambulated using FWW. Transfer Ability Level of Assist Standby Assistance Comments Mobility Comments Pt is SBA for sit<>stand and Pt's assisted pt with sit-supine with Min A of LE's. Left pt in bed in sidelying on left, assisted pt with draw sheet towards center of bed. Pt left in room with call light and all needs within reach and present. Gait Assessment Gait Gait Assistance Required: Standby Assistance,1 Person Assist Distance (Feet) 400 Assistive Devices Assistive Device Gait Belt,Front Wheeled Walker Orthotic/Prosthetic Devices or Brace: No Gait Deviations General Gait Pattern Decreased Stride Length, Decreased Feet Clearance Factors Limiting Gait Function Factors Limiting Gait Function Decreased Activity Tolerance, Decreased Strength,Limited Range of Motion,Pain,Poor Balance Comments Gait Comments Pt ambulated to stairs for stair training then back to room ~400ft with FWW/SBA. Pt's provided WC follow but pt did not need to sit during ambulation. Pt reported increase in pain in incision towards end of ambulation. Stair Climbing Assessment Evaluation Level of Assist On Stairs Contact Guard Assistance,1 Person Assistance Devices Stair Climbing Assistive Devices Left Railing,Right Railing Technique/Endurance Stair Climbing Direction Ascend and Descend Stair Climbing Technique Step to Step Number of Steps Climbed 3 Stair Climbing Set # Repetitions (reps) 2 Comments Stair Climbing Comments Pt used left rail and CHEMICAL PLANT WORKER then right rail with CHEMICAL PLANT WORKER. Pt's able to assist pt with stair climbing giving pt appropriate cues for safety. M5 PT-IP Objective Assessments Start: 11/13/19 16:31 Freq: NEEDED Status: Active Protocol: Document 11/16/19 11:06 AB (Rec: 11/16/19 13:17 AB [id number]) Orientation Orientation/Cognition Level of Alertness Alert Orientation Name,Place,Situation Language Function Ability No Deficits Noted Safety Awareness Understands Safety Issues Memory Description No Deficits Noted Gross Range of Motion Lower Extremity ROM Assessment Within Functional Limits Strength Lower Extremity Strength Assessment Bilaterally Impaired Hip 4-/5 Knee 3+/5 Coordination Assessment Gross Coordination Gross Coordination WNL Muscle Tone Muscle Tone WNL Yes M6 PT-IP Treatment Start: 11/13/19 16:31 Freq: NEEDED Status: Active Protocol: Document 11/17/19 14:24 KS (Rec: 11/17/19 15:41 KS [email or web address]) Physical Therapy Treatment Education Education Provided Precautions,Safety M7 PT-IP Assessment and Plan Start: 11/13/19 16:31 Freq: NEEDED Status: Active Protocol: Document 11/18/19 12:44 CLB (Rec: 11/18/19 13:15 CLB [id number]) PT Summary Assessment and Plan Summary Impairments Pain,ROM,Strength,Balance,Bed Mobility,Transfers,Gait, Activity Tolerance Assessment Summary Pt is SBA-Min A for all mobility requiring Min A only with LE's into bed due to fatigue after ambulation and stair training. Pt's is able to assist pt with all mobility and stair climbing. Pt seems able to d/c with husbands assist when medically stable. Goals Bed Mobility Goal Independent Transfer Goal Independent,Front Wheeled Walker Gait Goal Independent,Front Wheel Walker Gait Distance 150 Other Goals up/down 4 steps L rail ; 2 steps R rail SBA Days to Meet Goals 10 Frequency of Treatment Frequency Of Treatment Twice a Day Recommendations To Nursing Amount of Assist Needed 1 Person Assist Discharge Recommendations PT Discharge Recommendations Home with Assistance
[2019-11-18] MEDS: HYDROCODONE/ACET 5/325 TABLET 2 TAB PO (13:08)
--- NOTE | 2019-11-18 13:29 | CM.DPC ---
DCP: continued: Case discussed in Team Rounds with Dr. Christopher noting that pt was stable for d/c in terms of her medical problems (he was consulting). Dr. Wilson was also here today and has ok'd pt for d/c to home with her as per plan. FRANKIE Atiya noted in Rounds that she would work with pt this morning but that she was doing very well for the home setting. Checked in now: pt and her are going over final d/c instructions with DONNA Cardona and they they will head for [place]. Clinic followup planned.
--- NOTE | 2019-11-18 13:36 | PC.NURSE ---
Pt is dressed and ready for discharge home with Spouse. She has worked with [email or web address] after lunch and has been cleared for the stairs. Pt was given pain meds prior to discharge for 5/10 pain to her back. Dsg to back is CDI. Pt denies pain to her chest, dizziness, nausea, or shortness of breath. Pt IV and tele have been removed. Went over d/c instructions with Pt and Spouse-discussed d/c meds, time of last dose, reviewed stroke education and s/s of infection. Reminded Pt to drink plenty of fluids to prevent constipation and not to drive while on narcotics. Discussed symptoms of heart attack and follow up with [employer] for a chemical stress test, Dr. Wilson for her back, and her PCP. Pt denies further questions and was taken out to POV with Spouse and all belongings.
== END 2019-11-18 13:41 | disposition home or self-care (01) | DRG 453 ==
PROVIDERS: Internal Medicine; Nurse Practitioner Gerontology; Admitting Provider Orthopaedic Surgery; Visit Provider Orthopaedic Surgery
PROC: 0SG00A0 Fusion of Lumbar Vertebral Joint with Interbody Fusion Device, Anterior Approach, Anterior Column, Open Approach (ICD-10-PCS; CPT 22558; principal; 2019-11-13 07:45)
PROC: 0RG7071 Fusion of 2 to 7 Thoracic Vertebral Joints with Autologous Tissue Substitute, Posterior Approach, Posterior Column, Open Approach (ICD-10-PCS; principal; 2019-11-15 07:45)
DX: M48.062 Spinal stenosis, lumbar region with neurogenic claudication (principal); I21.9 Acute myocardial infarction, unspecified; J95.821 Acute postprocedural respiratory failure; D62 Acute posthemorrhagic anemia; M96.0 Pseudarthrosis after fusion or arthrodesis; I97.191 Other postprocedural cardiac functional disturbances following other surgery; I95.9 Hypotension, unspecified; M41.85 Other forms of scoliosis, thoracolumbar region; E87.6 Hypokalemia; M79.7 Fibromyalgia; M54.16 Radiculopathy, lumbar region; G25.81 Restless legs syndrome; Z98.1 Arthrodesis status
CPT/HCPCS: 36415; 36430; 71045; 71275; 72100; 76000; 80048; 83605; 83880; 84132; 84484; 85014; 85018; 85025; 85379; 86850; 86900; 86901; 93005; 93010; 93306; 94760; 97116; 97161; 97162; 97165; 97535; C1776; P9016; C9290; J0330; J0690; J1100; J1170; J2250; J2405; J2704; J3010; Q9967

== ENCOUNTER → 2020-03-27 08:51 | Outpatient (CLI) | payer OTHER, SELFPAY ==
[2019-11-13 12:55] VITALS: BMI 26.9
--- NOTE | 2020-03-27 | DI.ECHO.S_ITS ---
[place] +---------+ Hospital +---------+ : : [address] : : : : [place] : : : : [id number] : : : : Phone: [phone]+ Echocardiogram Report + + :Name: SONYA LEGER Study Date: 03/27/2020 Height: 65 in : :[facility] Weight: 167 lb : : Gender: Female BSA: 1.8 m2 : :: 1965 Age: 55 yrs BP: 118/74 mmHg: :Reason For Study: Cardiomegaly, non-st elevated myocardial : :infarction : :Ordering Physician: Gissell Jeffries : :Omar Performed By: Tara Ortiz : :Referring: GISSELL NELSON : + + Interpretation Summary 1) Normal left ventricular thickness, size, wall motion, and systolic function (EF 55-60%). 2) Borderline enlarged right ventricle with normal function. 3) No significant valvular abnormalities. 4) The right ventricular systolic pressure is estimated to be at least 29 mmHg based on an estimated right atrial pressure of 3 mm Hg. 5) Compared to the Echo done 11/17/2019, RV dilation has decreased from moderate to borderline and RV function has improved from moderately reduced to normal on this study. Procedure: A two-dimensional transthoracic echocardiogram with color flow and Doppler was performed. The study quality was technically adequate. Comparison is made with the echocardiogram of 11/17/2019. Left Ventricle: The left ventricle is normal in size and wall thickness. The ejection fraction is estimated to be 55-60%. Left ventricular systolic function is normal without focal wall motion abnormalities. Right Ventricle: The right ventricle is borderline dilated. The right ventricular systolic function is normal. Atria: Both atria are normal in size. There is no Doppler evidence for an interatrial shunt. Mitral Valve: The mitral valve is normal in structure and function. There is mild mitral regurgitation. Aortic Valve: The aortic valve is trileaflet. The aortic valve opens well. There is no aortic valve stenosis. No aortic regurgitation is present. Tricuspid Valve: The tricuspid valve is normal in structure and function. There is mild tricuspid regurgitation. The right ventricular systolic pressure is estimated to be at least 29 mmHg based on an estimated right atrial pressure of 3 mm Hg. Pulmonic Valve: The pulmonic valve is normal in structure and function. There is a trace or physiologic amount of pulmonic regurgitation. Great Vessels: The aortic root is normal size. The ascending aorta is normal in size. The IVC is of normal diameter and collapses greater than 50% with a sniff. This suggests a low right atrial pressure of 3 mm Hg. Pericardium/ Pleura There is no pericardial effusion. There is no pleural effusion. MMode/2D Measurements & Calculations LVIDd: 4.5 cm LVOT diam: 2.0 cm LVIDs: 3.0 cm Ao root diam: 2.9 cm FS: 33.0 % asc Aorta Diam: 3.1 cm EPSS: 0.80 cm Ao Arch Diam (Prox Trans): 2.5 cm IVSd: 0.52 cm LVPWd: 0.68 cm LV posadas. diameter/BSA (cm/m^2): 2.5 LV sys. diameter/BSA (cm/m^2): 1.6 LA A2 area: 19.4 cm2 RA long axis: 5.0 cm LA A4 area: 18.1 cm2 RA area: 14.3 cm2 LA length (vol): 5.2 cm RA vol: 34.3 ml LA vol: 57.3 ml RA : 18.7 ml/m2 LA vol index: 31.2 ml/m2 IVC diam: 1.6 cm RVD1 (basal): 4.1 cm TAPSE: 2.1 cm Doppler Measurements & Calculations Ao V2 max: 119.3 cm/sec LVOT Max Ezequiel: 98.1 cm/sec Ao V2 mean: 81.6 cm/sec LV V1 max P.8 mmHg Ao max P.7 mmHg LV V1 VTI: 19.2 cm Ao mean P.0 mmHg JEANNE(I,D): 2.4 cm2 Ao V2 VTI: 24.8 cm JEANNE(V,D): 2.6 cm2 sev ratio: 0.77 JEANNE indexed to BSA (cm^2/m^2): 1.3 MV E max ezequiel: 59.0 cm/sec TR max ezequiel: 252.2 cm/sec MV A max ezequiel: 64.8 cm/sec TR max P.5 mmHg MV E/A: 0.91 PA V2 max: 73.5 cm/sec Med Peak E' Ezequiel: 7.7 cm/sec PA V2 mean: 52.0 cm/sec E/E' med: 7.6 PA mean P.2 mmHg Lat Peak E' Ezequiel: 10.7 cm/sec E/E' lat: 5.5 E/e' average: 6.6 MV dec time: 0.21 sec SV(LVOT): 60.8 ml Reading Physician:12:06 PM
--- NOTE | 2020-03-27 | DI.NM.S_ITS ---
PROCEDURE: NM SPEEDY PERF SPECT REST & STR Rest and exercise myocardial perfusion SPECT with gated imaging and ejection fraction RADIOPHARMACEUTICAL: 22.5 mCi Tc-99m sestamibi IV at rest and 25.9 mCi Tc-99m sestamibi IV at peak exercise. A two day-protocol was performed. INDICATIONS: Cardiomegaly, Non-ST elevation (NSTEMI) myocardial infarctio TECHNIQUE: Radiopharmaceutical was injected at peak stress test, and also at rest. SPECT images were obtained. SPECT myocardial perfusion images were displayed in short axis, horizontal long axis, and vertical long axis views. Gated images were reviewed using [employer] software. COMPARISON: None. CARDIAC STRESS: A standard Tim treadmill exercise tolerance test was performed by the patient under the supervision of an attending staff. The patient exercised for 7 minutes and 21 seconds; functional aerobic impairment (WOODY) 0%. Hemodynamic data: There is normal blood pressure and heart rate response to exercise stress. Patient achieved 94% of maximum predicted heart rate at peak exercise. Symptoms: Patient denied chest pain during exercise. EKG: No diagnostic EKG changes of ischemia; rare PVCs. FINDINGS: Raw data: There is good myocardial labeling by radiotracer. No significant motion artifacts. [id number] ratio is 0.24 (normal is less than 0.38 for sestamibi tracer, and less than 0.50 for thallium tracer). Left ventricle function: Gated images demonstrate normal left ventricle wall thickening. No segmental wall motion abnormality. No transient ischemic dilation; TID is 1.0 (normal less than 1.3). The left ventricle resting end-diastolic volume is 70 mL. Left ventricle stress ejection fraction is 71%; normal values are above 45%. Myocardial perfusion: There is normal distribution of activity in the left and right ventricular myocardium. No fixed or reversible perfusion defects. IMPRESSION: Low risk, normal treadmill nuclear stress test 1) No perfusion evidence of ischemia or infarction. 2) Normal left ventricular size, wall motion, and systolic function (EF post stress 87%). 3) No ECG evidence of ischemia. 4) No angina during the study. 5) Average exercise capacity (10.1 METs, WOODY 0%). Target heart rate achieved. Appropriate BP response to exercise. 6) No prior nuclear stress test available for comparison. Dictated by: Larry Nelson MD on 03/28/2020 at 13:14 Approved by: Larry Nelson MD on 03/28/2020 at 13:17
--- NOTE | 2020-03-27 15:48 | PM.TREADMILL ---
Cardiac Stress Test Report Referral & Results Date Patient Seen: 03/27/20 Time Patient Seen: 15:48 Requesting provider: Larry Nelson Indication: nstemi Rest ECG: sinus rhythm Procedure Note: standard roderick protocol 7:21 7.3 METS. Normal exercise capacity WOODY 0%. normal hemodynamic response to exercise. No chest pain or anginal symptoms. Resting EKG normal, no ST shifts. Occasional PVC during exercise. Impression: normal exercise stress test. Nuclear images pending. Please note: Actual ECG tracings can be found in the PACS system.
== END ==
PROVIDERS: Referring Provider Internal Medicine Cardiovascular Disease; Visit Provider Internal Medicine Cardiovascular Disease
DX: I08.1 Rheumatic disorders of both mitral and tricuspid valves (principal); I21.4 Non-ST elevation (NSTEMI) myocardial infarction
CPT/HCPCS: 78452; 93017; 93306; A9502

== ENCOUNTER → 2020-08-07 13:48 | Outpatient (CLI) | payer OTHER, SELFPAY ==
[2019-11-13 12:55] VITALS: BMI 26.9
== END ==
PROVIDERS: Referring Provider Internal Medicine Rheumatology; Visit Provider Internal Medicine Rheumatology
DX: M81.8 Other osteoporosis without current pathological fracture (principal); Z78.0 Asymptomatic menopausal state; Z90.722 Acquired absence of ovaries, bilateral; Z82.62 Family history of osteoporosis
CPT/HCPCS: 77080; 77081

== ENCOUNTER → 2021-01-07 12:10 | Outpatient (CLI) | payer OTHER, SELFPAY ==
[2019-11-13 12:55] VITALS: BMI 26.9
--- NOTE | 2021-01-07 12:11 | DI.MRI.S_ITS ---
PROCEDURE: MR CERVICAL SPINE WO CON INDICATIONS: Paresthesia of skin TECHNIQUE: Noncontrast sagittal T1 spin echo and T2 fast spin echo, sagittal STIR, foraminal oblique sagittal T2 fast spin echo, and axial gradient echo or T2 fast spin echo through the cervical spine. COMPARISON: [facility], CT, CT CERVICAL SPINE WO CON, 03/21/2019, 11:55. [facility], MR, C-SPINE WITHOUT CONTRAST, 02/24/2017, 19:38. FINDINGS: Image quality: Partially degraded by metallic artifact. Alignment and Curvature: There is loss of normal cervical lordosis. Mild grade 1 anterolisthesis of C4 on C5 Bone Marrow: Marrow demonstrates normal overall signal. . Anterior fusion hardware at C4-C7. Interbody devices at C3-C4 and C4-C5. Mild reactive signal within the endplates adjacent to the C2-C3 and C7-T1 intervertebral discs. Spinal Cord: Visualized spinal cord has normal size and signal. No cerebellar tonsillar herniation. Paraspinous Soft Tissues: No paravertebral masses. Prevertebral soft tissues are normal in thickness. C2-C3: Moderate disc desiccation. Mild diffuse disc bulge. Mild facet and uncovertebral hypertrophy bilaterally. Mild canal stenosis. Mild bilateral foraminal stenosis. C3-C4: Interbody device placement. Mild residual disc bulge. Moderate facet and uncovertebral hypertrophy. Limited evaluation secondary to metallic artifact. Limited evaluation for canal stenosis. Probable severe bilateral foraminal stenosis with bilateral C4 nerve root compression. C4-C5: Status post fusion. Mild bilateral facet and uncovertebral hypertrophy bilaterally. Decreased, mild canal stenosis. Decreased, mild right and [id number] left foraminal stenosis. C5-C6: Status post fusion. Mild facet and uncovertebral hypertrophy. No significant canal stenosis. Mild bilateral foraminal stenosis. No change. C6-C7: Status post fusion. Mild residual disc bulge. Mild facet and uncovertebral hypertrophy bilaterally. Mild canal stenosis. Moderate bilateral foraminal stenosis. No change. C7-T1: Mild disc desiccation. Mild facet and uncovertebral hypertrophy bilaterally. Mild canal stenosis. Mild bilateral foraminal stenosis. No change. IMPRESSION: 1. Postsurgical sequelae. 2. Multilevel degenerative disc and facet disease, as well as uncovertebral hypertrophy. 3. Mild multilevel canal stenoses. A suboptimal evaluation for canal stenosis at C3-C4 secondary to metallic artifact. CT myelography may be helpful for further assessment for canal stenosis at this level, if clinically indicated. 4. Multilevel foraminal stenosis, worst at C3-C4 where there is associated intraforaminal nerve root compression. Recommend correlation with clinical symptoms to ascertain relevance of this finding. Dictated by: Rachel Pa M.D. on 01/07/2021 at 13:24 Approved by: Rachel Pa M.D. on 01/07/2021 at 13:33
== END ==
PROVIDERS: Referring Provider Internal Medicine; Visit Provider Internal Medicine
DX: M50.31 Other cervical disc degeneration, high cervical region (principal); M48.02 Spinal stenosis, cervical region; M50.322 Other cervical disc degeneration at C5-C6 level
CPT/HCPCS: 72141

== ENCOUNTER 2021-03-31 08:30 | Emergency (ER) | payer OTHER, SELFPAY ==
[2019-11-13 12:55] VITALS: BMI 26.9
[2021-03-31] VITALS (8 sets, daily range): BP systolic 98–163; BP diastolic 56–77; PULSE 60–99; RESP 11–22; TEMP 36.7; O2SAT 84–100; BMI 28.3
[2021-03-31 09:09] LABS: Add Manual Diff / Slide Review NO; Basophils Absolute Auto 0 /uL (0-100); Basophils Percent Auto 0.5 % (0-2); Eosinophils Absolute Auto 100 /uL (0-450); Eosinophils Percent Auto 1.1 % (2-4); Hematocrit 41.7 % (36-46); Hemoglobin 13.7 g/dL (12.0-16.0); Lymphocytes Absolute Auto 1600 /uL (1100-4500); Lymphocytes Percent Auto 16.7 % (25-40); Mean Corpuscular HGB Conc 32.9 % (30-36); Mean Corpuscular Hemoglobin 30.1 PG (26-34); Mean Corpuscular Volume 91.6 fL (80-100); Monocytes Absolute Auto 100 /uL (0-900); Monocytes Percent Auto 1.5 % (3-14); Neutrophils Absolute Auto 7500 /uL (1500-7000); Neutrophils Percent Auto 80.2 % (50-75); Platelet Count 229 X10^3/uL (150-400); Red Blood Cell Count 4.55 X10^6/uL (4.0-5.2); White Blood Cell Count 9.3 X10^3/uL (4.5-11.0)
[2021-03-31] MEDS: SODIUM CHLORIDE 0.9% 1,000 ML 1000 ML IV (09:16)
[2021-03-31 09:20] LABS: Alanine Aminotransferase 14 IU/L (<35); Albumin 4.2 g/dL (3.5-5.0); Albumin Globulin Ratio 1.5 (1.0-2.8); Alkaline Phosphatase 66 U/L (38-126); Aspartate Aminotransferase 23 IU/L (14-36); BUN Creatinine Ratio 23.7 (6-22); Bilirubin Total 0.4 mg/dL (0.2-1.3); Blood Urea Nitrogen 18 mg/dL (7-17); Calcium 9.4 mg/dL (8.4-10.2); Carbon Dioxide 28 mmol/L (22-32); Chloride 103 mmol/L (98-107); Estimated Glomerular Filt Rate > 60.0 mL/min (>60); Globulin 2.8 g/dL (1.7-4.1); Glucose 141 mg/dL (70-100); HEMOLYSIS < 15 (0-50); Lipase 127 U/L (23-300); Sodium 137 mmol/L (137-145)
--- NOTE | 2021-03-31 09:25 | ED.GENADULT ---
HPI - General Adult General Chief complaint: Abdominal Pain Stated complaint: stomach ache, weakness Time Seen by Provider: 03/31/21 08:31 Source: patient and family Mode of arrival: Wheelchair Limitations: no limitations History of Present Illness HPI narrative: Patient is a 56-year-old female here for evaluation of left-sided abdominal discomfort and nausea and foul-smelling urine. Patient states that she has had foul-smelling dark urine for the past week or so. No fevers. She has never had urinary tract infection in the past. States this morning she woke up with left-sided abdominal discomfort. It continued until just prior to arrival. She states that now she is feeling better but not completely back to normal. Is having nauseous. The abdominal discomfort and not change with palpation or movement. Did not change when she urinated this morning. Has not had a bowel movement since the symptoms started. Related Data Home Medications Medication Instructions Recorded Confirmed cyclobenzaprine 5 mg PO HSP PRN #0 08/31/17 11/13/19 acetaminophen [Tylenol Extra 500 mg PO Q6HP PRN #0 12/30/17 11/13/19 Strength] citalopram 20 mg PO BEDTIME #0 11/24/18 11/13/19 Previous Rx's Medication Instructions Recorded aspirin 81 mg PO DAILY #30 tab 11/18/19 aspirin 81 mg PO DAILY #30 tab 11/18/19 docusate sodium [DOK] 100 mg PO BID PRN #30 cap 11/18/19 ferrous sulfate 325 mg PO BID #60 tab 11/18/19 ferrous sulfate 325 mg PO DAILY #60 tab 11/18/19 hydrocodone-acetaminophen 1 tab PO Q4HR PRN #20 tab 11/18/19 hydroxyzine pamoate 25 mg PO Q4HR PRN #20 cap 11/18/19 sulfamethoxazole-trimethoprim 1 tab PO BID 3 Days #6 tab 03/31/21 [Bactrim DS] Allergies Allergy/AdvReac Type Severity Reaction Status Date / Time oxycodone [OXYCODONE] Allergy Severe ANAPHYLAXIS Verified 11/13/19 06:50 gabapentin [GABAPENTIN] Allergy Intermediate RASH/ITCH Verified 11/13/19 06:50 latex [LATEX] Allergy Mild HIVES Verified 11/13/19 06:50 acetaminophen [From Percocet] Allergy Verified 11/15/19 07:05 pregabalin [PREGABALIN] AdvReac Intermediate BLURRED Verified 11/13/19 06:50 VISION, HEADACHES Review of Systems Constitutional Constitutional: Denies fever(s) Cardiovascular Cardiovascular: Denies chest pain and Denies dyspnea Respiratory Respiratory: Denies dyspnea Gastrointestinal Gastrointestinal: Reports abdominal pain, Denies change in bowel habits, Reports nausea and Denies vomiting Genitourinary Genitourinary: Reports dysuria Genitourinary: Reports dysuria Comments: Foul-smelling urine Musculoskeletal Comments: Left-sided flank pain Integumentary/Breasts Skin/Breast: Denies rash Neurologic Neurologic: Reports system reviewed and no additional complaints, except as documented Hematologic/Lymphatic On Anticoagulants: No Allergic/Immunologic Allergic/Immunologic: Reports system reviewed and no additional complaints, except as documented Patient History Medical History (Updated 03/31/21 @ 11:10 by Lenny Pulido DO) Anxiety Atypical chest pain Balance problem Bartholin's cyst Chronic constipation Chronic low back pain Cyst in hand Depression Difficulty in walking Easy bruisability Family history of colon cancer in mother Fibromyalgia History of hysteroscopy Jaw fracture Migraine aura without headache Osteoarthritis Osteoporosis Raynaud's disease Rheumatoid arthritis RLS (restless legs syndrome) Scoliosis Surgical History H/O: hysterectomy (~2014) History of breast surgery History of colonoscopy History of hysterectomy History of lumbar fusion (~2015) History of lumbar surgery (~2015) History of lumbar surgery History of repair of left rotator cuff History of repair of right rotator cuff History of surgery History of tonsillectomy Hx of arthroscopy of right knee (12/30/17) Hx of left knee surgery Hx of rhinoplasty S/P cervical spinal fusion Status post Mohs surgery Family History Brother Age: 60 Hypertension Brother Age: 71 Hypertension High cholesterol Father Skin cancer Hypertension Mother Colon cancer Hypertension Stroke Sister Age: 64 Hypertension Sister Age: 70 Hypertension High cholesterol Social History household members: spouse Smoking Status: Never smoker alcohol intake: current Smoking Status: Never smoker alcohol intake frequency: holidays/special occasions only Substance Use Type: does not use Exam Initial Vital Signs Initial Vital Signs: Vital Signs Temperature 98.0 F 06/08/21 08:42 Pulse Rate 76 03/31/21 08:42 Respiratory Rate 18 03/31/21 08:42 Blood Pressure 127/71 03/31/21 08:42 Pulse Oximetry 99 03/31/21 08:42 Const General: cooperative and comfortable Limitations: mental status not altered HENMT Head: normal to inspection and normocephalic Resp Effort & Inspection: normal respiratory effort Auscultation: clear to auscultation bilaterally Cardio Rate: regular rate Rhythm: regular rhythm GI Inspection: non-distended Palpation: soft, No firm and tender (Left-sided abdomen) Back/Spine/Pelvis Back: CVA tenderness (Mild left-sided CVA tenderness) Skin Lesions: no lesions Neuro General: patient alert and patient awake Cognition: normal cognition Speech: speech normal Extrem General: normal to inspection and capillary refill normal Psych Appearance: grossly normal and well kempt Course Orders Ordered: ED Orders 03/31/21 08:49 EKG-12 Lead Stat 03/31/21 09:02 Complete Blood Count AUTO DIFF Stat Comprehensive Metabolic Panel Stat Lipase Stat Troponin I Stat 03/31/21 09:25 CT kidney ureter bladder (KUB) Stat 03/31/21 10:52 Urine Microscopic Stat Discontinued Medications Sodium Chloride (Normal Saline 0.9%) 1,000 mls @ 1,000 mls/hr IV BOLUS ONE Stop: 03/31/21 09:51 Last Infusion: 03/31/21 10:36 Dose: 0 mls/hr Documented by: Admin: 03/31/21 09:16 Dose: 1,000 mls/hr Documented by: [email or web address] Ketorolac Tromethamine (Ketorolac 30 Mg/Ml Vial) 30 mg IV NOW ONE Stop: 03/31/21 09:26 Last Admin: 03/31/21 09:49 Dose: 30 mg Documented by: ANTONIA Morphine Sulfate (Morphine 4 Mg/Ml Inj) 4 mg IV NOW ONE Stop: 03/31/21 09:26 Last Admin: 03/31/21 09:52 Dose: 4 mg Documented by: ANTONIA Ondansetron HCl (Ondansetron 4 Mg/2 Ml Inj) 4 mg IV NOW ONE Stop: 03/31/21 09:31 Last Admin: 06/08/21 09:43 Dose: 4 mg Documented by: [email or web address] Vital Signs Vital signs: Vital Signs - 8 hr 03/31/21 08:42 03/31/21 08:48 03/31/21 09:00 Temperature 98.0 F Pulse Rate 76 70 76 Respiratory Rate 18 11 L Blood Pressure 127/71 Pulse Oximetry 99 100 84 L 03/31/21 09:30 03/31/21 09:39 03/31/21 10:00 Temperature Pulse Rate 82 82 88 Respiratory Rate 22 18 16 Blood Pressure 124/69 104/62 Pulse Oximetry 99 87 L 100 03/31/21 10:30 Temperature Pulse Rate 99 H Respiratory Rate 17 Blood Pressure 98/56 L Pulse Oximetry 97 Medical Decision Making Lab Data Lab results reviewed: Yes I reviewed the patient's lab results. Result diagrams: 03/31/21 09:02 03/31/21 09:02 Labs: Lab Results 03/31/21 03/31/21 Range/Units 09:02 09:02 WBC 9.3 (4.5-11.0) X10^3/uL RBC 4.55 (4.0-5.2) X10^6/uL Hgb 13.7 (12.0-16.0) g/dL Hct 41.7 (36-46) % MCV 91.6 (80-100) fL MCH 30.1 (26-34) PG MCHC 32.9 (30-36) % RDW 14.0 (11.6-14.8) % Plt Count 229 (150-400) X10^3/uL Neut % (Auto) 80.2 H (50-75) % Lymph % (Auto) 16.7 L (25-40) % [place] % (Auto) 1.5 L (3-14) % Eos % (Auto) 1.1 L (2-4) % Baso % (Auto) 0.5 (0-2) % Neut # (Auto) 7500 H (0398-7166) /uL Lymph # (Auto) 1600 (9114-0370) /uL [place] # (Auto) 100 (0-900) /uL Eos # (Auto) 100 (0-450) /uL Baso # (Auto) 0 (0-100) /uL Sodium 137 (137-145) mmol/L Potassium 4.0 (3.4-5.1) mmol/L Chloride 103 (98-107) mmol/L Carbon Dioxide 28 (22-32) mmol/L BUN 18 H (7-17) mg/dL Creatinine 0.76 (0.52-1.04) mg/dL Estimated GFR > 60.0 (>60) mL/min BUN/Creatinine Ratio 23.7 H (6-22) Glucose 141 H (70-100) mg/dL Calcium 9.4 (8.4-10.2) mg/dL Total Bilirubin 0.4 (0.2-1.3) mg/dL AST 23 (14-36) IU/L ALT 14 (<35) IU/L Alkaline Phosphatase 66 (38-126) U/L Troponin I < 0.012 (0.01-0.034) ng/mL Total Protein 7.0 (6.3-8.2) g/dL Albumin 4.2 (3.5-5.0) g/dL Globulin 2.8 (1.7-4.1) g/dL Albumin/Globulin Ratio 1.5 (1.0-2.8) Lipase 127 (23-300) U/L Point of Care Testing Test Results Negative Urine Dip Bedside Urine Glucose Negative Bedside Urine Bilirubin - Negative Bedside Urine Ketone - Negative Urine Specific [place] 1.020 Bedside Urine Occult Blood +++ Bedside Urine pH 6.0 Bedside Urine Protein - Negative Bedside Urine Urobilinogen - Negative Bedside Urine Nitrite + Positive Bedside Urine Leukocytes +/- 15 Esterase Point of care testing: Point of Care Testing Test Results Negative Urine Dip Bedside Urine Glucose Negative Bedside Urine Bilirubin - Negative Bedside Urine Ketone - Negative Urine Specific [place] 1.020 Bedside Urine Occult Blood +++ Bedside Urine pH 6.0 Bedside Urine Protein - Negative Bedside Urine Urobilinogen - Negative Bedside Urine Nitrite + Positive Bedside Urine Leukocytes +/- [address] scan - abdomen/pelvis: Radiologist's Impression: [address] [id number] Scan ReportSigned Patient: Eli Doyle LMR#: [id number]: 1965Acct:[id number]/Sex: 56 / FDate of Service: 03/31/21Loc: EDAccession Number: [id number] Procedure: CT kidney ureter bladder (KUB) Ordering Provider: Lenny Pulido D.O. PROCEDURE: CT KIDNEY URETER BLADDER (KUB) INDICATIONS: Left side pain concern for stone TECHNIQUE: Axial sections were acquired from the lung bases to the pubic symphysis. Coronal and sagittal reformats were performed. For radiation dose reduction, the following was used: automated exposure control, adjustment of mA and/or kV according to patient size. COMPARISON:None. FINDINGS: Image quality: Excellent. Lung bases: Unremarkable. Heart: No significant findings. URINARY: Right Kidney: No stones or hydronephrosis. Right Ureter: No hydroureter. Left Kidney: No stones or hydronephrosis. Left Ureter: No hydroureter. Bladder: Normal wall thickness. There is a 3 mm calculus within the right posterior urinary bladder. ABDOMEN: Liver: Unremarkable. Gallbladder: Unremarkable. Biliary ducts: Unremarkable. Pancreas: Unremarkable. Spleen: Unremarkable. Adrenal Glands: Unremarkable. Stomach and Bowel: Stomach, small bowel loops, and colon are unremarkable. Peritoneum: No abnormal intraperitoneal fluid. No free air. Abdominal Wall: There is a left posterolateral flank hernia containing a loop of proximal descending colon, measuring roughly 76 mm diameter. There is no evidence of associated bowel strangulation, nor obstruction. Appendix is not seen. No evidence of appendicitis. Abdominal Nodes: No enlarged retroperitoneal or mesenteric lymph nodes. Vessels: Aorta and inferior vena cava are normal in size. PELVIS: Pelvic Organs: Unremarkable. Pelvic Nodes: Unremarkable. Miscellaneous: No inguinal hernias are seen. Bones: Unremarkable. Thoracolumbar fusion hardware is present. IMPRESSION: 1. No evidence of urinary tract obstruction. No renal calcification. 2. Right urinary bladder calculus. 3. Appendix not seen. No evidence of appendicitis. 4. Left flank hernia containing large bowel. No evidence of associated bowel strangulation, or obstruction. Dictated by: Rachel Pa M.D. on 03/31/2021 at 9:41 Approved by: Rachel Pa M.D. on 03/31/2021 at 9:45 ECG Data Attestation: I personally reviewed and interpreted this ECG as follows: Prior ECG tracings: not available for review Interpretation: Sinus rhythm Ventricular rate is 72 Left axis deviation Normal QRS Normal QTC No ST T wave changes MDM Narrative Medical decision making narrative: Patient does have a nitrite positive urine. Given her urinary symptoms over the past couple days I do feel that this is a urinary tract infection. Will treat with antibiotics. She is afebrile. Does not have leukocytosis and is well-appearing. I feel that her left-sided abdominal discomfort is not pyelonephritis given her presentation. I am unsure the exact etiology of this. Potentially she had renal colic and then passed a stone prior to arrival. I do not feel that the hernia seen on the CT scan is related to her symptoms as well. There is no other signs of intra-abdominal surgical issue. Will send home with antibiotics. She was given strict return precautions. She was told about the findings of the CT scan. She expressed understanding and agreement. Discharge Plan Departure Patient Disposition: Home Clinical Impression: Urinary tract infection, Abdominal pain, Hernia of flank Instructions: DI for Urinary Tract Infection (UTI) Activity Restrictions/Additional Instructions: Your workup here today is fairly consistent with the urinary tract infection. We will start you on antibiotics. A urine culture was pending at the time of your discharge and we will contact you if we need to change any antibiotics when this results in the next 2-3 days. Contact your primary provider for follow-up. Return to the emergency department for any new or worsening symptoms Prescriptions: New sulfamethoxazole-trimethoprim [Bactrim DS] 800-160 mg tablet 1 tab PO BID 3 Days Qty: 6 RF: 0 No Action cyclobenzaprine 5 MG tablet 5 mg PO HSP PRN (Reason: Muscle Spasm) Qty: 0 RF: 0 acetaminophen [Tylenol Extra Strength] 500 MG tablet 500 mg PO Q6HP PRN (Reason: Pain (Scale Score 4-6)) Qty: 0 RF: 0 citalopram 20 mg Tablet 20 mg PO BEDTIME Qty: 0 RF: 0 docusate sodium [DOK] 100 mg Capsule 100 mg PO BID PRN (Reason: constipation) Qty: 30 RF: 0 hydrocodone-acetaminophen 5-325 mg Tablet 1 tab PO Q4HR PRN (Reason: Pain, Moderate (4-6)) Qty: 20 RF: 0 hydroxyzine pamoate 25 mg Capsule 25 mg PO Q4HR PRN (Reason: spasms) Qty: 20 RF: 0 ferrous sulfate 325 mg (65 mg iron) tablet 325 mg PO DAILY Qty: 60 RF: 0 aspirin 81 mg Tablet,Delayed Release (Dr/Ec) 81 mg PO DAILY Qty: 30 RF: 0 Referrals: June Galarza MD [Primary Care Provider] -
[2021-03-31 09:31] LABS: Troponin I < 0.012 ng/mL (0.01-0.034)
[2021-03-31] MEDS: ONDANSETRON 4 MG/2 ML INJ IV (09:43)
[2021-03-31] MEDS: KETOROLAC 30 MG/ML VIAL IV (09:49)
[2021-03-31] MEDS: MORPHINE 4 MG/ML INJ IV (09:52)
[2021-03-31] MEDS: TRIMETH/SULFA 160/800 (DS) TABLET 1 TAB PO (11:27)
[2021-03-31 11:35] LABS: Bacteria Urine Many (>30); Culture Indicated Urine Specimen Cultured; RBC Urine 1-5/HPF (0-5/HPF); WBC Urine 10-30/HPF (0-5/HPF)
== END 2021-03-31 11:33 | disposition home or self-care (01) ==
PROVIDERS: Emergency Provider Emergency Medicine; PCP Internal Medicine
DX: N39.0 Urinary tract infection, site not specified (principal); R10.9 Unspecified abdominal pain; K45.8 Other specified abdominal hernia without obstruction or gangrene
CPT/HCPCS: 36415; 74176; 80053; 81003; 81015; 81025; 83690; 84484; 85025; 87077; 87086; 87186; 93005; 96361; 96374; 96375; 99284; J1885; J2270; J2405